=== PATIENT | female | born 1940 | race Caucasian/White ===

== ENCOUNTER 2016-12-24 10:18 | Inpatient (IN) | payer MEDICARE, MEDICAID ==
[~2016-12-24] VITALS: Ht 157.5 cm; Wt 58.6 kg
[2016-12-24] VITALS (8 sets, daily range): BP systolic 108–122; BP diastolic 50–56; PULSE 71–85; RESP 18–20; TEMP 98.2–98.3; O2SAT 92–100
[2016-12-24] MEDS ORDERED: SODIUM CHLOR 0.9% 250 ML INJ 250 ML IV ONE (11:15)
[2016-12-24] MEDS ORDERED: SODIUM CHLORIDE 0.9% FLUSH 10 ML FLUSH IVF PRN (11:15)
[2016-12-24 11:48] LABS: APTT (PATIENT) 23.9 SEC (24.3-30.1); PROTHROMBIN TIME - PATIENT 10.5 SEC (9.8-11.6)
[2016-12-24 12:03] LABS: ALKALINE PHOSPHATASE 68 U/L (45-117); ALT (GPT) 22 U/L (10-53); ANION GAP 10 MEQ/L (5-15); AST (GOT) 18 U/L (15-37); BICARBONATE 21.4 MEQ/L (21.0-32.0); BLOOD UREA NITROGEN 7 MG/DL (7-18); CHLORIDE 91 MEQ/L (98-107); GLOMERULAR FILTRATION RATE 120 ML/MIN (>89); MAGNESIUM 1.5 MG/DL (1.5-2.5); POTASSIUM 4.1 MEQ/L (3.5-5.1); TOTAL BILIRUBIN ADULT 0.5 MG/DL (0.2-1.0)
[2016-12-24 12:04] LABS: CREATINE KINASE 58 U/L (26-192)
[2016-12-24 12:06] LABS: SODIUM (NA) 122 MEQ/L (136-145)
[2016-12-24 12:07] LABS: BACTERIA, URINE OCC /hpf; BLOOD, URINE NEG (NEG); COMMENT (UR) CULT NOT INDICATED; CULTURE IF INDICATED CULT NOT INDICATED; GLUCOSE,URINE NEG (NEG); HYALINE CAST, URINE 1 /lpf (RARE); KETONE, URINE NEG (NEG); MUCUS URINE FEW /lpf (OCC); NITRITE,URINE NEG (NEG); SQUAMOUS EPITHELIAL CELL URINE 3 /hpf (0-5); TRANSITIONAL EPI CELLS, URINE <1 /hpf; URINE COLOR YELLOW (YELLW/STRAW)
--- NOTE | 2016-12-24 12:42 | RADRPT ---
EXAM DATE/TIME: 12/24/2016 12:15 [facility] COMPARISON: No previous studies available for comparison. INDICATIONS : Near syncopal episode to day, fall hit head. RADIATION DOSE: 3489 CTDIvol (mGy) MEDICAL HISTORY : Carcinoma, lung. Thyroid disease SURGICAL HISTORY : None. ENCOUNTER: Initial ACUITY: 1 day PAIN SCALE: 5/10 LOCATION: cranial TECHNIQUE: Multiple contiguous axial images were obtained of the head. Using automated exposure control and adj ustment of the mA and/or kV according to patient size, radiation dose was kept as low as reasonably a chievable to obtain optimal diagnostic quality images. FINDINGS: CEREBRUM: The ventricles are normal for age. No evidence of midline shift, mass lesion, hemorrhage or acute in farction. No extra-axial fluid collections are seen. POSTERIOR FOSSA: The cerebellum and brainstem are intact. The 4th ventricle is midline. The cerebellopontine angle i s unremarkable. EXTRACRANIAL: The visualized portion of the orbits is intact. SKULL: Soft tissue swelling consistent with a small cephalhematoma is identified along the right posterior p arietal region. The calvaria is intact. No evidence of skull fracture. CONCLUSION: Right parietal cephalhematoma. No evidence of acute intracranial trauma. No evidence of acute infarct, hemorrhage, mass or edema. Norberto Harry MD on December 24, 2016 at 12:38 Board Certified Radiologist. This report was verified electronically.
[2016-12-24] MEDS ORDERED: SODIUM CHLOR 0.9% 1000 ML INJ 1,000 ML IV SCH ×2 (12:45→15:00)
--- NOTE | 2016-12-24 13:03 | RADRPT ---
EXAM DATE/TIME: 12/24/2016 11:59 [facility] COMPARISON: CHEST SINGLE AP, December 24, 2016, 11:55. INDICATIONS : Neck pain, fall. MEDICAL HISTORY : Carcinoma, lung. SURGICAL HISTORY : None. ENCOUNTER: Initial ACUITY: 1 day PAIN SCORE: 2/10 LOCATION: Left neck FINDINGS: There are 7 cervical type vertebral bodies. The alignment is adequate. There are advanced degenerativ e changes in the atlantodens joint. There are degenerated disc at C3/4, C4/5 and C5/6. There is bony foraminal narrowing at C4/5 and C5/6 bilaterally. Note is made of a mild compression fracture in the upper/midthoracic spine. This appears sclerotic an d may be old. CONCLUSION: 1. Degenerative arthritic changes. No acute cervical fracture. 2. Incidental note is made of an age indeterminate compression fracture in the upper/mid thoracic spi ne Roldan Goldstein MD on December 24, 2016 at 12:59 Board Certified Radiologist. This report was verified electronically.
--- NOTE | 2016-12-24 13:10 | RADRPT ---
EXAM DATE/TIME: 12/24/2016 11:55 [facility] COMPARISON: No previous studies available for comparison. INDICATIONS : Palpitations. MEDICAL HISTORY : Carcinoma, lung. SURGICAL HISTORY : None. ENCOUNTER: Initial ACUITY: 1 day PAIN SCORE: 0/10 LOCATION: Bilateral chest FINDINGS: Lungs are hyperinflated. There is coarse interstitial prominence throughout both lungs with emphysema tous changes in the upper lobes. There is no evidence of segmental or lobar consolidation. There are no masslike densities. Right subclavian [id number] is in place. Heart is normal in size. 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 No evidence of significant consolidation or suspicious mass densities. Nroberto Harry MD on December 24, 2016 at 13:07 Board Certified Radiologist. This report was verified electronically.
--- NOTE | 2016-12-24 13:13 | PD ---
HPI Chief Complaint: Fall Time Seen by Provider: 10:28 Travel History International Travel<30 days: No Contact w/Intl Traveler<30days: No Traveled to known affect area: No History of Present Illness HPI This is a 76-year-old female patient with depressed medical history of small cell lung cancer with status post recent chemotherapy completed last dose last week who presents with a complaint of feeling in lightheaded and dizzy and passing out and subsequently hitting the back of her head on the floor. Patient uncertain whether she completely blacked out. Patient complains of feeling weak. Patient complains of headache in the back of that he wear she has noted there is a area of swelling. Patient denies chest pain shortness of breath nausea vomiting diarrhea fever chills and also denies urinary symptoms. PFSH Past Medical History Cancer: Yes (Lung currently on Chemo) Medical other: Yes (Vit D defiency) Musculoskeletal: Yes Thyroid Disease: Yes ?: Not Social History Alcohol Use: No Tobacco Use: Yes (0.5ppd) Substance Use: No Allergies-Medications (Allergen,Severity, Reaction): Coded Allergies: Shellfish (Verified Allergy, Unknown, 12/24/16) Reported Meds & Prescriptions Reported Meds & Active Scripts Active Reported [Salt Tablet] 1 Tab PO DAILY Tramadol (Tramadol HCl) 50 Mg Tab 50 Mg PO Q6H PRN [place] (Hydrocodone-Acetaminophen) 7.5-325 mg Tab 1 Tab PO Q8HR PRN Vitamin D3 (Cholecalciferol) 1,000 Unit Tab 1,000 Units PO DAILY Levothyroxine (Levothyroxine Sodium) 50 Mcg Tab 50 Mcg PO DAILY Duoneb (Ipratropium-Albuterol Neb) 0.5-2.5 Mg/3 Ml Neb 3 Ml NEB Q6HR PRN Review of Systems ROS Limitations: Clinical Condition General / Constitutional: No: Fever, Chills, Weight Gain, Weight Loss, Other Eyes: No: Diploplia, Blurred Vision, Photophobia, Drainage, Redness, Foreign Body Sensation, Pain, Tearing, Blind Spots, Visual changes, Blindness, Other HENT: No: Headaches, Vertigo, Lightheadedness, Sore Throat, Rhinitis, Rhinorrhea, Congestion, Nosebleed, Neck Stiffness, Neck Pain, Masses, Gingival Bleeding, Dental Difficulties, Ear Discharge, Earache, Other Cardiovascular: No: Chest Pain or Discomfort, Palpitations, Irregular Rhythm, Tachycardia, Diaphoresis, Syncope, Dyspnea on exertion, Varicosities, Edema, Cyanosis, Varicosities, Phlebitis, Claudication, Other Respiratory: No: Cough, Shortness of Breath, Wheezing, Sneezing, Orthopnea, Hemoptysis, Stridor, Night Sweats, Pleuritic Pain, Other Gastrointestinal: No: Nausea, Vomiting, Diarrhea, Abdominal Pain, Hematemesis, Hematochezia, Constipation, Changes in Bowel Habits, Indigestion, Dysphagia, Loss of Appetite, Other Genitourinary: No: Urgency, Frequency, Dysuria, Nocturia, Hematuria, Decreased Urinary Output, Oliguria, Hesitancy, Dribbling, Incontinence, Pelvic Pain, Flank Pain, Dyspareunia, Discharge, Dysmenorrhea, Menorrhagia, Metorrhagia, Vaginal Bleeding, Other Musculoskeletal: No: Myalgias, Arthralgias, Limited ROM, Weakness, Cramping, Edema, Pain, Atrophy, Other Skin: No Rash, No Itching, No Dryness, No Lumps, No Hives, No Change in Pigmentation, No Change in nails, No Alopecia, No Lesions, No Breast Lumps, No Breast Tenderness, No Breast Swelling, No Other Neurologic: Positive: Weakness, Dizziness, Syncope, Headache, Other (weakness ) , No: Focal Abnormalities, Coordination Problem, Tremor, Ataxia, Change in Mentation, Slurred Speech, Paresthesia, Incontinence, Seizures, Sensory Disturbance Psychiatric: No: Anxiety, Depression, Suicidal Ideations, Disorder of Thought, Mood Disorder, Substance Abuse, Homicidal Ideation, Other Endocrine: No: Heat Intolerance, Cold Intolerance, Polyuria, Polydipsia, Other Hematologic/Lymphatic: No: Easy Bruising, Lymph Node Enlargement, Other Physical Exam Exam Limitations: Clinical Condition Narrative GENERAL: 76-year-old in no acute distress SKIN: Focused skin assessment warm/dry.no lesions no cyanosis no erythema or pallor noted HEAD: Atraumatic. Normocephalic. Hematoma in the area of the parietal occipital scalp EYES: Pupils equal and round and reactive . No scleral icterus. No injection or drainage. ENT: No nasal bleeding or discharge. Mucous membranes pink and moist. NECK: Trachea midline. No JVD. No palpable tenderness to the cervical spine range of motion of cervical spine normal CARDIOVASCULAR: S1-S2 appreciated. PMI displaced laterally Regular rate and rhythm. No murmur appreciated. Pulses normal throughout. RESPIRATORY: No accessory muscle use. Clear to auscultation. Breath sounds equal bilaterally. GASTROINTESTINAL: Abdomen soft, non-tender, nondistended. Hepatic and splenic margins not palpable. Bowel sounds normal. No peritoneal signs. MUSCULOSKELETAL: No obvious deformities. No clubbing. No cyanosis. No edema. NEUROLOGICAL: Awake and alert and oriented 3.. Patient did with position change or neurologic deficits noted No obvious cranial nerve deficits. No sensory deficits . Normal speech. No meningeal signs. PSYCHIATRIC: Appropriate mood and affect; insight and judgment normal. No suicidal or homicidal ideation. Data Data Last Documented VS Vital Signs Date Time Temp Pulse Resp B/P Pulse Ox O2 Delivery O2 Flow Rate FiO2 12/24/16 12:27 71 18 108/56 99 Room Air 12/24/16 10:45 98.3 Orders Electrocardiogram (12/24/16 11:01) Basic Metabolic Panel (Bmp) (12/24/16 11:01) Comprehensive Metabolic Panel (12/24/16 11:01) Magnesium (Mg) (12/24/16 11:01) Ckmb (Isoenzyme) Profile (12/24/16 11:01) Troponin I (12/24/16 11:01) Act Partial Throm Time (Ptt) (12/24/16 11:01) Prothrombin Time / Inr (Pt) (12/24/16 11:01) Urinalysis - C+S If Indicated (12/24/16 11:01) Chest, Single Ap (12/24/16 11:01) Ct Brain W/O Iv Contrast(Rout) (12/24/16 11:01) Ecg Monitoring (12/24/16 11:01) Iv Access Insert/Monitor (12/24/16 11:01) Oximetry (12/24/16 11:01) Sodium Chloride 0.9% Flush (Ns Flush) (12/24/16 11:15) ^ Other Nursing Orders (12/24/16 11:01) Orthostatic Blood Pressure (12/24/16 11:01) Sodium Chlor 0.9% 250 Ml Inj (Ns 250 Ml (12/24/16 11:15) Spine, Cervical Compl([id number]) (12/24/16 ) Complete Blood Count With Diff (12/24/16 11:30) Sodium Chlor 0.9% 1000 Ml Inj (Ns 1000 M (12/24/16 12:45) Urine Culture (12/24/16 13:41) Ceftriaxone Inj (Rocephin Inj) (12/24/16 13:45) Consult Nephrology (12/24/16 ) Blood Culture (12/24/16 14:19) Vancomycin Inj (Vancomycin Inj) (12/24/16 14:30) Admit To Inpatient (12/24/16 ) Vital Signs (Adult) Q4H (12/24/16 14:32) Activity Oob With Assistance (12/24/16 14:32) Appointment Scheduler / Telemetry .CONTINUOUS (12/24/16 14:32) Intake + Output [place].QSHIFT (12/24/16 14:32) Diet Heart Healthy (12/24/16 Dinner) Sodium Chlor 0.9% 1000 Ml Inj (Ns 1000 M (12/24/16 15:00) Sodium Chloride 0.9% Flush (Ns Flush) (12/24/16 14:45) Sodium Chloride 0.9% Flush (Ns Flush) (12/24/16 21:00) Acetaminophen (Tylenol) (12/24/16 14:45) Ondansetron Inj (Zofran Inj) (12/24/16 14:45) Comprehensive Metabolic Panel (12/25/16 06:00) Complete Blood Count With Diff (12/25/16 06:00) Scd Bilateral/Knee High [place].BID (12/24/16 14:32) Naloxone Inj (Narcan Inj) (12/24/16 14:45) Docusate Sodium-Senna (Meryl-Colace) (12/24/16 21:00) Magnesium Hydroxide Liq (Milk Of Magnesi (12/24/16 14:45) Sennosides (Senokot) (12/24/16 14:45) Bisacodyl Supp (Dulcolax Supp) (12/24/16 14:45) Lactulose Liq (Lactulose Liq) (12/24/16 14:45) Inpatient Certification (12/24/16 ) Consult Medical Oncology (12/24/16 ) Cholecalciferol (Vitamin D3) (12/25/16 09:00) Levothyroxine (Synthroid) (12/25/16 06:00) Albuterol-Ipratropium Neb (Duoneb Neb) (12/24/16 14:45) Thyroid Stimulating Hormone (12/25/16 06:00) Free Thyroxine (T4) (12/25/16 06:00) Vitamin D, 25-Hydroxy (12/25/16 06:00) Ceftriaxone Inj (Rocephin Inj) (12/25/16 15:00) Admit Order (Ed Use Only) (12/24/16 15:09) Labs Laboratory Tests Test 12/24/16 12/24/16 12/24/16 11:16 11:19 11:42 White Blood Count 1.1 TH/MM3 Red Blood Count 3.57 MIL/MM3 Hemoglobin 10.2 GM/DL Hematocrit 29.1 % Mean Corpuscular Volume 81.7 FL Mean Corpuscular Hemoglobin 28.5 PG Mean Corpuscular Hemoglobin 34.9 % Concent Red Cell Distribution Width 12.8 % Platelet Count 97 TH/MM3 Mean Platelet Volume 8.1 FL Neutrophils (%) (Auto) % Lymphocytes (%) (Auto) % Monocytes (%) (Auto) % Eosinophils (%) (Auto) % Basophils (%) (Auto) % Neutrophils # (Auto) TH/MM3 Lymphocytes # (Auto) TH/MM3 Monocytes # (Auto) TH/MM3 Eosinophils # (Auto) TH/MM3 Basophils # (Auto) TH/MM3 CBC Comment AUTO DIFF Differential Total Cells 100 Counted Neutrophils % (Manual) 16 % Lymphocytes % 79 % Monocytes % 4 % Eosinophils % 1 % Neutrophils # (Manual) 0.2 TH/MM3 Differential Comment FINAL DIFF MANUAL Platelet Estimate LOW Platelet Morphology Comment NORMAL Prothrombin Time 10.5 SEC Prothromb Time International 1.0 RATIO Ratio Activated Partial 23.9 SEC Thromboplast Time Sodium Level 122 MEQ/L Potassium Level 4.1 MEQ/L Chloride Level 91 MEQ/L Carbon Dioxide Level 21.4 MEQ/L Anion Gap 10 MEQ/L Blood Urea Nitrogen 7 MG/DL Creatinine 0.50 MG/DL Estimat Glomerular Filtration 120 ML/MIN Rate Random Glucose 80 MG/DL Calcium Level 8.6 MG/DL Magnesium Level 1.5 MG/DL Total Bilirubin 0.5 MG/DL Aspartate Amino Transf 18 U/L (AST/SGOT) Alanine Aminotransferase 22 U/L (ALT/SGPT) Alkaline Phosphatase 68 U/L Total Creatine Kinase 58 U/L Troponin I LESS THAN 0.02 NG/ML Total Protein 6.6 GM/DL Albumin 3.1 GM/DL Urine Color YELLOW Urine Turbidity CLEAR Urine pH 7.0 Urine Specific [place] 1.010 Urine Protein TRACE mg/dL Urine Glucose (UA) NEG mg/dL Urine Ketones NEG mg/dL Urine Occult Blood NEG Urine Nitrite NEG Urine Bilirubin NEG Urine Urobilinogen LESS THAN 2.0 MG/DL Urine Leukocyte Esterase MOD Urine RBC 1 /hpf Urine WBC 7 /hpf Urine Squamous Epithelial 3 /hpf Cells Urine Transitional Epithelial <1 /hpf Cells Urine Bacteria OCC /hpf Urine Hyaline Casts 1 /lpf Urine Mucus FEW /lpf Urine Yeast (Budding) RARE Microscopic Urinalysis Comment CULT NOT INDICATED MDM Medical Decision Making Medical Screen Exam Complete: Yes Emergency Medical Condition: Yes Medical Record Reviewed: Yes Interpretation(s) EKG shows normal sinus rhythm LVH and no acute ST-T wave changes CT scan of the brain no mass bleed or infarct noted in the area of the parietal scalp bony fracture noted Cervical spine shows DJD questionable old compression type fracture at C7-T1 Differential Diagnosis Differential diagnosis closed head injury and scalp hematoma syncope hyponatremia urinary tract infection Narrative Course ORTHOSTATICS DONE 250 mL bolus of normal saline given patient still dizzy on position change white cell count normal sodium of 122 normal saline at 250 cc an hour to correct hyponatremia UA shows moderate leukocyte culture done iv rocephin given case discussed with ruthie esparza nurse practitioner affiliated with Dr. Doe patient to be admitted to a monitored bed Physician Communication Physician Communication Nurse practitioner in Dr. Albarran office Ruthie Case discussed with Dr. 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 3% NS run through erik cath. Also spoke to Dr. Sifuentes oncology and discuss presence of neutropenia patient , when antibiotics and will admit to a bit with neutropenic precautions Diagnosis Primary Impression: Syncope Qualified Code: R55 - Syncope, unspecified syncope type Additional Impressions: Hyponatremia Urinary tract infection Closed head injury Qualified Code: S09.90XA - Closed head injury, initial encounter Neutropenia Admitting Information Admitting Physician Requests: Admit Condition: Stable Elizabeth Mane MD Dec 24, 2016 13:13
[2016-12-24] MEDS ORDERED: LEVO50TA4 PO (13:19)
[2016-12-24] MEDS ORDERED: TRAM50TA PO (13:19)
[2016-12-24] MEDS ORDERED: IPRASOL NEB (13:19)
[2016-12-24] MEDS ORDERED: HYDR-3288 PO (13:19)
[2016-12-24] MEDS ORDERED: VITA100018 PO (13:19)
[2016-12-24] MEDS ORDERED: SALT TABLET PO (13:19)
[2016-12-24 13:29] LABS: HEMATOCRIT 29.1 % (35.0-46.0); MEAN CELL VOLUME 81.7 FL (80.0-100.0); MEAN CORPUSCULAR HEMOGLOBIN 28.5 PG (27.0-34.0); MEAN CORPUSCULAR HGB CONC 34.9 % (32.0-36.0); PLATELET COUNT 97 TH/MM3 (150-450); RED BLOOD COUNT 3.57 MIL/MM3 (4.00-5.30); RED CELL DISTRIBUTION WIDTH 12.8 % (11.6-17.2); WHITE BLOOD COUNT 1.1 TH/MM3 (4.0-11.0)
[2016-12-24 13:34] LABS: HEMO FLAGS AUTO DIFF
[2016-12-24] MEDS ORDERED: cefTRIAXone INJ 1,000 MG in SODIUM CHLORIDE 0.9% INJ 100 ML IV ONE (13:45)
[2016-12-24 14:15] LABS: EOSINOPHILS 1 % (0-4); POLYS (SEG NEUTROPHILS) 16 % (16-70); WBC DIFF SAMPLE 100
[2016-12-24 14:18] LABS: NEUTROPHIL # MANUAL DIFF 0.2 TH/MM3 (1.8-7.7); PLATELET ESTIMATE SMEAR LOW (NORMAL); PLATELET MORPHOLOGY NORMAL (NORMAL)
[2016-12-24 14:19] LABS: SCAN/DIFF FINAL DIFF MANUAL
[2016-12-24] MEDS ORDERED: VANCOMYCIN INJ 1,000 MG in SODIUM CHLOR 0.9% 250 ML INJ 250 ML IV ONE (14:30)
[2016-12-24] MEDS ORDERED: NALOXONE HCL 0.4 MG/ML AMP IV PRN (14:45)
[2016-12-24] MEDS ORDERED: RESP: ALBUTEROL 2.5 MG/IPRATROPIUM 0.5 MG NEB (PRN) NEB (14:45)
[2016-12-24] MEDS ORDERED: MAGNESIUM HYDROXIDE SUSP 30 ML CUP PO PRN (14:45)
[2016-12-24] MEDS ORDERED: LACTULOSE SYRUP 20 GM/30 ML CUP PO PRN (14:45)
[2016-12-24] MEDS ORDERED: ACETAMINOPHEN 325 MG TAB PO PRN (14:45)
[2016-12-24] MEDS ORDERED: BISACODYL 10 MG SUPP RECTAL PRN (14:45)
[2016-12-24] MEDS ORDERED: SENNOSIDES 8.6 MG TAB PO PRN (14:45)
[2016-12-24] MEDS ORDERED: 3% SALINE INJ 500 ML IV ONE (15:15)
--- NOTE | 2016-12-24 18:18 | PD.CONS ---
HPI Service Nephrology Consult Requested By Dr. Mane Reason for Consult Hyponatremia Primary Care Physician Kelechi Doe, DO History of Present Illness Patient is 76-year-old white female with history of small cell lung cancer undergoing chemotherapy and she was scheduled to undergo radiation treatment as well, patient said she felt weak and dizzy and lost her consciousness and had a fall hitting her head posteriorly causing a bump, her sodium is 122, she states that it has been a problem and she takes salt tablets. Review of Systems Constitutional: COMPLAINS OF: Fatigue Neurologic: COMPLAINS OF: Abnormal gait Psychiatric: COMPLAINS OF: Anxiety Past Family Social History Allergies: Coded Allergies: Shellfish (Verified Allergy, Unknown, 12/24/16) Past Medical History Small cell lung cancer Cigarette smoker Hypothyroidism Past Surgical History None Reported Medications Reported Meds & Active Scripts Active Reported [Salt Tablet] 1 Tab PO DAILY Tramadol (Tramadol HCl) 50 Mg Tab 50 Mg PO Q6H PRN [place] (Hydrocodone-Acetaminophen) 7.5-325 mg Tab 1 Tab PO Q8HR PRN Vitamin D3 (Cholecalciferol) 1,000 Unit Tab 1,000 Units PO DAILY Levothyroxine (Levothyroxine Sodium) 50 Mcg Tab 50 Mcg PO DAILY Duoneb (Ipratropium-Albuterol Neb) 0.5-2.5 Mg/3 Ml Neb 3 Ml NEB Q6HR PRN Active Ordered Medications Current Medications Medications (Trade) Dose Ordered Sig/[place] Route Start Time Stop Time Status Last Admin (NS 1000 ml Inj) 1,000 ml @ 100 mls/hr Q10H IV 12/24/16 15:00 12/24/16 15:00 (NS Flush) 2 ml UNSCH PRN IV FLUSH 12/24/16 14:45 (NS Flush) 2 ml BID IV FLUSH 12/24/16 21:00 (Tylenol) 650 mg Q4H PRN PO 12/24/16 14:45 (Zofran Inj) 4 mg Q6H PRN IVP 12/24/16 14:45 (Narcan Inj) 0.4 mg UNSCH PRN IV 12/24/16 14:45 (Meryl-Colace) 1 tab BID PO 12/24/16 21:00 (Milk Of Magnesia Liq) 30 ml Q12H PRN PO 12/24/16 14:45 (Senokot) 17.2 mg Q12H PRN PO 12/24/16 14:45 (Dulcolax Supp) 10 mg DAILY PRN [place] 12/24/16 14:45 Lactulose 30 ml 30 ml DAILY PRN PO 12/24/16 14:45 (Rocephin Inj/NS Inj) 100 ml @ 200 mls/hr Q24H IV 12/25/16 15:00 (Vitamin D3) 1,000 units DAILY PO 12/25/16 09:00 Levothyroxine Sodium 50 mcg 50 mcg DAILY@06 PO 12/25/16 06:00 (Sodium Chloride 3% Inj) 500 ml @ 10 mls/hr ONCE ONCE IV 12/24/16 15:15 12/26/16 17:14 12/24/16 15:59 Family History Noncontributory Social History She smokes all her adult life and currently smoking as well cut down to 5-6 cigarettes a day Denies alcohol abuse Physical Exam Vital Signs Vital Signs Date Time Temp Pulse Resp B/P Pulse Ox O2 Delivery O2 Flow Rate FiO2 12/24/16 16:00 72 18 114/55 96 Room Air 12/24/16 12:27 71 18 108/56 99 Room Air 12/24/16 11:08 18 100 Room Air 12/24/16 10:45 75 18 100 Room Air 12/24/16 10:45 98.3 81 18 109/50 100 Room Air Physical Exam GENERAL: Well-nourished, well-developed patient. SKIN: Warm and dry. HEAD: Normocephalic. EYES: No scleral icterus. No injection or drainage. NECK: Supple, trachea midline. No JVD or lymphadenopathy. CARDIOVASCULAR: Regular rate and rhythm without murmurs, gallops, or rubs. RESPIRATORY: Breath sounds equal bilaterally. No accessory muscle use. GASTROINTESTINAL: Abdomen soft, non-tender, nondistended. EXTREMITIES: No cyanosis, or edema. NEUROLOGICAL: Awake, alert, and oriented x 3. Non-focal. Laboratory Laboratory Tests Test 12/24/16 12/24/16 12/24/16 11:16 11:19 11:42 White Blood Count 1.1 Red Blood Count 3.57 Hemoglobin 10.2 Hematocrit 29.1 Mean Corpuscular Volume 81.7 Mean Corpuscular Hemoglobin 28.5 Mean Corpuscular Hemoglobin 34.9 Concent Red Cell Distribution Width 12.8 Platelet Count 97 Mean Platelet Volume 8.1 Neutrophils (%) (Auto) Lymphocytes (%) (Auto) Monocytes (%) (Auto) Eosinophils (%) (Auto) Basophils (%) (Auto) Neutrophils # (Auto) Lymphocytes # (Auto) Monocytes # (Auto) Eosinophils # (Auto) Basophils # (Auto) CBC Comment AUTO DIFF Differential Total Cells 100 Counted Neutrophils % (Manual) 16 Lymphocytes % 79 Monocytes % 4 Eosinophils % 1 Neutrophils # (Manual) 0.2 Differential Comment FINAL DIFF MANUAL Platelet Estimate LOW Platelet Morphology Comment NORMAL Prothrombin Time 10.5 Prothromb Time International 1.0 Ratio Activated Partial 23.9 Thromboplast Time Sodium Level 122 Potassium Level 4.1 Chloride Level 91 Carbon Dioxide Level 21.4 Anion Gap 10 Blood Urea Nitrogen 7 Creatinine 0.50 Estimat Glomerular Filtration 120 Rate Random Glucose 80 Calcium Level 8.6 Magnesium Level 1.5 Total Bilirubin 0.5 Aspartate Amino Transf 18 (AST/SGOT) Alanine Aminotransferase 22 (ALT/SGPT) Alkaline Phosphatase 68 Total Creatine Kinase 58 Troponin I LESS THAN 0.02 Total Protein 6.6 Albumin 3.1 Urine Color YELLOW Urine Turbidity CLEAR Urine pH 7.0 Urine Specific [place] 1.010 Urine Protein TRACE Urine Glucose (UA) NEG Urine Ketones NEG Urine Occult Blood NEG Urine Nitrite NEG Urine Bilirubin NEG Urine Urobilinogen LESS THAN 2.0 Urine Leukocyte Esterase MOD Urine RBC 1 Urine WBC 7 Urine Squamous Epithelial 3 Cells Urine Transitional Epithelial <1 Cells Urine Bacteria OCC Urine Hyaline Casts 1 Urine Mucus FEW Urine Yeast (Budding) RARE Microscopic Urinalysis Comment CULT NOT INDICATED Date/Time Procedure Status Source Growth 12/24/16 11:42 Urine Culture Received Urine Clean Catch Pending Result Diagram: 12/24/16 1116 12/24/16 1119 Imaging Last Impressions Head CT 12/24/16 1101 Signed Impressions: Service Date/Time: December 12:15 - CONCLUSION: Right parietal cephalhematoma. No evidence of acute intracranial trauma. No evidence of acute infarct, hemorrhage, mass or edema. 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 No evidence of significant consolidation or suspicious mass densities. Norberto Harry MD Cervical Spine X-Ray 12/24/16 0000 Signed Impressions: Service Date/Time: December 11:59 - CONCLUSION: 1. Degenerative arthritic changes. No acute cervical fracture. 2. Incidental note is made of an age indeterminate compression fracture in the upper/mid thoracic spine Roldan Goldstein MD Assessment and Plan Problem List: (1) Hyponatremia Plan: This is likely due to SIADH and lung cancer patient, she should benefit from 3% hypertonic saline which was started the At this point that I have ordered urine osmolality and urine sodium as well I will hold off the normal saline for now. Her sodium was 121 on 12/09/16 (2) Closed head injury (3) Neutropenia Plan: She received the carboplatin and Etoposide Continue to monitor (4) Syncope Plan: Likely due to hyponatremia (5) Urinary tract infection Plan: She was placed on ceftriaxone Problem Qualifiers (1) Closed head injury: Qualified Code: S09.90XA - Closed head injury, initial encounter (2) Syncope: Qualified Code: R55 - Syncope, unspecified syncope type (3) Urinary tract infection: Brittany Corrigan MD Dec 24, 2016 18:18 Brittany Corrigan MD Dec 24, 2016 18:18
[2016-12-24] MEDS: SODIUM CHLORIDE 0.9% FLUSH 10 ML FLUSH IV FLUSH SCH (21:00)
[2016-12-24] MEDS: DOCUSATE SODIUM 50 MG/SENNA 8.6 MG TAB PO SCH (21:00)
[2016-12-25 02:25] LABS: HEMATOCRIT 25.4 % (35.0-46.0); MEAN CELL VOLUME 81.2 FL (80.0-100.0); MEAN CORPUSCULAR HEMOGLOBIN 28.5 PG (27.0-34.0); MEAN CORPUSCULAR HGB CONC 35.1 % (32.0-36.0); PLATELET COUNT 62 TH/MM3 (150-450); RED BLOOD COUNT 3.13 MIL/MM3 (4.00-5.30); RED CELL DISTRIBUTION WIDTH 12.7 % (11.6-17.2); WHITE BLOOD COUNT 0.9 TH/MM3 (4.0-11.0)
[2016-12-25 02:29] LABS: HEMO FLAGS AUTO DIFF
[2016-12-25 02:35] LABS: ALT (GPT) 18 U/L (10-53); ANION GAP 7 MEQ/L (5-15); AST (GOT) 11 U/L (15-37); BICARBONATE 24.1 MEQ/L (21.0-32.0); BLOOD UREA NITROGEN 8 MG/DL (7-18); CHLORIDE 98 MEQ/L (98-107); GLOMERULAR FILTRATION RATE 120 ML/MIN (>89); SODIUM (NA) 129 MEQ/L (136-145)
[2016-12-25 02:44] LABS: ALKALINE PHOSPHATASE 60 U/L (45-117); FREE T4 1.33 NG/DL (0.76-1.46); TOTAL BILIRUBIN ADULT 0.4 MG/DL (0.2-1.0)
[2016-12-25 03:22] LABS: EOSINOPHILS 1 % (0-4); PLATELET ESTIMATE SMEAR LOW (NORMAL); PLATELET MORPHOLOGY NORMAL (NORMAL); POLYS (SEG NEUTROPHILS) 19 % (16-70); WBC DIFF SAMPLE 100
[2016-12-25 03:23] LABS: SCAN/DIFF FINAL DIFF MANUAL
[2016-12-25 03:25] LABS: NEUTROPHIL # MANUAL DIFF 0.2 TH/MM3 (1.8-7.7)
[2016-12-25 04:00] VITALS: BP 94/51; PULSE 66; RESP 20; TEMP 97.4; O2SAT 95
[2016-12-25] MEDS: LEVOTHYROXINE SODIUM 50 MCG TAB PO SCH (06:06)
--- NOTE | 2016-12-25 07:59 | HHI.HP ---
History of Present Illness Service Family medicine Primary Care Physician Kelechi Doe, DO Admission Diagnosis HYPONATREMIA NEUTROPNEIA SYNCOPE CLOSED HEAD INJURY Diagnoses: History of Present Illness Patient is a 76 year old female admitted s/p fall with hyponatremia, neutropenia , and syncope. Patient with a history of small cell lung cancer and is undergoing chemotherapy last treatment last week. She is also scheduled for radiation treatment. Yesterday patient felt weak and dizzy and then lost consciousness and fell hitting her head. On admission her sodium was 122. 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 3 % Hypertonic saline given overnight with sodium level at 129 this AM. Patients WBC also low and oncology was consulted for recommendations. Chest Xray with COPD and fibrotic appearing disease. Head CT with no evidence of acute intracranial trauma. Review of Systems Constitutional: COMPLAINS OF: Fatigue, Dizziness, DENIES: Fever, Chills Respiratory: COMPLAINS OF: Cough, DENIES: Wheezing, Shortness of breath Cardiovascular: COMPLAINS OF: Syncope, DENIES: Chest pain, Palpitations, Lower Extremity Edema Gastrointestinal: COMPLAINS OF: Abdominal pain, Bloody stools, Constipation, Diarrhea, DENIES: Black stools Integumentary: DENIES: Pruritus, Rash Neurologic: COMPLAINS OF: Abnormal gait Psychiatric: COMPLAINS OF: Anxiety, Depression Past Family Social History Allergies: Coded Allergies: Shellfish (Verified Allergy, Unknown, 12/24/16) Past Medical History Hypothyroidism Small cell lung cancer cigarette smoker Past Surgical History Port placement for chemo Active Ordered Medications Current Medications Medications (Trade) Dose Ordered Sig/Alma Route Start Time Stop Time Status Last Admin (NS Flush) 2 ml UNSCH PRN IV FLUSH 12/24/16 14:45 (NS Flush) 2 ml BID IV FLUSH 12/24/16 21:00 (Tylenol) 650 mg Q4H PRN PO 12/24/16 14:45 12/24/16 22:58 (Zofran Inj) 4 mg Q6H PRN IVP 12/24/16 14:45 (Narcan Inj) 0.4 mg UNSCH PRN IV 12/24/16 14:45 (Meryl-Colace) 1 tab BID PO 12/24/16 21:00 (Milk Of Magnesia Liq) 30 ml Q12H PRN PO 12/24/16 14:45 (Senokot) 17.2 mg Q12H PRN PO 12/24/16 14:45 (Dulcolax Supp) 10 mg DAILY PRN RECTAL 12/24/16 14:45 Lactulose 30 ml 30 ml DAILY PRN PO 12/24/16 14:45 (Rocephin Inj/NS Inj) 100 ml @ 200 mls/hr Q24H IV 12/25/16 15:00 (Vitamin D3) 1,000 units DAILY PO 12/25/16 09:00 Levothyroxine Sodium 50 mcg 50 mcg DAILY@06 PO 12/25/16 06:00 12/25/16 06:06 (Sodium Chloride 3% Inj) 500 ml @ 10 mls/hr ONCE ONCE IV 12/24/16 15:15 12/26/16 17:14 12/24/16 15:59 Family History Father with colon cancer Mother healthy Social History Smokes 4-5 cigarettes per day no ETOH use lives with family Physical Exam Vital Signs Vital Signs Date Time Temp Pulse Resp B/P Pulse Ox O2 Delivery O2 Flow Rate FiO2 12/25/16 04:00 97.4 66 20 94/51 95 12/24/16 23:02 98.2 85 20 122/56 93 12/24/16 22:44 78 12/24/16 22:40 92 12/24/16 19:21 79 18 112/54 96 Room Air 12/24/16 16:00 72 18 114/55 96 Room Air 12/24/16 12:27 71 18 108/56 99 Room Air 12/24/16 11:08 18 100 Room Air 12/24/16 10:45 75 18 100 Room Air 12/24/16 10:45 98.3 81 18 109/50 100 Room Air Physical Exam GENERAL: Alert and cooperative in no apparent distress. SKIN: No rashes, ecchymoses or lesions. Cool and dry. HEAD: Hematoma present on back of head EYES: Pupils equal round and reactive. CARDIOVASCULAR: Regular rate and rhythm without murmurs, gallops, or rubs. RESPIRATORY: Clear to auscultation. Breath sounds equal bilaterally. No wheezes , rales, or rhonchi. GASTROINTESTINAL: Abdomen soft, non-tender, nondistended. MUSCULOSKELETAL: Extremities without clubbing, cyanosis, or edema. Negative Homans sign bilaterally. NEUROLOGICAL: Awake and alert. Normal speech. Laboratory Laboratory Tests Test 12/24/16 12/24/16 12/24/16 12/25/16 11:16 11:19 11:42 01:50 White Blood Count 1.1 0.9 Red Blood Count 3.57 3.13 Hemoglobin 10.2 8.9 Hematocrit 29.1 25.4 Mean Corpuscular Volume 81.7 81.2 Mean Corpuscular Hemoglobin 28.5 28.5 Mean Corpuscular Hemoglobin 34.9 35.1 Concent Red Cell Distribution Width 12.8 12.7 Platelet Count 97 62 Mean Platelet Volume 8.1 7.8 Neutrophils (%) (Auto) Lymphocytes (%) (Auto) Monocytes (%) (Auto) Eosinophils (%) (Auto) Basophils (%) (Auto) Neutrophils # (Auto) Lymphocytes # (Auto) Monocytes # (Auto) Eosinophils # (Auto) Basophils # (Auto) CBC Comment AUTO DIFF AUTO DIFF Differential Total Cells 100 100 Counted Neutrophils % (Manual) 16 19 Lymphocytes % 79 78 Monocytes % 4 2 Eosinophils % 1 1 Neutrophils # (Manual) 0.2 0.2 Differential Comment FINAL DIFF FINAL DIFF MANUAL MANUAL Platelet Estimate LOW LOW Platelet Morphology Comment NORMAL NORMAL Prothrombin Time 10.5 Prothromb Time International 1.0 Ratio Activated Partial 23.9 Thromboplast Time Sodium Level 122 129 Potassium Level 4.1 4.0 Chloride Level 91 98 Carbon Dioxide Level 21.4 24.1 Anion Gap 10 7 Blood Urea Nitrogen 7 8 Creatinine 0.50 0.50 Estimat Glomerular Filtration 120 120 Rate Random Glucose 80 89 Serum Osmolality 252 Calcium Level 8.6 8.4 Magnesium Level 1.5 Total Bilirubin 0.5 0.4 Aspartate Amino Transf 18 11 (AST/SGOT) Alanine Aminotransferase 22 18 (ALT/SGPT) Alkaline Phosphatase 68 60 Total Creatine Kinase 58 Troponin I LESS THAN 0.02 Total Protein 6.6 5.8 Albumin 3.1 2.6 Urine Color YELLOW Urine Turbidity CLEAR Urine pH 7.0 Urine Specific [place] 1.010 Urine Protein TRACE Urine Glucose (UA) NEG Urine Ketones NEG Urine Occult Blood NEG Urine Nitrite NEG Urine Bilirubin NEG Urine Urobilinogen LESS THAN 2.0 Urine Leukocyte Esterase MOD Urine RBC 1 Urine WBC 7 Urine Squamous Epithelial 3 Cells Urine Transitional Epithelial <1 Cells Urine Bacteria OCC Urine Hyaline Casts 1 Urine Mucus FEW Urine Yeast (Budding) RARE Microscopic Urinalysis Comment CULT NOT INDICATED Urine Osmolality 309 Urine Random Sodium 52 Red Cell Morphology Comment NORMAL 25-Hydroxy Vitamin D Total 29.4 Free Thyroxine 1.33 Thyroid Stimulating Hormone 1.410 3rd Gen Date/Time Procedure Status Source Growth 12/24/16 11:42 Urine Culture Received Urine Clean Catch Pending Result Diagram: 12/25/16 0150 12/25/16 0150 Imaging Last [address] 12/24/16 1101 Signed Impressions: Service Date/Time: December 12:15 - CONCLUSION: Right parietal cephalhematoma. No evidence of acute intracranial trauma. No evidence of acute infarct, hemorrhage, mass or edema. Norberto Harry MD Chest X-Ray 12/24/16 1101 Signed Impressions: Service Date/Time: , December 24, 2016 11:55 - CONCLUSION: COPD with diffuse interstitial fibrotic appearing disease. No evidence of significant consolidation or suspicious mass densities. Norberto Harry MD Cervical Spine X-Ray 12/24/16 0000 Signed Impressions: Service Date/Time: December 11:59 - CONCLUSION: 1. Degenerative arthritic changes. No acute cervical fracture. 2. Incidental note is made of an age indeterminate compression fracture in the upper/mid thoracic spine Roldan Goldstein MD Assessment and Plan Problem List: (1) Hyponatremia Status: Acute Plan: Sodium 129 this AM up from 122. 3 % hypertonic saline running managed per nephrology and oncology. 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 fluid restriction ordered. (2) Neutropenia Status: Acute Plan: WBC 0.[address] Sneed at bedside this AM. Neupogen planned. (3) Syncope Status: Acute Plan: Patient with hematoma on back of head. PT ordered for today. (4) Urinary tract infection Status: Acute Plan: Rocephin discontinue. Patient is asymptomatic and no culture indicated (5) Anemia Status: Acute Plan: Will monitor Assessment and Plan Assessment and plan discussed with Dr. Doe. Discussed Condition With Nursing Discharge Planning Home with [facility] Physician Attestation I and the JOURNEYMAN PAINTER have both examined this patient and reviewed this note and I agree with these findings and plan of care. Kelechi Doe DO Problem Qualifiers (1) Syncope: Qualified Code: R55 - Syncope, unspecified syncope type (2) Urinary tract infection: Cheryl Parra Dec 25, 2016 07:59
[2016-12-25 08:00] VITALS: BP_SYST 103; BP_SYST 84; BP_SYST 91; BP_DIAS 48; BP_DIAS 50; BP_DIAS 56; PULSE 74; RESP 18; TEMP 98.6; O2SAT 96
[2016-12-25 09:00] VITALS: PULSE 77
[2016-12-25] MEDS: DOCUSATE SODIUM 50 MG/SENNA 8.6 MG TAB PO SCH ×2 (09:00→19:57)
[2016-12-25] MEDS: SODIUM CHLORIDE 0.9% FLUSH 10 ML FLUSH IV FLUSH SCH ×2 (09:05→19:57)
[2016-12-25] MEDS: FAMOTIDINE 20 MG TAB PO SCH ×2 (09:06→19:57)
[2016-12-25] MEDS: CHOLECALCIFEROL (VIT D3) 1000 UNIT TAB PO SCH (09:06)
[2016-12-25 11:37] VITALS: BP 101/53; PULSE 72; RESP 16; TEMP 97.9; O2SAT 97
[2016-12-25] MEDS: ACETAMINOPHEN/HYDROcodone 325 MG/5 MG TAB PO PRN ×2 (12:48→19:57)
[2016-12-25] MEDS: DEXT 5%-NACL 0.45% 1000 ML INJ 1,000 ML IV SCH (12:51)
[2016-12-25] MEDS: FILGRASTIM 480 MCG/1.6 ML VIAL SQ SCH (14:50)
[2016-12-25] MEDS ORDERED: cefTRIAXone INJ 1,000 MG in SODIUM CHLORIDE 0.9% INJ 100 ML IV SCH (15:00)
[2016-12-25] MEDS ORDERED: DEMECLOCYCLINE HCL 150 MG TAB PO SCH (15:00)
[2016-12-25 15:59] VITALS: BP 116/56; PULSE 68; RESP 20; TEMP 96.7; O2SAT 93
--- NOTE | 2016-12-25 17:19 | MB ---
cc: SHORTY ROWLEY M.D. DATE OF CONSULTATION: 12/25/2016. REASON FOR CONSULTATION: Consult requested by Dr. Doe for evaluation of a small cell lung cancer. HISTORY OF PRESENT ILLNESS: Nemo is a 76-year-old female. She was recently referred to me for evaluation of small cell lung cancer. She was originally diagnosed with small-cell lung cancer limited stage in September of this year when at [facility]. She was started on radiation therapy by Dr. Mcwilliams on November 09. The plan was to add chemotherapy as well by the oncologist Dr. Garrison at [facility]. The patient was only able to get five radiation treatments but no chemotherapy. She had a transportation problem. She lives by herself. She moved to the [facility] area to stay with her niece. I saw her on December 09 and gave her chemotherapy with carboplatin and etoposide on December 14. She also saw Dr. Bolden, who is planning to start radiation therapy soon. The patient had developed syncopal episodes and she fell. She was brought into the emergency room. She was found to have a scalp hematoma. 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 She is still in the emergency room where I am seeing her. The patient was also found to have neutropenia which is due to the chemotherapy but she does not have any fevers. She is overall feeling better. Nephrology was consulted. They have started her on 3% hypertonic saline. Her sodium has improved today to 129. The patient was unable to take full salt tablets and she has been breaking them in half and was taking it six times a day. The rest of the review of systems is negative. PAST MEDICAL HISTORY: 1. Compression fracture of the thoracic and lumbar spine. 2. COPD. 3. Hypothyroidism. 4. Limited stage small cell lung cancer. PAST SURGICAL HISTORY: 1. Cataract. 2. Infusaport placement. 3. Benign tumor was removed from the clavicle. 4. Right paratracheal mass aspiration. ALLERGIES: SHELLFISH. MEDICATIONS: 1. Lortab. 2. Levothyroxine. 3. Sodium chloride. 4. Vitamin D. FAMILY HISTORY: Mother of old age. Father from colon cancer at the age of 59. The patient does not have any children. SOCIAL HISTORY: She is legally . She used to smoke cigarettes one pack a day for 50 years and recently stopped smoking. The patient drinks alcohol. PHYSICAL EXAMINATION: GENERAL: This is a well-developed, well-nourished white female in no apparent distress. VITAL SIGNS: Temperature 98.6, heart rate is 103/56, oxygen saturation 97% on room air. HEAD, EYES, EARS, NOSE, THROAT: Pupils equal, round and reactive to light and accommodation. Extraocular muscles intact. Anicteric. No oral lesions are noted. NECK: The neck is supple. LYMPHATIC: There is no cervical, supraclavicular, axillary lymphadenopathy noted. LUNGS: Clear. No wheezes, rales or rhonchi. HEART: Regular rate and rhythm. ABDOMEN: Abdomen soft and nontender. No hepatosplenomegaly. EXTREMITIES: No pedal edema. NEUROLOGIC: Awake, alert, oriented x3. SKIN: No significant lesions noted. ASSESSMENT: 1. Small cell lung cancer limited stage status post one cycle of carboplatin and etoposide chemotherapy on December 14. 2. 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 3. Syncopal episode, probably related to severe hyponatremia. PLAN: I have reviewed her available records and I have discussed with the patient regarding further treatment for her lung cancer. She just had received her first cycle of carboplatin and etoposide chemotherapy last week. Her CBC showed that the white count is 0.9, hemoglobin 8.9, hematocrit 25.4, platelet count is 62,000, absolute neutrophil count is only 200. The patient does not have any fever. RECOMMENDATIONS: 1. My recommendation is to start Neupogen 480 micrograms daily. 2. If the patient develops fever, then she needs to be started on antibiotic and consult infectious disease. 3. Her sodium is improving. Nephrology has been consulted. She is on 3% hypertonic saline and her sodium yesterday was 122 and today is 129. Further recommendations based on the hospital stay. I have discussed the case with Dr. Doe's nurse practitioner in the emergency room. I have also discussed the case with the patient's nurse in the emergency room. The patient is waiting for a bed to be opened up for the patient to be transferred there. Thank you for asking my opinion. Dariusz Rowley MD /KIERAN /2:02 PM /5:10 PM JENNIFER
[2016-12-25 20:00] VITALS: BP_SYST 128; BP_SYST 129; BP_SYST 61; BP_SYST 97; BP_DIAS 53; BP_DIAS 61; PULSE 70; PULSE 78; RESP 16; TEMP 97.3; O2SAT 95; O2SAT 98; O2SAT 99
--- NOTE | 2016-12-25 22:57 | EKG ---
Date Performed: 12/24/2016 Time Performed: 11:16:52 PTAGE: 76 years EKG: Sinus rhythm NORMAL ECG NO PREVIOUS TRACING DOCTOR: Leann Roland Interpretating Date/Time 12/25/2016 22:56:16
[2016-12-26] VITALS (7 sets, daily range): BP systolic 101–138; BP diastolic 52–65; PULSE 68–90; RESP 16–18; TEMP 96.8–98.7; O2SAT 95–98
[2016-12-26] MEDS: DEMECLOCYCLINE HCL 150 MG TAB PO SCH ×3 (00:24→21:16)
[2016-12-26] MEDS: DEXT 5%-NACL 0.45% 1000 ML INJ 1,000 ML IV SCH (00:26)
[2016-12-26 04:39] LABS: BASOPHIL % 0.3 % (0.0-2.0); EOSINOPHIL % 1.2 % (0.0-4.0); HEMATOCRIT 24.9 % (35.0-46.0); LYMPH % 77.7 % (9.0-44.0); LYMPHOCYTE # 0.9 TH/MM3 (1.0-4.8); MEAN CELL VOLUME 81.1 FL (80.0-100.0); MEAN CORPUSCULAR HEMOGLOBIN 28.5 PG (27.0-34.0); MEAN CORPUSCULAR HGB CONC 35.2 % (32.0-36.0); MONO % 5.8 % (0.0-8.0); PLATELET COUNT 44 TH/MM3 (150-450); RED BLOOD COUNT 3.08 MIL/MM3 (4.00-5.30); RED CELL DISTRIBUTION WIDTH 12.7 % (11.6-17.2); WHITE BLOOD COUNT 1.2 TH/MM3 (4.0-11.0)
[2016-12-26 04:52] LABS: HEMO FLAGS AUTO DIFF
[2016-12-26 04:54] LABS: AUTOMATED NEUTROPHIL # 0.2 TH/MM3 (1.8-7.7)
[2016-12-26 04:56] LABS: BICARBONATE 25.4 MEQ/L (21.0-32.0); POTASSIUM 3.8 MEQ/L (3.5-5.1)
[2016-12-26] MEDS: LEVOTHYROXINE SODIUM 50 MCG TAB PO SCH (06:24)
[2016-12-26 08:20] LABS: NEUTROPHIL # MANUAL DIFF 0.2 TH/MM3 (1.8-7.7)
[2016-12-26 08:21] LABS: PLATELET ESTIMATE SMEAR LOW (NORMAL); POLYS (SEG NEUTROPHILS) 14 % (16-70); WBC DIFF SAMPLE 50
[2016-12-26 08:22] LABS: PLATELET MORPHOLOGY NORMAL (NORMAL); SCAN/DIFF FINAL DIFF MANUAL
[2016-12-26] MEDS: CHOLECALCIFEROL (VIT D3) 1000 UNIT TAB PO SCH (08:38)
[2016-12-26] MEDS: SODIUM CHLORIDE 0.9% FLUSH 10 ML FLUSH IV FLUSH SCH ×2 (08:38→21:19)
[2016-12-26] MEDS: FAMOTIDINE 20 MG TAB PO SCH ×2 (08:38→21:16)
[2016-12-26] MEDS: DOCUSATE SODIUM 50 MG/SENNA 8.6 MG TAB PO SCH ×2 (08:38→21:00)
--- NOTE | 2016-12-26 09:18 | HHI.NPPN ---
Subjective Interval History Hyponatremia due to SIADH. Serum Na is 128. Review of Systems General Constitutional: Fatigue Objective Data Data 12/25/16 12/26/16 19:00 07:00 Intake Total 560 ml 240 ml Balance 560 ml 240 ml Intake Oral 560 ml 240 ml # Voids 6 Vital Signs Date Time Temp Pulse Resp B/P Pulse Ox O2 Delivery O2 Flow Rate FiO2 12/26/16 08:00 97.5 72 18 102/54 95 12/26/16 04:00 90 18 111/59 98 12/26/16 04:00 83 18 117/65 95 12/26/16 04:00 97.2 74 16 124/63 95 12/26/16 00:09 68 12/26/16 00:00 78 18 138/60 97 12/26/16 00:00 85 18 106/58 97 12/26/16 00:00 96.8 77 18 138/61 96 12/25/16 21:25 16 12/25/16 20:00 97.3 70 16 128/61 99 12/25/16 20:00 78 16 97/53 95 12/25/16 20:00 78 16 129/61 98 12/25/16 15:59 96.7 68 20 116/56 93 12/25/16 11:37 97.9 72 16 101/53 97 -: 12/26/16 0230 12/26/16 0230 Microbiology 12/25/16 Aerobic Blood Culture, Received Pending 12/25/16 Anaerobic Blood Culture, Received Pending 12/25/16 Aerobic Blood Culture, Received Pending 12/25/16 Anaerobic Blood Culture, Received Pending Assessment/Plan Problem List: (1) Hyponatremia Plan: Likely due to SIADH. I noticed that she is on Demeclocycline. Oral fluid restriction. Treat underlying cancer. (2) Closed head injury (3) Neutropenia Plan: She received the carboplatin and Etoposide Continue to monitor (4) Syncope Plan: Likely due to hyponatremia (5) Urinary tract infection Plan: She was placed on ceftriaxone Problem Qualifiers (1) Closed head injury: Qualified Code: S09.90XA - Closed head injury, initial encounter (2) Syncope: Qualified Code: R55 - Syncope, unspecified syncope type (3) Urinary tract infection: Michael Jacinto MD Dec 26, 2016 09:18
--- NOTE | 2016-12-26 11:16 | HHI.PR ---
Subjective Remarks pt remains weak didhave BM yesterday Objective Vital Signs Date Time Temp Pulse Resp B/P Pulse Ox O2 Delivery O2 Flow Rate FiO2 12/26/16 08:00 97.5 72 18 102/54 95 12/26/16 04:00 90 18 111/59 98 12/26/16 04:00 83 18 117/65 95 12/26/16 04:00 97.2 74 16 124/63 95 12/26/16 00:09 68 12/26/16 00:00 78 18 138/60 97 12/26/16 00:00 85 18 106/58 97 12/26/16 00:00 96.8 77 18 138/61 96 12/25/16 21:25 16 12/25/16 20:00 97.3 70 16 128/61 99 12/25/16 20:00 78 16 97/53 95 12/25/16 20:00 78 16 129/61 98 12/25/16 15:59 96.7 68 20 116/56 93 12/25/16 11:37 97.9 72 16 101/53 97 I/O 12/25/16 12/25/16 12/25/16 12/26/16 12/26/16 12/26/16 07:00 15:00 23:00 07:00 15:00 23:00 Intake Total 560 ml 240 ml Balance 560 ml 240 ml Intake Oral 560 ml 240 ml # Voids 3 3 Result Diagram: 12/26/16 0230 12/26/16 0230 Imaging Last [address] 12/24/16 1101 Signed Impressions: Service Date/Time: December 12:15 - CONCLUSION: Right parietal cephalhematoma. No evidence of acute intracranial trauma. No evidence of acute infarct, hemorrhage, mass or edema. 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 No evidence of significant consolidation or suspicious mass densities. Norberto Harry MD Cervical Spine X-Ray 12/24/16 0000 Signed Impressions: Service Date/Time: December 11:59 - CONCLUSION: 1. Degenerative arthritic changes. No acute cervical fracture. 2. Incidental note is made of an age indeterminate compression fracture in the upper/mid thoracic spine Roldan Goldstein MD Objective Remarks GENERAL: SKIN: Warm and dry. HEAD: Atraumatic. Normocephalic. EYES: Pupils equal and round. No scleral icterus. No injection or drainage. ENT: No nasal bleeding or discharge. Mucous membranes pink and moist. NECK: Trachea midline. No JVD. CARDIOVASCULAR: Regular rate and rhythm. RESPIRATORY: No accessory muscle use. Clear to auscultation. Breath sounds equal bilaterally. GASTROINTESTINAL: Abdomen soft, non-tender, nondistended. Hepatic and splenic margins not palpable. MUSCULOSKELETAL: Extremities without clubbing, cyanosis, or edema. No obvious deformities. NEUROLOGICAL: Awake and alert. No obvious cranial nerve deficits. generalized weakness present Normal speech. PSYCHIATRIC: Appropriate mood and affect; insight and judgment normal. Medications and IVs Inpatient Medications Acetaminophen (Tylenol) 650 mg Q4H PRN PO TEMP > 100.4 Last administered on 22:58; Start 12/24/16 at 14:45 Acetaminophen/ Hydrocodone Bitart 1 tab 1 tab Q4H PRN PO PAIN SCALE 5 TO 10 Last administered on 12/25/16 19:57; Start 12/25/16 at 12:00 Albuterol/ Ipratropium 1 ampule 1 ampule Q6HR NEB PRN NEB SHORTNESS OF BREATH; Start 12/24/16 at 14:45 Bisacodyl (Dulcolax Supp) 10 mg DAILY PRN RECTAL SEVERE CONSITIPATION; Start at 14:45 Ceftriaxone Sodium 1000 mg/ Sodium Chloride 100 ml @ 200 mls/hr ONCE ONCE IV Last administered on 12/24/16 14:06; Start 12/24/16 at 13:45; Stop 12/24/16 at 14:14; Status DC Ceftriaxone Sodium/Sodium Chloride (Rocephin Inj/NS Inj) 100 ml @ 200 mls/hr Q24H IV ; Start 12/25/16 at 15:00; Stop 12/25/16 at 15:00; Status DC Cholecalciferol (Vitamin D3) 1,000 units DAILY PO Last administered on 08:38; Start 12/25/16 at 09:00 Demeclocycline HCl (Declomycin) 300 mg Q12HR PO Last administered on 12/26/16 08:38; Start 12/26/16 at 00:25 Dextrose/Sodium Chloride (D5W-1/2 NS 1000 ml Inj) 1,000 ml @ 75 mls/hr [id number] IV Last administered on 12/25/16 12:51; Start 12/25/16 at 12:45 Famotidine (Pepcid) 20 mg BID PO Last administered on 12/26/16 08:38; Start at 09:00 Filgrastim (Neupogen Inj) 480 mcg DAILY@14 SQ Last administered on 12/25/16 14 :50; Start 12/25/16 at 14:00 Lactulose 30 ml 30 ml DAILY PRN PO SEVERE CONSITIPATION; Start 12/24/16 at 14: 45 Levothyroxine Sodium (Synthroid) 50 mcg DAILY@06 PO Last administered on 06:24; Start 12/25/16 at 06:00 Magnesium Hydroxide (Milk Of Magnpeter Liq) 30 ml Q12H PRN PO MILD - MODERATE CONSTIPATION; Start 12/24/16 at 14:45 Naloxone HCl (Narcan Inj) 0.4 mg UNSCH PRN IV SEE LABEL COMMENTS; Start at 14:45 Ondansetron HCl (Zofran Inj) 4 mg Q6H PRN IVP NAUSEA OR VOMITING; Start at 14:45 Senna/Docusate Sodium (Meryl-Colace) 1 tab BID PO Last administered on 08:38; Start 12/24/16 at 21:00 Sennosides (Senokot) 17.2 mg Q12H PRN PO MODERATE - SEVERE CONSTIPATION; Start 12/24/16 at 14:45 Sodium Chloride (NS 1000 ml Inj) 1,000 ml @ 100 mls/hr Q10H IV Last administered on 12/24/16 15:00; Start 12/24/16 at 15:00; Stop 12/24/16 at 18:20 ; Status DC Sodium Chloride (NS Flush) 2 ml BID IV FLUSH Last administered on 12/25/16 09: 05; Start 12/24/16 at 21:00 Sodium Chloride (Sodium Chloride 3% Inj) 500 ml @ 10 mls/hr ONCE ONCE IV Last administered on 12/24/16 15:59; Start 12/24/16 at 15:15; Stop 12/26/16 at 17:14 Sodium Chloride 2 ml 2 ml UNSCH PRN IVF FLUSH AFTER USING IV ACCESS; Start at 11:15; Stop 12/24/16 at 14:55; Status DC Vancomycin HCl 1000 mg/Sodium Chloride 250 ml @ 250 mls/hr ONCE ONCE IV Last administered on 12/24/16 14:50; Start 12/24/16 at 14:30; Stop 12/24/16 at 15:29 ; Status DC Assessment and Plan Problem List: (1) Anemia Status: Acute Plan: heme onc following will probably start procrit (2) Hyponatremia Status: Acute Plan: dc iv fluids follow lytes Discussed Condition With patient rehab post hospital recomended pt consulted Kelechi Doe DO Dec 26, 2016 11:16
--- NOTE | 2016-12-26 15:11 | PD.ONC.PN ---
Subjective Subjective Remarks Afebrile overnight Upset that people keep coming in her room. "How am I supposed to get any rest?" Denies SOB or chest pain. C/o occasional back pain which is chronic. Objective Data Date Time Temp Pulse Resp B/P Pulse Ox O2 Delivery O2 Flow Rate FiO2 12/26/16 12:00 98.7 77 18 104/52 97 12/26/16 08:00 97.5 72 18 102/54 95 12/26/16 04:00 90 18 111/59 98 12/26/16 04:00 83 18 117/65 95 12/26/16 04:00 97.2 74 16 124/63 95 12/26/16 00:09 68 12/26/16 00:00 78 18 138/60 97 12/26/16 00:00 85 18 106/58 97 12/26/16 00:00 96.8 77 18 138/61 96 12/25/16 21:25 16 12/25/16 20:00 97.3 70 16 128/61 99 12/25/16 20:00 78 16 97/53 95 12/25/16 20:00 78 16 129/61 98 12/25/16 15:59 96.7 68 20 116/56 93 Result Diagram: 12/26/16 0230 12/26/16 0230 Laboratory Results Laboratory Tests Test 12/26/16 02:30 White Blood Count 1.2 TH/MM3 Red Blood Count 3.08 MIL/MM3 Hemoglobin 8.8 GM/DL Hematocrit 24.9 % Mean Corpuscular Volume 81.1 FL Mean Corpuscular Hemoglobin 28.5 PG Mean Corpuscular Hemoglobin 35.2 % Concent Red Cell Distribution Width 12.7 % Platelet Count 44 TH/MM3 Mean Platelet Volume 8.1 FL Neutrophils (%) (Auto) 15.0 % Lymphocytes (%) (Auto) 77.7 % Monocytes (%) (Auto) 5.8 % Eosinophils (%) (Auto) 1.2 % Basophils (%) (Auto) 0.3 % Neutrophils # (Auto) 0.2 TH/MM3 Lymphocytes # (Auto) 0.9 TH/MM3 Monocytes # (Auto) 0.1 TH/MM3 Eosinophils # (Auto) 0.0 TH/MM3 Basophils # (Auto) 0.0 TH/MM3 CBC Comment AUTO DIFF Differential Total Cells 50 Counted Neutrophils % (Manual) 14 % Lymphocytes % 80 % Monocytes % 6 % Neutrophils # (Manual) 0.2 TH/MM3 Differential Comment FINAL DIFF MANUAL Platelet Estimate LOW Platelet Morphology Comment NORMAL Sodium Level 128 MEQ/L Potassium Level 3.8 MEQ/L Chloride Level 94 MEQ/L Carbon Dioxide Level 25.4 MEQ/L Anion Gap 9 MEQ/L Blood Urea Nitrogen 9 MG/DL Creatinine 0.44 MG/DL Estimat Glomerular Filtration 139 ML/MIN Rate Random Glucose 84 MG/DL Calcium Level 8.3 MG/DL Culture Results Microbiology Date/Time Procedure Status Source Growth 12/24/16 11:42 Urine Culture - Final Complete Urine Clean Catch 50-100,000 CFU/ML MIXED GRAM POSITIVE... 12/25/16 13:20 Aerobic Blood Culture - Preliminary Resulted Blood Other NO GROWTH IN 1 DAY 12/25/16 13:20 Anaerobic Blood Culture - Preliminary Resulted Blood Other NO GROWTH IN 1 DAY 12/25/16 13:25 Aerobic Blood Culture - Preliminary Resulted Blood Other NO GROWTH IN 1 DAY 12/25/16 13:25 Anaerobic Blood Culture - Preliminary Resulted Blood Other NO GROWTH IN 1 DAY Administered Medications Medications (Trade) Dose Ordered Sig/[place] Route PRN Reason Start Time Stop Time Status Last Admin Dose Admin Sodium Chloride (NS Flush) 2 ml BID IV FLUSH 12/24/16 21:00 12/25/16 09:05 Acetaminophen (Tylenol) 650 mg Q4H PRN PO TEMP > 100.4 12/24/16 14:45 12/24/16 22:58 Senna/Docusate Sodium (Meryl-Colace) 1 tab BID PO 12/24/16 21:00 12/26/16 08:38 Cholecalciferol (Vitamin D3) 1,000 units DAILY PO 12/25/16 09:00 12/26/16 08:38 Levothyroxine Sodium 50 mcg 50 mcg DAILY@06 PO 12/25/16 06:00 12/26/16 06:24 Sodium Chloride (Sodium Chloride 3% Inj) 500 ml @ 10 mls/hr ONCE ONCE IV 12/24/16 15:15 12/26/16 17:14 12/24/16 15:59 Famotidine (Pepcid) 20 mg BID PO 12/25/16 09:00 12/26/16 08:38 Acetaminophen/ Hydrocodone Bitart ([place] 5-325 Mg) 1 tab Q4H PRN PO PAIN SCALE 5 TO 10 12/25/16 12:00 12/25/16 19:57 Filgrastim (Neupogen Inj) 480 mcg DAILY@14 SQ 12/25/16 14:00 12/25/16 14:50 Demeclocycline HCl (Declomycin) 300 mg Q12HR PO 12/26/16 00:25 12/26/16 08:38 Objective Remarks GENERAL: Disheveled appearing older female, lying in bed in no distress. SKIN: Warm and dry. HEAD: Normocephalic. EYES: No injection or drainage. NECK: Supple, trachea midline. CARDIOVASCULAR: +S1/S2. RESPIRATORY: Diminished anteriorly. Breathing unlabored. GASTROINTESTINAL: Abdomen soft, non-tender, nondistended. EXTREMITIES: No cyanosis, or edema. NEUROLOGICAL: No obvious focal deficit. Awake, alert, and oriented x3. Assessment/Plan Assessment 76 y/o female with SCLC admitted with hyponatremia and neutropenia. Plan 1. Continue Neupogen until ANC greater than 2500. 2. Sodium overall improving. 3. Received demeclocycline. 4.Cytopenias d/t recent chemotherapy. Attending Statement The exam, history, and the medical decision-making described in the above note were completed with the assistance of the mid-level provider. I reviewed and agree with the findings presented. I attest that I had a [id number] encounter with the patient on the same day, and personally performed and documented my assessment and findings in the medical record. patient doing well and would like to go home. She drank large quantities of free water before hospitalization which may account for low Na as if small cell caner controlled she should not have this paraneoplastic syndrome. continue fluid restriction and Neupogen,. Latanya Amos Dec 26, 2016 15:11 Cortez Lima MD Dec 26, 2016 17:31
[2016-12-26] MEDS: FILGRASTIM 480 MCG/1.6 ML VIAL SQ SCH (16:00)
[2016-12-26 16:44] LABS: BICARBONATE 26.1 MEQ/L (21.0-32.0); POTASSIUM 3.9 MEQ/L (3.5-5.1)
[2016-12-26] MEDS: ACETAMINOPHEN/HYDROcodone 325 MG/5 MG TAB PO PRN (21:18)
[2016-12-27] VITALS (7 sets, daily range): BP systolic 81–113; BP diastolic 51–57; PULSE 67–73; RESP 16–20; TEMP 97.1–98.1; O2SAT 96–98
[2016-12-27] MEDS: LEVOTHYROXINE SODIUM 50 MCG TAB PO SCH (05:35)
[2016-12-27 06:10] LABS: AUTOMATED NEUTROPHIL # 0.1 TH/MM3 (1.8-7.7); BASOPHIL % 0.2 % (0.0-2.0); EOSINOPHIL % 1.2 % (0.0-4.0); HEMATOCRIT 24.2 % (35.0-46.0); LYMPH % 74.8 % (9.0-44.0); LYMPHOCYTE # 0.9 TH/MM3 (1.0-4.8); MEAN CELL VOLUME 80.6 FL (80.0-100.0); MEAN CORPUSCULAR HEMOGLOBIN 28.6 PG (27.0-34.0); MEAN CORPUSCULAR HGB CONC 35.5 % (32.0-36.0); MONO % 16.1 % (0.0-8.0); NEUT % 7.7 % (16.0-70.0); PLATELET COUNT 26 TH/MM3 (150-450); RED BLOOD COUNT 3.01 MIL/MM3 (4.00-5.30); RED CELL DISTRIBUTION WIDTH 12.7 % (11.6-17.2); WHITE BLOOD COUNT 1.2 TH/MM3 (4.0-11.0)
[2016-12-27 06:25] LABS: HEMO FLAGS AUTO DIFF
[2016-12-27 07:22] LABS: BANDS 1 % (0-6); EOSINOPHILS 2 % (0-4); NEUTROPHIL # MANUAL DIFF 0.1 TH/MM3 (1.8-7.7); POLYS (SEG NEUTROPHILS) 8 % (16-70); WBC DIFF SAMPLE 100
[2016-12-27 07:23] LABS: PLATELET ESTIMATE SMEAR LOW (NORMAL); PLATELET MORPHOLOGY NORMAL (NORMAL); SCAN/DIFF FINAL DIFF MANUAL
[2016-12-27] MEDS: DEMECLOCYCLINE HCL 150 MG TAB PO SCH ×2 (09:00→21:59)
[2016-12-27] MEDS: CHOLECALCIFEROL (VIT D3) 1000 UNIT TAB PO SCH (09:00)
[2016-12-27] MEDS: FAMOTIDINE 20 MG TAB PO SCH ×2 (09:00→21:59)
[2016-12-27] MEDS: DOCUSATE SODIUM 50 MG/SENNA 8.6 MG TAB PO SCH ×2 (09:00→21:00)
[2016-12-27] MEDS: SODIUM CHLORIDE 0.9% FLUSH 10 ML FLUSH IV FLUSH SCH ×2 (09:00→21:00)
--- NOTE | 2016-12-27 09:07 | HHI.PR ---
Subjective Remarks pt remains weak states shes not up to discharge today wbc 1.2 na 129 Objective Vital Signs Date Time Temp Pulse Resp B/P Pulse Ox O2 Delivery O2 Flow Rate FiO2 12/27/16 07:50 97.1 71 20 113/57 96 12/27/16 05:00 97.3 67 17 91/52 96 12/27/16 00:00 97.4 70 17 110/51 96 12/26/16 22:15 18 12/26/16 20:00 97.5 82 18 101/52 97 12/26/16 16:00 96.8 77 18 107/54 95 12/26/16 12:00 98.7 77 18 104/52 97 I/O 12/26/16 12/26/16 12/26/16 12/27/16 12/27/16 12/27/16 07:00 15:00 23:00 07:00 15:00 23:00 Intake Total 1200 ml 240 ml Balance 1200 ml 240 ml Intake Oral 1200 ml 240 ml # Voids 3 6 3 2 # Bowel Movements 1 Result Diagram: 12/27/16 0532 12/26/16 1601 Objective Remarks GENERAL: SKIN: Warm and dry. HEAD: Atraumatic. Normocephalic. EYES: Pupils equal and round. No scleral icterus. No injection or drainage. ENT: No nasal bleeding or discharge. Mucous membranes pink and moist. NECK: Trachea midline. No JVD. CARDIOVASCULAR: Regular rate and rhythm. RESPIRATORY: No accessory muscle use. Clear to auscultation. Breath sounds equal bilaterally. GASTROINTESTINAL: Abdomen soft, non-tender, nondistended. Hepatic and splenic margins not palpable. MUSCULOSKELETAL: Extremities without clubbing, cyanosis, or edema. No obvious deformities. NEUROLOGICAL: Awake and alert. No obvious cranial nerve deficits. generalized weakness present Normal speech. PSYCHIATRIC: Appropriate mood and affect; insight and judgment normal. Medications and IVs Inpatient Medications Acetaminophen (Tylenol) 650 mg Q4H PRN PO TEMP > 100.4 Last administered on 22:58; Start 12/24/16 at 14:45 Acetaminophen/ Hydrocodone Bitart 1 tab 1 tab Q4H PRN PO PAIN SCALE 5 TO 10 Last administered on 12/26/16 21:18; Start 12/25/16 at 12:00 Albuterol/ Ipratropium 1 ampule 1 ampule Q6HR NEB PRN NEB SHORTNESS OF BREATH; Start 12/24/16 at 14:45 Bisacodyl (Dulcolax Supp) 10 mg DAILY PRN RECTAL SEVERE CONSITIPATION; Start at 14:45 Ceftriaxone Sodium 1000 mg/ Sodium Chloride 100 ml @ 200 mls/hr ONCE ONCE IV Last administered on 12/24/16 14:06; Start 12/24/16 at 13:45; Stop 12/24/16 at 14:14; Status DC Ceftriaxone Sodium/Sodium Chloride (Rocephin Inj/NS Inj) 100 ml @ 200 mls/hr Q24H IV ; Start 12/25/16 at 15:00; Stop 12/25/16 at 15:00; Status DC Cholecalciferol (Vitamin D3) 1,000 units DAILY PO Last administered on 08:38; Start 12/25/16 at 09:00 Demeclocycline HCl (Declomycin) 300 mg Q12HR PO Last administered on 12/26/16 21:16; Start 12/26/16 at 00:25 Dextrose/Sodium Chloride (D5W-1/2 NS 1000 ml Inj) 1,000 ml @ 75 mls/hr [id number] IV Last administered on 12/25/16 12:51; Start 12/25/16 at 12:45; Stop at 11:19; Status DC Famotidine (Pepcid) 20 mg BID PO Last administered on 12/26/16 21:16; Start at 09:00 Filgrastim (Neupogen Inj) 480 mcg DAILY@14 SQ Last administered on 12/26/16 16 :00; Start 12/25/16 at 14:00 Lactulose 30 ml 30 ml DAILY PRN PO SEVERE CONSITIPATION; Start 12/24/16 at 14: 45 Levothyroxine Sodium (Synthroid) 50 mcg DAILY@06 PO Last administered on 05:35; Start 12/25/16 at 06:00 Magnesium Hydroxide (Milk Of Magnesia Liq) 30 ml Q12H PRN PO MILD - MODERATE CONSTIPATION; Start 12/24/16 at 14:45 Naloxone HCl (Narcan Inj) 0.4 mg UNSCH PRN IV SEE LABEL COMMENTS; Start at 14:45 Ondansetron HCl (Zofran Inj) 4 mg Q6H PRN IVP NAUSEA OR VOMITING; Start at 14:45 Senna/Docusate Sodium (Meryl-Colace) 1 tab BID PO Last administered on 08:38; Start 12/24/16 at 21:00 Sennosides (Senokot) 17.2 mg Q12H PRN PO MODERATE - SEVERE CONSTIPATION; Start 12/24/16 at 14:45 Sodium Chloride (NS 1000 ml Inj) 1,000 ml @ 100 mls/hr Q10H IV Last administered on 12/24/16 15:00; Start 12/24/16 at 15:00; Stop 12/24/16 at 18:20 ; Status DC Sodium Chloride (NS Flush) 2 ml BID IV FLUSH Last administered on 12/26/16 21: 19; Start 12/24/16 at 21:00 Sodium Chloride (Sodium Chloride 3% Inj) 500 ml @ 10 mls/hr ONCE ONCE IV Last administered on 12/24/16 15:59; Start 12/24/16 at 15:15; Stop 12/26/16 at 17:14; Status DC Sodium Chloride 2 ml 2 ml UNSCH PRN IVF FLUSH AFTER USING IV ACCESS; Start at 11:15; Stop 12/24/16 at 14:55; Status DC Vancomycin HCl 1000 mg/Sodium Chloride 250 ml @ 250 mls/hr ONCE ONCE IV Last administered on 12/24/16 14:50; Start 12/24/16 at 14:30; Stop 12/24/16 at 15:29 ; Status DC Assessment and Plan Problem List: (1) Anemia Status: Acute Plan: heme onc following will probably start procrit (2) Hyponatremia Status: Acute Plan: dc iv fluids follow lytes will have pt ambulate today dc home in am if lab stable Kelechi Doe DO Dec 27, 2016 09:07
--- NOTE | 2016-12-27 09:09 | HHI.NPPN ---
Subjective Interval History Serum Na is stable. Off IVF. Review of Systems General Constitutional: Fatigue Objective Data Data 12/26/16 12/27/16 19:00 07:00 Intake Total 1200 ml 240 ml Balance 1200 ml 240 ml Intake Oral 1200 ml 240 ml # Voids 6 5 # Bowel Movements 1 Vital Signs Date Time Temp Pulse Resp B/P Pulse Ox O2 Delivery O2 Flow Rate FiO2 12/27/16 07:50 97.1 71 20 113/57 96 12/27/16 05:00 97.3 67 17 91/52 96 12/27/16 00:00 97.4 70 17 110/51 96 12/26/16 22:15 18 12/26/16 20:00 97.5 82 18 101/52 97 12/26/16 16:00 96.8 77 18 107/54 95 12/26/16 12:00 98.7 77 18 104/52 97 -: 12/27/16 0532 12/26/16 1601 Physical Exam General Appearance: No Acute Distress Throat Throat Exam: Oral Mucosa [place] & Moist Pulmonary Resp Exam: Clear Bilaterally Cardiology CV Exam: Regular, Normal Sinus Rhythm Gastrointestinal/Abdomen GI Exam: Soft, Non-Tender Musculoskeletal MS Exam: Joints Intact Extremeties Extremities Exam: No Edema Assessment/Plan Problem List: (1) Hyponatremia Plan: Likely due to SIADH. She is on Demeclocycline. [place] oral fluid restriction. Treat underlying cancer. (2) Closed head injury (3) Neutropenia Plan: She received the carboplatin and Etoposide Continue to monitor (4) Syncope Plan: Likely due to hyponatremia (5) Urinary tract infection Plan: She was placed on ceftriaxone Problem Qualifiers (1) Closed head injury: Qualified Code: S09.90XA - Closed head injury, initial encounter (2) Syncope: Qualified Code: R55 - Syncope, unspecified syncope type (3) Urinary tract infection: Michael Jacinto MD Dec 27, 2016 09:08
[2016-12-27] MEDS: FILGRASTIM 480 MCG/1.6 ML VIAL SQ SCH (13:10)
[2016-12-27 21:56] LABS: BLOOD, URINE MOD (NEG); GLUCOSE,URINE NEG (NEG); KETONE, URINE NEG (NEG); PH, URINE 8.5 (5.0-8.5); URINE COLOR YELLOW (YELLW/STRAW)
[2016-12-27 21:57] LABS: BACTERIA, URINE OCC /hpf; NITRITE,URINE NEG (NEG); RBC, URINE 0-3 /hpf (0-3); WBC, URINE 0-2 /hpf (0-5)
[2016-12-28] VITALS: BP_SYST 122; BP_SYST 126; BP_DIAS 68; BP_DIAS 76; PULSE 83; RESP 18; RESP 19; TEMP 97; O2SAT 97
[2016-12-28] MEDS: ACETAMINOPHEN/HYDROcodone 325 MG/5 MG TAB PO PRN ×3 (00:20→20:09)
[2016-12-28] MEDS: SODIUM CHLORIDE 0.9% FLUSH 10 ML FLUSH IV FLUSH PRN ×2 (04:46)
[2016-12-28 04:50] VITALS: BP 96/54; PULSE 72; RESP 17; TEMP 97.7; O2SAT 97
[2016-12-28] MEDS: LEVOTHYROXINE SODIUM 50 MCG TAB PO SCH (05:02)
[2016-12-28 05:39] LABS: BASOPHIL % 0.2 % (0.0-2.0); EOSINOPHIL % 1.4 % (0.0-4.0); HEMATOCRIT 24.7 % (35.0-46.0); LYMPH % 63.5 % (9.0-44.0); MEAN CELL VOLUME 79.8 FL (80.0-100.0); MEAN CORPUSCULAR HEMOGLOBIN 27.9 PG (27.0-34.0); MONO % 29.8 % (0.0-8.0); NEUT % 5.1 % (16.0-70.0); RED BLOOD COUNT 3.09 MIL/MM3 (4.00-5.30); RED CELL DISTRIBUTION WIDTH 12.5 % (11.6-17.2); WHITE BLOOD COUNT 1.6 TH/MM3 (4.0-11.0)
[2016-12-28 05:46] LABS: ALT (GPT) 18 U/L (10-53); ANION GAP 7 MEQ/L (5-15); AST (GOT) 10 U/L (15-37); BICARBONATE 27.1 MEQ/L (21.0-32.0); BLOOD UREA NITROGEN 8 MG/DL (7-18); CHLORIDE 93 MEQ/L (98-107); GLOMERULAR FILTRATION RATE 139 ML/MIN (>89); POTASSIUM 4.1 MEQ/L (3.5-5.1); SODIUM (NA) 127 MEQ/L (136-145)
[2016-12-28 05:48] LABS: ALKALINE PHOSPHATASE 65 U/L (45-117); TOTAL BILIRUBIN ADULT 0.4 MG/DL (0.2-1.0)
[2016-12-28 06:06] LABS: HEMO FLAGS AUTO DIFF
[2016-12-28 06:08] LABS: AUTOMATED NEUTROPHIL # 0.1 TH/MM3 (1.8-7.7); PLATELET COUNT 18 TH/MM3 (150-450)
[2016-12-28 07:08] LABS: BANDS 2 % (0-6); WBC DIFF SAMPLE 100
[2016-12-28 07:09] LABS: PLATELET ESTIMATE SMEAR RARE (NORMAL); PLATELET MORPHOLOGY NORMAL (NORMAL); SCAN/DIFF FINAL DIFF MANUAL
--- NOTE | 2016-12-28 07:35 | HHI.PR ---
Subjective Remarks Patient is wanting to go home. Denies any CP or SOB. Objective Vital Signs Date Time Temp Pulse Resp B/P Pulse Ox O2 Delivery O2 Flow Rate FiO2 12/28/16 04:50 97.7 72 17 96/54 97 12/28/16 00:00 97.0 83 19 126/76 97 Automatic Cuff 12/27/16 20:13 73 12/27/16 20:00 98.0 72 16 109/51 97 115/54 81/56 12/27/16 15:50 98.1 71 20 98/51 96 12/27/16 11:50 98.0 71 20 100/54 98 12/27/16 07:50 97.1 71 20 113/57 96 I/O 12/27/16 12/27/16 12/27/16 12/28/16 12/28/16 12/28/16 07:00 15:00 23:00 07:00 15:00 23:00 Intake Total 500 ml 120 ml 60 ml Balance 500 ml 120 ml 60 ml Intake Oral 500 ml 120 ml 60 ml # Voids 2 5 3 3 # Bowel Movements 0 0 0 Result Diagram: 12/28/16 0445 12/28/16 0445 Other Results GENERAL:Alert and cooperative SKIN: Warm and dry. HEAD: Normocephalic. EYES: No scleral icterus. No injection or drainage. NECK: Supple, trachea midline. No JVD or lymphadenopathy. CARDIOVASCULAR: Regular rate and rhythm without murmurs, gallops, or rubs. RESPIRATORY: Breath sounds equal bilaterally. No accessory muscle use. GASTROINTESTINAL: Abdomen soft, non-tender, nondistended. MUSCULOSKELETAL: No cyanosis, or edema. BACK: Nontender without obvious deformity. No CVA tenderness. Medications and IVs Current Medications Medications (Trade) Dose Ordered Sig/[place] Route Start Time Stop Time Status Last Admin (NS Flush) 2 ml UNSCH PRN IV FLUSH 12/24/16 14:45 12/28/16 04:46 (NS Flush) 2 ml BID IV FLUSH 12/24/16 21:00 12/27/16 09:00 (Tylenol) 650 mg Q4H PRN PO 12/24/16 14:45 12/24/16 22:58 (Zofran Inj) 4 mg Q6H PRN IVP 12/24/16 14:45 (Narcan Inj) 0.4 mg UNSCH PRN IV 12/24/16 14:45 (Meryl-Colace) 1 tab BID PO 12/24/16 21:00 12/26/16 08:38 (Milk Of Magnesia Liq) 30 ml Q12H PRN PO 12/24/16 14:45 (Senokot) 17.2 mg Q12H PRN PO 12/24/16 14:45 (Dulcolax Supp) 10 mg DAILY PRN RECTAL 12/24/16 14:45 (Lactulose Liq) 30 ml DAILY PRN PO 12/24/16 14:45 (Vitamin D3) 1,000 units DAILY PO 12/25/16 09:00 12/27/16 09:00 (Synthroid) 50 mcg DAILY@06 PO 12/25/16 06:00 12/28/16 05:02 (Pepcid) 20 mg BID PO 12/25/16 09:00 12/27/16 21:59 ([place] 5-325 Mg) 1 tab Q4H PRN PO 12/25/16 12:00 12/28/16 00:20 (Neupogen Inj) 480 mcg DAILY@14 SQ 12/25/16 14:00 12/27/16 13:10 (Declomycin) 300 mg Q12HR PO 12/26/16 00:25 12/27/16 21:59 (Heparin Central Flush) 250 units UNSCH PRN IV FLUSH 12/28/16 04:15 12/28/16 04:51 (Heparin Central Flush) 500 units UNSCH IV FLUSH 12/28/16 04:15 (NS Flush) 5 ml UNSCH PRN IV FLUSH 12/28/16 04:15 12/28/16 04:46 Assessment and Plan Problem List: (1) Hyponatremia Status: Acute Plan: Sodium 127 down from 129. On demeclocycline and sodium tablets added today. 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 fluid restriction ordered. (2) Neutropenia Status: Acute Plan: WBC 1.6 this AM. Neupogen ordered per oncology. (3) Syncope Status: Acute Plan: Patient with hematoma on back of head. PT ordered for today. (4) Urinary tract infection Status: Acute Plan: Rocephin discontinue. Patient is asymptomatic and no culture indicated (5) Anemia Status: Acute Plan: Will monitor. HGB 8.6 (6) Thrombocytopenia Status: Acute Plan: Plts 18 this am down from 26 yesterday. No active signs of bleeding. Assessment and Plan Assessment and plan discussed with Dr. Doe. Discussed Condition With Nursing Discharge Planning to be determined Physician Attestation I and the CORPORATE BANKING OFFICER have both examined the patient and reviewed this note and I agree with these findings and plan of care. Kelechi Doe DO Problem Qualifiers (1) Syncope: Qualified Code: R55 - Syncope, unspecified syncope type (2) Urinary tract infection: Cheryl Parra [facility] Dec 28, 2016 07:35
[2016-12-28 07:50] VITALS: BP 93/56; PULSE 84; RESP 20; TEMP 97.6; O2SAT 96
[2016-12-28] MEDS: DOCUSATE SODIUM 50 MG/SENNA 8.6 MG TAB PO SCH ×2 (09:00→20:09)
[2016-12-28] MEDS: SODIUM CHLORIDE 1 GRAM TAB PO SCH ×3 (09:17→17:08)
[2016-12-28] MEDS: CHOLECALCIFEROL (VIT D3) 1000 UNIT TAB PO SCH (09:17)
[2016-12-28] MEDS: FAMOTIDINE 20 MG TAB PO SCH ×2 (09:17→20:09)
[2016-12-28] MEDS: DEMECLOCYCLINE HCL 150 MG TAB PO SCH ×2 (09:18→20:09)
[2016-12-28] MEDS: SODIUM CHLORIDE 0.9% FLUSH 10 ML FLUSH IV FLUSH SCH ×2 (09:26→20:40)
[2016-12-28 11:50] VITALS: BP 111/55; PULSE 80; RESP 20; TEMP 97.8; O2SAT 94
--- NOTE | 2016-12-28 12:08 | PD.ONC.PN ---
Subjective Subjective Remarks Afebrile overnight. Wants to go home. Doesn't like the telemetry. No bleeding. Denies feeling lightheaded. Objective Data Date Time Temp Pulse Resp B/P Pulse Ox O2 Delivery O2 Flow Rate FiO2 12/28/16 07:50 97.6 84 20 93/56 96 12/28/16 04:50 97.7 72 17 96/54 97 12/28/16 00:00 97.0 83 19 126/76 97 Automatic Cuff 12/27/16 20:13 73 12/27/16 20:00 98.0 72 16 109/51 97 115/54 81/56 12/27/16 15:50 98.1 71 20 98/51 96 12/28/16 12/28/16 12/28/16 07:00 15:00 23:00 Intake Total 60 ml Balance 60 ml Result Diagram: 12/28/16 0445 12/28/16 0445 Culture Results Microbiology Date/Time Procedure Status Source Growth 12/25/16 13:20 Aerobic Blood Culture - Preliminary Resulted Blood Other NO GROWTH IN 3 DAYS 12/25/16 13:20 Anaerobic Blood Culture - Preliminary Resulted Blood Other NO GROWTH IN 3 DAYS 12/25/16 13:25 Aerobic Blood Culture - Preliminary Resulted Blood Other NO GROWTH IN 3 DAYS 12/25/16 13:25 Anaerobic Blood Culture - Preliminary Resulted Blood Other NO GROWTH IN 3 DAYS Administered Medications Medications (Trade) Dose Ordered Sig/[place] Route PRN Reason Start Time Stop Time Status Last Admin Dose Admin Sodium Chloride (NS Flush) 2 ml UNSCH PRN IV FLUSH FLUSH AFTER USING IV ACCESS 12/24/16 14:45 12/28/16 04:46 Sodium Chloride (NS Flush) 2 ml BID IV FLUSH 12/24/16 21:00 12/28/16 09:26 Acetaminophen (Tylenol) 650 mg Q4H PRN PO TEMP > 100.4 12/24/16 14:45 12/24/16 22:58 Senna/Docusate Sodium (Meryl-Colace) 1 tab BID PO 12/24/16 21:00 12/26/16 08:38 Cholecalciferol (Vitamin D3) 1,000 units DAILY PO 12/25/16 09:00 12/28/16 09:17 Levothyroxine Sodium (Synthroid) 50 mcg DAILY@06 PO 12/25/16 06:00 6/19/17 05:02 Famotidine (Pepcid) 20 mg BID PO 12/25/16 09:00 12/28/16 09:17 Acetaminophen/ Hydrocodone Bitart ([place] 5-325 Mg) 1 tab Q4H PRN PO PAIN SCALE 5 TO 10 12/25/16 12:00 12/28/16 00:20 Filgrastim (Neupogen Inj) 480 mcg DAILY@14 SQ 12/25/16 14:00 12/27/16 13:10 Demeclocycline HCl (Declomycin) 300 mg Q12HR PO 12/26/16 00:25 12/28/16 09:18 Heparin Sodium (Porcine) (Heparin Central Flush) 250 units UNSCH PRN IV FLUSH SEE PROTOCOL TABLE 12/28/16 04:15 12/28/16 04:51 Sodium Chloride (NS Flush) 5 ml UNSCH PRN IV FLUSH FLUSH INFUSAPORT PER PROTOCOL 12/28/16 04:15 12/28/16 04:46 Sodium Chloride (Sodium Chloride) 1 gm TIDPC PO 12/28/16 09:30 12/28/16 09:17 Objective Remarks GENERAL: Elderly female, upright in bed in [employer]. SKIN: Warm and dry. HEAD: Normocephalic. EYES: No scleral icterus. No injection or drainage. NECK: Supple, trachea midline. CARDIOVASCULAR: Regular rate and rhythm RESPIRATORY: diminished at bases. scattered rhonchi. GASTROINTESTINAL: Abdomen soft, non-tender, nondistended. EXTREMITIES: No cyanosis, or edema. MUSCULOSKELETAL: Adequate muscle tone. NEUROLOGICAL: No obvious focal deficit. Awake, alert, and oriented x3. Assessment/Plan Problem List: (1) SIADH (syndrome of inappropriate ADH production) Status: Acute Plan: 12/28: continue salt replacement tabs, monitor sodium --nephrology following --on salt replacement tablets. (2) Small cell lung cancer Status: Acute Plan: 12/28: plan to start XRT soon. next cycle chemotherapy in 21 days from first cycle September 2016: diagnosis of SCLC made at [facility]. November 2016: started on XRT, received 5 treatments then moved to [facility] December 2016: 12/14: [id number] C1; jefferson Bolden who is planning to start XRT soon. (3) Thrombocytopenia Status: Acute Plan: --monitor and transfuse for platelet count less than 15K or bleeding (4) Anemia due to antineoplastic chemotherapy Status: Acute Plan: --monitor and transfuse for hgb<8mg/dL or bleeding (5) Neutropenia Status: Acute Plan: --on Neupogen --due to chemotherapy Assessment 76 y/o female with SCLC admitted with hyponatremia and neutropenia. Admitted after syncopal episode. found to have SIADH h/o Compression fracture of the thoracic and lumbar spine. COPD. Hypothyroidism. Limited stage small cell lung cancer. Attending Statement wants to go home. Concern about LOW BP. Defer to Dr Doe pancytopenia due to chemo. Na is low but stable Ok to d/c from my standpoint The exam, history, and the medical decision-making described in the above note were completed with the assistance of the mid-level provider. I reviewed and agree with the findings presented. I attest that I had a [id number] encounter with the patient on the same day, and personally performed and documented my assessment and findings in the medical record. Dolores Guzman Dec 28, 2016 12:08 Domenic Rowley MD Dec 28, 2016 16:15
--- NOTE | 2016-12-28 12:56 | HHI.NPPN ---
Subjective History of Present Illness 76 year old with Hyponatremia syncope, small cell ca lung Review of Systems General Constitutional: Fatigue Objective Data Data 12/27/16 12/28/16 19:00 07:00 Intake Total 500 ml 180 ml Balance 500 ml 180 ml Intake Oral 500 ml 180 ml # Voids 5 6 # Bowel Movements 0 0 Vital Signs Date Time Temp Pulse Resp B/P Pulse Ox O2 Delivery O2 Flow Rate FiO2 12/28/16 07:50 97.6 84 20 93/56 96 12/28/16 04:50 97.7 72 17 96/54 97 12/28/16 00:00 97.0 83 19 126/76 97 Automatic Cuff 12/27/16 20:13 73 12/27/16 20:00 98.0 72 16 109/51 97 115/54 81/56 12/27/16 15:50 98.1 71 20 98/51 96 -: 12/28/16 0445 12/28/16 0445 Physical Exam General Appearance: No Acute Distress Throat Throat Exam: Oral Mucosa [place] & Moist Pulmonary Resp Exam: Clear Bilaterally Cardiology CV Exam: Regular, Normal Sinus Rhythm Gastrointestinal/Abdomen GI Exam: Soft, Non-Tender Musculoskeletal MS Exam: Joints Intact Extremeties Extremities Exam: No Edema Assessment/Plan Problem List: (1) Hyponatremia Plan: Likely due to SIADH. She is on Demeclocycline. [place] oral fluid restriction. Treat underlying cancer. Na 127 give albumin as orthostatic standing BP 77/48 AM cortisol level agree with Midodrine (2) Closed head injury (3) Neutropenia Plan: She received the carboplatin and Etoposide Continue to monitor on Neupogen (4) Syncope Plan: Likely due to hyponatremia Problem Qualifiers (1) Closed head injury: Qualified Code: S09.90XA - Closed head injury, initial encounter (2) Syncope: Qualified Code: R55 - Syncope, unspecified syncope type Brittany Corrigan MD Dec 28, 2016 12:56 Qualified Code: R55 - Syncope, unspecified syncope type (3) Urinary tract infection: Brittany Corrigan MD Dec 28, 2016 12:56
[2016-12-28] MEDS: FILGRASTIM 480 MCG/1.6 ML VIAL SQ SCH (13:13)
[2016-12-28] MEDS: ALBUMIN HUMAN 25% 25 GM/100 ML BAGP IV SCH (13:14)
[2016-12-28 15:50] VITALS: BP 124/58; PULSE 74; RESP 20; TEMP 97.5; O2SAT 96
[2016-12-28] MEDS: MIDODRINE 5 MG TAB PO SCH (17:07)
[2016-12-28 20:00] VITALS: BP 108/55; PULSE 70; PULSE 71; RESP 16; TEMP 97.9; O2SAT 96
[2016-12-29] VITALS (9 sets, daily range): BP systolic 75–153; BP diastolic 42–68; PULSE 70–80; RESP 16–20; TEMP 97.2–99.1; O2SAT 91–98
[2016-12-29] MEDS: ALBUMIN HUMAN 25% 25 GM/100 ML BAGP IV SCH ×2 (00:23→13:56)
[2016-12-29] MEDS: SODIUM CHLORIDE 0.9% FLUSH 10 ML FLUSH IV FLUSH PRN ×6 (00:26→20:47)
[2016-12-29] MEDS: ACETAMINOPHEN/HYDROcodone 325 MG/5 MG TAB PO PRN ×4 (01:10→18:08)
[2016-12-29 04:34] LABS: HEMATOCRIT 22.7 % (35.0-46.0); RED BLOOD COUNT 2.84 MIL/MM3 (4.00-5.30); RED CELL DISTRIBUTION WIDTH 12.8 % (11.6-17.2); WHITE BLOOD COUNT 3.6 TH/MM3 (4.0-11.0)
[2016-12-29 04:40] LABS: HEMO FLAGS AUTO DIFF
[2016-12-29 04:41] LABS: PLATELET COUNT 18 TH/MM3 (150-450)
[2016-12-29 05:09] LABS: BICARBONATE 25.7 MEQ/L (21.0-32.0); POTASSIUM 3.8 MEQ/L (3.5-5.1)
[2016-12-29 05:31] LABS: BANDS 11 % (0-6); EOSINOPHILS 1 % (0-4); METAMYELOCYTES 7 % (0-1); NEUTROPHIL # MANUAL DIFF 1.3 TH/MM3 (1.8-7.7); POLYS (SEG NEUTROPHILS) 18 % (16-70); WBC DIFF SAMPLE 100
[2016-12-29 05:33] LABS: OVALOCYTES 1+ (NORMAL); PLATELET ESTIMATE SMEAR LOW (NORMAL); PLATELET MORPHOLOGY NORMAL (NORMAL); SCAN/DIFF FINAL DIFF MANUAL
[2016-12-29] MEDS ORDERED: SODIUM CHLOR 0.9% 250 ML INJ 250 ML IV ONE (06:00)
[2016-12-29] MEDS ORDERED: ACETAMINOPHEN 325 MG TAB PO PRN (06:00)
[2016-12-29] MEDS ORDERED: diphenhydrAMINE HCL 25 MG CAP PO PRN (06:00)
[2016-12-29] MEDS: MIDODRINE 5 MG TAB PO SCH ×3 (06:30→18:07)
[2016-12-29] MEDS: LEVOTHYROXINE SODIUM 50 MCG TAB PO SCH (06:30)
--- NOTE | 2016-12-29 07:51 | HHI.PR ---
Subjective Remarks Patient is wanting to go home. Denies any CP or SOB. Patient was orthostatic yesterday. Albumin and midodrine was ordered. Objective Vital Signs Date Time Temp Pulse Resp B/P Pulse Ox O2 Delivery O2 Flow Rate FiO2 12/29/16 04:15 97.8 80 18 100/57 94 12/29/16 00:22 97.2 74 18 131/58 95 12/28/16 20:00 70 12/28/16 20:00 97.9 71 16 108/55 96 12/28/16 15:50 97.5 74 20 124/58 96 12/28/16 11:50 97.8 80 20 111/55 94 12/28/16 07:50 97.6 84 20 93/56 96 I/O 12/28/16 12/28/16 12/28/16 12/29/16 12/29/16 12/29/16 07:00 15:00 23:00 07:00 15:00 23:00 Intake Total 60 ml 540 ml 100 ml Balance 60 ml 540 ml 100 ml Intake Oral 60 ml 540 ml Albumin 100 ml # Voids 3 6 # Bowel Movements 0 0 Result Diagram: 12/29/1640612/29/16406 Other Results GENERAL: alert SKIN: Warm and dry. HEAD: Normocephalic. EYES: No scleral icterus. No injection or drainage. NECK: Supple, trachea midline. No JVD or lymphadenopathy. CARDIOVASCULAR: Regular rate and rhythm without murmurs, gallops, or rubs. RESPIRATORY: Breath sounds equal bilaterally. No accessory muscle use. GASTROINTESTINAL: Abdomen soft, non-tender, nondistended. MUSCULOSKELETAL: No cyanosis, or edema. BACK: Nontender without obvious deformity. No CVA tenderness. Medications and IVs Current Medications Medications (Trade) Dose Ordered Sig/Alma Route Start Time Stop Time Status Last Admin (NS Flush) 2 ml UNSCH PRN IV FLUSH 12/24/16 14:45 12/29/16 04:08 (NS Flush) 2 ml BID IV FLUSH 12/24/16 21:00 12/28/16 09:26 (Tylenol) 650 mg Q4H PRN PO 12/24/16 14:45 12/24/16 22:58 (Zofran Inj) 4 mg Q6H PRN IVP 12/24/16 14:45 (Narcan Inj) 0.4 mg UNSCH PRN IV 12/24/16 14:45 (Meryl-Colace) 1 tab BID PO 12/24/16 21:00 12/26/16 08:38 (Milk Of Magnesia Liq) 30 ml Q12H PRN PO 12/24/16 14:45 (Senokot) 17.2 mg Q12H PRN PO 12/24/16 14:45 (Dulcolax Supp) 10 mg DAILY PRN RECTAL 12/24/16 14:45 (Lactulose Liq) 30 ml DAILY PRN PO 12/24/16 14:45 (Vitamin D3) 1,000 units DAILY PO 12/25/16 09:00 12/28/16 09:17 (Synthroid) 50 mcg DAILY@06 PO 12/25/16 06:00 12/29/16 06:30 (Pepcid) 20 mg BID PO 12/25/16 09:00 12/28/16 20:09 ([place] 5-325 Mg) 1 tab Q4H PRN PO 12/25/16 12:00 12/29/16 01:10 (Neupogen Inj) 480 mcg DAILY@14 SQ 12/25/16 14:00 12/28/16 13:13 (Declomycin) 300 mg Q12HR PO 12/26/16 00:25 12/28/16 20:09 (Heparin Central Flush) 250 units UNSCH PRN IV FLUSH 12/28/16 04:15 12/29/16 04:08 (Heparin Central Flush) 500 units UNSCH IV FLUSH 12/28/16 04:15 (NS Flush) 5 ml UNSCH PRN IV FLUSH 12/28/16 04:15 12/29/16 04:08 (Sodium Chloride) 1 gm TIDPC PO 12/28/16 09:30 12/28/16 17:08 (Proamatine) 5 mg TID@,12,17 PO 12/28/16 17:00 12/29/16 06:30 Albumin Human 25 gm 25 gm Q12H IV 12/28/16 13:00 12/30/16 12:59 12/29/16 00:23 (NS 250 ml Inj) 250 ml @ 15 mls/hr ONCE ONCE IV 12/29/16 06:00 12/29/16 22:39 (Tylenol) 650 mg Q4H PRN PO 12/29/16 06:00 12/29/16 10:01 (Benadryl) 25 mg Q4H PRN PO 12/29/16 06:00 12/29/16 10:01 Assessment and Plan Problem List: (1) Hyponatremia Status: Acute Plan: Sodium 129 down from 127. On demeclocycline and sodium tablets Per note most likely due to SIADH and lung cancer patient Patient reports that she has been drinking excessive amount of water. fluid restriction ordered. (2) Neutropenia Status: Acute Plan: WBC 3.6 this AM. Neupogen ordered per oncology. (3) Syncope Status: Acute Plan: Patient with hematoma on back of head. PT ordered (4) Urinary tract infection Status: Acute Plan: Rocephin discontinue. Patient is asymptomatic and no culture indicated (5) Anemia Status: Acute Plan: Will monitor. HGB 8.0 (6) Thrombocytopenia Status: Acute Plan: Plts remain at 18 this am. No active signs of bleeding. Assessment and Plan Assessment and plan discussed with Dr. Doe. Discussed Condition With Nursing Danyell [employer] for oncology Discharge Planning Plan for discharge home with [facility] Patient is cleared for discharge per oncology. If tolerates activity well today and blood pressure stable will discharge tomorrow home. Physician Attestation I and the TURBINE ATTENDANT have both examined this note and I agree with these findings and plan of care. Kelechi Doe DO Problem Qualifiers (1) Syncope: Qualified Code: R55 - Syncope, unspecified syncope type (2) Urinary tract infection: Cheryl Parra Dec 29, 2016 07:51
--- NOTE | 2016-12-29 07:52 | HHI.FF ---
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 My clinical findings support the need for the requested home health care services because: Ltd mobility - disease progression Deconditioned w/ increased weakness High risk of falls I certify that my clinical findings support that this patient is homebound because: Unsteady gait/balance Cheryl Parra [facility] Dec 29, 2016 07:52
[2016-12-29] MEDS: SODIUM CHLORIDE 0.9% FLUSH 10 ML FLUSH IV FLUSH SCH ×2 (09:00→20:01)
[2016-12-29] MEDS: SODIUM CHLORIDE 1 GRAM TAB PO SCH ×3 (09:12→18:07)
[2016-12-29] MEDS: FAMOTIDINE 20 MG TAB PO SCH ×2 (09:13→20:01)
[2016-12-29] MEDS: DOCUSATE SODIUM 50 MG/SENNA 8.6 MG TAB PO SCH ×2 (09:13→20:01)
[2016-12-29] MEDS: CHOLECALCIFEROL (VIT D3) 1000 UNIT TAB PO SCH (09:13)
[2016-12-29] MEDS: DEMECLOCYCLINE HCL 150 MG TAB PO SCH ×2 (09:13→20:01)
--- NOTE | 2016-12-29 11:15 | PD.ONC.PN ---
Subjective Subjective Remarks Afebrile overnight. Patient resting in bed in nad. Didn't sleep well last night. Still gets lightheaded with walking No bleeding. Objective Data Date Time Temp Pulse Resp B/P Pulse Ox O2 Delivery O2 Flow Rate FiO2 12/29/16 08:00 97.8 80 18 99/53 95 87/58 78/42 12/29/16 04:15 97.8 80 18 100/57 94 12/29/16 00:22 97.2 74 18 131/58 95 12/28/16 20:00 70 12/28/16 20:00 97.9 71 16 108/55 96 12/28/16 15:50 97.5 74 20 124/58 96 12/28/16 11:50 97.8 80 20 111/55 94 12/29/16 12/29/16 12/29/16 07:00 15:00 23:00 Intake Total 100 ml Balance 100 ml Result Diagram: 12/29/16 0407 12/29/16 040 Laboratory Results Laboratory Tests Test 12/29/16 04:07 White Blood Count 3.6 TH/MM3 Red Blood Count 2.84 MIL/MM3 Hemoglobin 8.0 GM/DL Hematocrit 22.7 % Mean Corpuscular Volume 80.0 FL Mean Corpuscular Hemoglobin 28.0 PG Mean Corpuscular Hemoglobin 35.0 % Concent Red Cell Distribution Width 12.8 % Platelet Count 18 TH/MM3 Mean Platelet Volume 8.2 FL Neutrophils (%) (Auto) % Lymphocytes (%) (Auto) % Monocytes (%) (Auto) % Eosinophils (%) (Auto) % Basophils (%) (Auto) % Neutrophils # (Auto) TH/MM3 Lymphocytes # (Auto) TH/MM3 Monocytes # (Auto) TH/MM3 Eosinophils # (Auto) TH/MM3 Basophils # (Auto) TH/MM3 CBC Comment AUTO DIFF Differential Total Cells 100 Counted Neutrophils % (Manual) 18 % Band Neutrophils % 11 % Lymphocytes % 50 % Monocytes % 13 % Eosinophils % 1 % Neutrophils # (Manual) 1.3 TH/MM3 Metamyelocytes 7 % Differential Comment FINAL DIFF MANUAL Platelet Estimate LOW Platelet Morphology Comment NORMAL Ovalocytes 1+ Sodium Level 128 MEQ/L Potassium Level 3.8 MEQ/L Chloride Level 96 MEQ/L Carbon Dioxide Level 25.7 MEQ/L Anion Gap 6 MEQ/L Blood Urea Nitrogen 8 MG/DL Creatinine 0.60 MG/DL Estimat Glomerular Filtration 97 ML/MIN Rate Random Glucose 87 MG/DL Calcium Level 9.0 MG/DL Random Cortisol 2.9 MCG/DL Blood Type A POSITIVE Blood Bank Comment Administered Medications Medications (Trade) Dose Ordered Sig/Alma Route PRN Reason Start Time Stop Time Status Last Admin Dose Admin Sodium Chloride (NS Flush) 2 ml UNSCH PRN IV FLUSH FLUSH AFTER USING IV ACCESS 12/24/16 14:45 12/29/16 04:08 Sodium Chloride (NS Flush) 2 ml BID IV FLUSH 12/24/16 21:00 12/29/16 09:00 Acetaminophen (Tylenol) 650 mg Q4H PRN PO TEMP > 100.4 12/24/16 14:45 12/24/16 22:58 Senna/Docusate Sodium (Meryl-Colace) 1 tab BID PO 12/24/16 21:00 12/29/16 09:13 Cholecalciferol (Vitamin D3) 1,000 units DAILY PO 12/25/16 09:00 12/29/16 09:13 Levothyroxine Sodium (Synthroid) 50 mcg DAILY@06 PO 12/25/16 06:00 12/29/16 06:30 Famotidine (Pepcid) 20 mg BID PO 12/25/16 09:00 12/29/16 09:13 Acetaminophen/ Hydrocodone Bitart ([place] 5-325 Mg) 1 tab Q4H PRN PO PAIN SCALE 5 TO 10 12/25/16 12:00 12/29/16 09:22 Filgrastim (Neupogen Inj) 480 mcg DAILY@14 SQ 12/25/16 14:00 12/28/16 13:13 Demeclocycline HCl (Declomycin) 300 mg Q12HR PO 12/26/16 00:25 12/29/16 09:13 Heparin Sodium (Porcine) (Heparin Central Flush) 250 units UNSCH PRN IV FLUSH SEE PROTOCOL TABLE 12/28/16 04:15 12/29/16 04:08 Sodium Chloride (NS Flush) 5 ml UNSCH PRN IV FLUSH FLUSH INFUSAPORT PER PROTOCOL 12/28/16 04:15 12/29/16 04:08 Sodium Chloride (Sodium Chloride) 1 gm TIDPC PO 12/28/16 09:30 12/29/16 09:12 Midodrine (Proamatine) 5 mg TID@07,12,17 PO 12/28/16 17:00 12/29/16 06:30 Albumin Human (Albumin 25% Inj) 25 gm Q12H IV 12/28/16 13:00 12/30/16 12:59 12/29/16 00:23 Objective Remarks GENERAL: Elderly female, sitting upright in bed SKIN: Warm and dry. HEAD: Normocephalic. EYES: No injection or drainage. NECK: Supple, trachea midline. CARDIOVASCULAR: Regular rate and rhythm RESPIRATORY: diminished at bases. scattered rhonchi. GASTROINTESTINAL: Abdomen soft, non-tender, nondistended. EXTREMITIES: No cyanosis, or edema. MUSCULOSKELETAL: Adequate muscle tone. NEUROLOGICAL: awake and alert, normal speech. moving all extremities. Assessment/Plan Problem List: (1) Small cell lung cancer Status: Acute Plan: 12/29: resume chemotherapy outpatient. XRT to start tomorrow. clear for discharge. September 2016: diagnosis of SCLC made at [facility]. November 2016: started on XRT, received 5 treatments then moved to [facility] December 2016: 12/14: carbo/VP16 C1; jefferson Bolden who is planning to start XRT soon. (2) SIADH (syndrome of inappropriate ADH production) Status: Acute Plan: 12/29: Ni=489 today. continue salt replacement tabs, monitor sodium --nephrology following --on salt replacement tablets. (3) Thrombocytopenia Status: Acute Plan: --monitor and transfuse for platelet count less than 15K or bleeding (4) Anemia due to antineoplastic chemotherapy Status: Acute Plan: --monitor and transfuse for hgb<8mg/dL or bleeding (5) Neutropenia Status: Acute Plan: --on Neupogen --due to chemotherapy Assessment 76 y/o female with SCLC admitted with hyponatremia and neutropenia. Admitted after syncopal episode. found to have SIADH h/o Compression fracture of the thoracic and lumbar spine. COPD. Hypothyroidism. Limited stage small cell lung cancer. Attending Statement c/o dizziness. Anxious to go home Denies any Bleeding Neutropenia has resolved, Stop Nuepogen Tomorrow Platelets Remains Low. No Transfusion Okay to discharge home The exam, history, and the medical decision-making described in the above note were completed with the assistance of the mid-level provider. I reviewed and agree with the findings presented. I attest that I had a [id number] encounter with the patient on the same day, and personally performed and documented my assessment and findings in the medical record. Dolores Guzman Dec 29, 2016 11:14 Domenic Rowley MD Dec 30, 2016 00:00
[2016-12-29] MEDS: FILGRASTIM 480 MCG/1.6 ML VIAL SQ SCH ×2 (14:02→14:37)
--- NOTE | 2016-12-29 18:56 | HHI.NPPN ---
Subjective History of Present Illness 76 year old with Hyponatremia syncope, small cell ca lung Review of Systems General Constitutional: Fatigue Objective Data Data 12/28/16 12/29/16 19:00 07:00 Intake Total 540 ml 100 ml Balance 540 ml 100 ml Intake Oral 540 ml Albumin 100 ml # Voids 6 # Bowel Movements 0 Vital Signs Date Time Temp Pulse Resp B/P Pulse Ox O2 Delivery O2 Flow Rate FiO2 12/29/16 16:00 97.8 72 20 92/51 95 101/56 89/48 12/29/16 12:00 97.8 70 18 105/50 95 85/50 75/54 12/29/16 08:00 97.8 80 18 99/53 95 87/58 78/42 12/29/16 04:15 97.8 80 18 100/57 94 12/29/16 00:22 97.2 74 18 131/58 95 12/28/16 20:00 70 12/28/16 20:00 97.9 71 16 108/55 96 -: 12/29/16 0407 12/29/16 0407 Physical Exam General Appearance: No Acute Distress Throat Throat Exam: Oral Mucosa [place] & Moist Pulmonary Resp Exam: Clear Bilaterally Cardiology CV Exam: Regular, Normal Sinus Rhythm Gastrointestinal/Abdomen GI Exam: Soft, Non-Tender Musculoskeletal MS Exam: Joints Intact Extremeties Extremities Exam: No Edema Assessment/Plan Problem List: (1) Hyponatremia Plan: Likely due to SIADH. She is on Demeclocycline. Treat underlying cancer. Na 128 give albumin as orthostatic standing BP 77/48 AM cortisol level 2.9 low give cosyntropin and recheck agree with Midodrine (2) Closed head injury (3) Neutropenia Plan: She received the carboplatin and Etoposide Continue to monitor on Neupogen (4) Syncope Plan: Likely due to hyponatremia Problem Qualifiers (1) Closed head injury: Qualified Code: S09.90XA - Closed head injury, initial encounter (2) Syncope: Qualified Code: R55 - Syncope, unspecified syncope type Brittany Corrigan MD Dec 29, 2016 18:56
[2016-12-29] MEDS ORDERED: COSYNTROPIN 0.25 MG VIAL IV PUSH ONE (19:00)
[2016-12-30] VITALS (12 sets, daily range): BP systolic 82–151; BP diastolic 45–71; PULSE 75–105; RESP 16–20; TEMP 97.6–99.1; O2SAT 90–94
[2016-12-30] MEDS: SODIUM CHLORIDE 0.9% FLUSH 10 ML FLUSH IV FLUSH PRN ×2 (00:22→01:03)
[2016-12-30] MEDS: ALBUMIN HUMAN 25% 25 GM/100 ML BAGP IV SCH (00:22)
[2016-12-30] MEDS: ACETAMINOPHEN/HYDROcodone 325 MG/5 MG TAB PO PRN ×3 (00:26→19:30)
[2016-12-30 04:52] LABS: HEMATOCRIT 22.4 % (35.0-46.0); MEAN CELL VOLUME 79.7 FL (80.0-100.0); MEAN CORPUSCULAR HEMOGLOBIN 28.5 PG (27.0-34.0); MEAN CORPUSCULAR HGB CONC 35.7 % (32.0-36.0); PLATELET COUNT 33 TH/MM3 (150-450); RED BLOOD COUNT 2.81 MIL/MM3 (4.00-5.30); RED CELL DISTRIBUTION WIDTH 12.8 % (11.6-17.2); WHITE BLOOD COUNT 16.4 TH/MM3 (4.0-11.0)
[2016-12-30 05:05] LABS: HEMO FLAGS AUTO DIFF
[2016-12-30 05:29] LABS: BICARBONATE 24.1 MEQ/L (21.0-32.0); POTASSIUM 4.2 MEQ/L (3.5-5.1)
[2016-12-30] MEDS: MIDODRINE 5 MG TAB PO SCH ×3 (06:37→19:32)
[2016-12-30] MEDS: LEVOTHYROXINE SODIUM 50 MCG TAB PO SCH (06:37)
--- NOTE | 2016-12-30 07:57 | PD.ONC.PN ---
Subjective Subjective Remarks Afebrile overnight "I feel great and I want to go home" States she has breathing treatments at home Denies SOB or dizziness Objective Data Date Time Temp Pulse Resp B/P Pulse Ox O2 Delivery O2 Flow Rate FiO2 12/30/16 05:07 16 92 12/30/16 05:00 92 21 12/30/16 04:26 98.1 86 16 116/55 90 12/30/16 00:32 105 99/56 12/30/16 00:31 100 129/71 12/30/16 00:30 97.9 89 18 151/69 92 12/29/16 20:00 97.6 72 18 153/68 91 12/29/16 19:14 89/50 12/29/16 18:30 99.1 72 16 118/59 98 12/29/16 18:00 99/58 12/29/16 16:00 97.8 72 20 92/51 95 101/56 89/48 12/29/16 12:00 97.8 70 18 105/50 95 85/50 75/54 12/29/16 08:00 97.8 80 18 99/53 95 87/58 78/42 12/30/16 12/30/16 12/30/16 07:00 15:00 23:00 Intake Total 100 ml Balance 100 ml Result Diagram: 12/30/16 0420 12/30/16 042 Laboratory Results Laboratory Tests Test 12/29/16 12/30/16 20:45 04:20 Random Cortisol 36.6 MCG/DL White Blood Count 16.4 TH/MM3 Red Blood Count 2.81 MIL/MM3 Hemoglobin 8.0 GM/DL Hematocrit 22.4 % Mean Corpuscular Volume 79.7 FL Mean Corpuscular Hemoglobin 28.5 PG Mean Corpuscular Hemoglobin 35.7 % Concent Red Cell Distribution Width 12.8 % Platelet Count 33 TH/MM3 Mean Platelet Volume 8.9 FL Neutrophils (%) (Auto) % Lymphocytes (%) (Auto) % Monocytes (%) (Auto) % Eosinophils (%) (Auto) % Basophils (%) (Auto) % Neutrophils # (Auto) TH/MM3 Lymphocytes # (Auto) TH/MM3 Monocytes # (Auto) TH/MM3 Eosinophils # (Auto) TH/MM3 Basophils # (Auto) TH/MM3 CBC Comment AUTO DIFF Sodium Level 127 MEQ/L Potassium Level 4.2 MEQ/L Chloride Level 93 MEQ/L Carbon Dioxide Level 24.1 MEQ/L Anion Gap 10 MEQ/L Blood Urea Nitrogen 8 MG/DL Creatinine 0.53 MG/DL Estimat Glomerular Filtration 112 ML/MIN Rate Random Glucose 94 MG/DL Calcium Level 8.9 MG/DL Administered Medications Medications (Trade) Dose Ordered Sig/Alma Route PRN Reason Start Time Stop Time Status Last Admin Dose Admin Sodium Chloride (NS Flush) 2 ml UNSCH PRN IV FLUSH FLUSH AFTER USING IV ACCESS 12/24/16 14:45 12/29/16 20:47 Sodium Chloride (NS Flush) 2 ml BID IV FLUSH 12/24/16 21:00 12/29/16 20:01 Acetaminophen (Tylenol) 650 mg Q4H PRN PO TEMP > 100.4 12/24/16 14:45 12/24/16 22:58 Senna/Docusate Sodium (Meryl-Colace) 1 tab BID PO 12/24/16 21:00 12/29/16 09:13 Cholecalciferol (Vitamin D3) 1,000 units DAILY PO 12/25/16 09:00 12/29/16 09:13 Levothyroxine Sodium (Synthroid) 50 mcg DAILY@06 PO 12/25/16 06:00 12/30/16 06:37 Famotidine (Pepcid) 20 mg BID PO 12/25/16 09:00 12/29/16 20:01 Acetaminophen/ Hydrocodone Bitart ([place] 5-325 Mg) 1 tab Q4H PRN PO PAIN SCALE 5 TO 10 12/25/16 12:00 12/30/16 00:26 Demeclocycline HCl (Declomycin) 300 mg Q12HR PO 12/26/16 00:25 12/29/16 20:01 Heparin Sodium (Porcine) (Heparin Central Flush) 250 units UNSCH PRN IV FLUSH SEE PROTOCOL TABLE 12/28/16 04:15 12/29/16 20:47 Heparin Sodium (Porcine) (Heparin Central Flush) 500 units UNSCH IV FLUSH 12/28/16 04:15 12/29/16 14:36 Sodium Chloride (NS Flush) 5 ml UNSCH PRN IV FLUSH FLUSH INFUSAPORT PER PROTOCOL 12/28/16 04:15 12/30/16 01:03 Sodium Chloride (Sodium Chloride) 1 gm TIDPC PO 12/28/16 09:30 12/29/16 18:07 Midodrine (Proamatine) 5 mg TID@07,12,17 PO 12/28/16 17:00 12/30/16 06:37 Albumin Human (Albumin 25% Inj) 25 gm Q12H IV 12/28/16 13:00 12/30/16 12:59 12/30/16 00:22 Objective Remarks GENERAL: Chronically ill appearing older female, asleep in bed. She awakens easily to verbal stimuli. SKIN: Warm and dry. HEAD: Normocephalic. EYES: No injection or drainage. NECK: No JVD or lymphadenopathy. CARDIOVASCULAR: Regular rate and rhythm without murmurs. RESPIRATORY: Breathing unlabored. Lungs clear posteriorly. GASTROINTESTINAL: Abdomen soft, non-tender, nondistended. EXTREMITIES: No cyanosis, or edema. MUSCULOSKELETAL: Generalized weakness. NEUROLOGICAL: No obvious focal deficit. Awake, alert, and oriented x3. Assessment/Plan Problem List: (1) Small cell lung cancer Status: Acute Plan: 12/30: Stop Neupogen. Will get O2 walk test, as RN states O2 sats have been in 85-88 range at times. Otherwise she remains clear for discharge from an oncology standpoint. 12/29: resume chemotherapy outpatient. XRT to start tomorrow. clear for discharge. September 2016: diagnosis of SCLC made at [facility]. November 2016: started on XRT, received 5 treatments then moved to [facility] December 2016: 12/14: carbo/VP16 C1; jefferson Bolden who is planning to start XRT soon. (2) SIADH (syndrome of inappropriate ADH production) Status: Acute Plan: 12/29: At=080 today. continue salt replacement tabs, monitor sodium --nephrology following --on salt replacement tablets. (3) Thrombocytopenia Status: Acute Plan: --monitor and transfuse for platelet count less than 15K or bleeding (4) Anemia due to antineoplastic chemotherapy Status: Acute Plan: --monitor and transfuse for hgb<8mg/dL or bleeding (5) Neutropenia Status: Acute Plan: --on Neupogen --due to chemotherapy Assessment 76 y/o female with SCLC admitted with hyponatremia and neutropenia. Admitted after syncopal episode. found to have SIADH h/o Compression fracture of the thoracic and lumbar spine. COPD. Hypothyroidism. Limited stage small cell lung cancer. Attending Statement c/o dizziness when gets up Has orthostatic hypotension. Resume XRT today, The exam, history, and the medical decision-making described in the above note were completed with the assistance of the mid-level provider. I reviewed and agree with the findings presented. I attest that I had a [id number] encounter with the patient on the same day, and personally performed and documented my assessment and findings in the medical record. Latanya Amos Dec 30, 2016 07:56 Domenic Rowley MD Dec 31, 2016 00:58
[2016-12-30] MEDS: CHOLECALCIFEROL (VIT D3) 1000 UNIT TAB PO SCH (09:30)
[2016-12-30] MEDS: FAMOTIDINE 20 MG TAB PO SCH ×2 (09:30→20:33)
[2016-12-30] MEDS: SODIUM CHLORIDE 1 GRAM TAB PO SCH ×3 (09:31→19:31)
[2016-12-30] MEDS: DEMECLOCYCLINE HCL 150 MG TAB PO SCH ×2 (09:31→20:33)
[2016-12-30] MEDS: SODIUM CHLORIDE 0.9% FLUSH 10 ML FLUSH IV FLUSH SCH ×2 (09:36→20:34)
[2016-12-30] MEDS: DOCUSATE SODIUM 50 MG/SENNA 8.6 MG TAB PO SCH ×2 (09:37→20:34)
[2016-12-30 09:47] LABS: BANDS 22 % (0-6); BLASTS 1 % (0-0); METAMYELOCYTES 4 % (0-1); MYELOCYTES 4 % (0-0); NEUTROPHIL # MANUAL DIFF 10.8 TH/MM3 (1.8-7.7); POLYS (SEG NEUTROPHILS) 35 % (16-70); PROMYELOCYTES 1 % (0-0); WBC DIFF SAMPLE 100
--- NOTE | 2016-12-30 09:47 | HHI.PR ---
Subjective Remarks Patient is wanting to go home. Denies any CP or SOB. Patient with orthostatic hypotension. Patient was stood at bedside and feels dizzy. Objective Vital Signs Date Time Temp Pulse Resp B/P Pulse Ox O2 Delivery O2 Flow Rate FiO2 12/30/16 07:30 98.7 85 20 119/67 92 112/61 82/47 12/30/16 05:07 16 92 12/30/16 05:00 92 21 12/30/16 04:26 98.1 86 16 116/55 90 12/30/16 00:32 105 99/56 12/30/16 00:31 100 129/71 12/30/16 00:30 97.9 89 18 151/69 92 12/29/16 20:00 97.6 72 18 153/68 91 12/29/16 19:14 89/50 12/29/16 18:30 99.1 72 16 118/59 98 12/29/16 18:00 99/58 12/29/16 16:00 97.8 72 20 92/51 95 101/56 89/48 12/29/16 12:00 97.8 70 18 105/50 95 85/50 75/54 I/O 12/29/16 12/29/16 12/29/16 12/30/16 12/30/16 12/30/16 07:00 15:00 23:00 07:00 15:00 23:00 Intake Total 100 ml 960 ml 100 ml Balance 100 ml 960 ml 100 ml Intake Oral 960 ml Albumin 100 ml 100 ml # Voids 4 # Bowel Movements 1 Result Diagram: 12/30/1641912/30/16419 Objective Remarks GENERAL: Alert and cooperative SKIN: Warm and dry. HEAD: Normocephalic. EYES: No scleral icterus. No injection or drainage. NECK: Supple, trachea midline. No JVD or lymphadenopathy. CARDIOVASCULAR: Regular rate and rhythm without murmurs, gallops, or rubs. RESPIRATORY: Breath sounds equal bilaterally. No accessory muscle use. GASTROINTESTINAL: Abdomen soft, non-tender, nondistended. MUSCULOSKELETAL: No cyanosis, or edema. BACK: Nontender without obvious deformity. No CVA tenderness. Medications and IVs Current Medications Medications (Trade) Dose Ordered Sig/Alma Route Start Time Stop Time Status Last Admin (NS Flush) 2 ml UNSCH PRN IV FLUSH 12/24/16 14:45 12/29/16 20:47 (NS Flush) 2 ml BID IV FLUSH 12/24/16 21:00 12/30/16 09:36 (Tylenol) 650 mg Q4H PRN PO 12/24/16 14:45 12/24/16 22:58 (Zofran Inj) 4 mg Q6H PRN IVP 12/24/16 14:45 (Narcan Inj) 0.4 mg UNSCH PRN IV 12/24/16 14:45 (Meryl-Colace) 1 tab BID PO 12/24/16 21:00 12/29/16 09:13 (Milk Of Magnesia Liq) 30 ml Q12H PRN PO 12/24/16 14:45 (Senokot) 17.2 mg Q12H PRN PO 12/24/16 14:45 (Dulcolax Supp) 10 mg DAILY PRN RECTAL 12/24/16 14:45 (Lactulose Liq) 30 ml DAILY PRN PO 12/24/16 14:45 (Vitamin D3) 1,000 units DAILY PO 12/25/16 09:00 12/30/16 09:30 (Synthroid) 50 mcg DAILY@06 PO 12/25/16 06:00 12/30/16 06:37 (Pepcid) 20 mg BID PO 12/25/16 09:00 12/30/16 09:30 ([place] 5-325 Mg) 1 tab Q4H PRN PO 12/25/16 12:00 12/30/16 00:26 (Declomycin) 300 mg Q12HR PO 12/26/16 00:25 12/30/16 09:31 (Heparin Central Flush) 250 units UNSCH PRN IV FLUSH 12/28/16 04:15 12/29/16 20:47 (Heparin Central Flush) 500 units UNSCH IV FLUSH 12/28/16 04:15 12/29/16 14:36 (NS Flush) 5 ml UNSCH PRN IV FLUSH 12/28/16 04:15 12/30/16 01:03 (Sodium Chloride) 1 gm TIDPC PO 12/28/16 09:30 12/30/16 09:31 (Proamatine) 5 mg TID@07,12,17 PO 12/28/16 17:00 12/30/16 06:37 (Albumin 25% Inj) 25 gm Q12H IV 12/28/16 13:00 12/30/16 12:59 12/30/16 00:22 Assessment and Plan Problem List: (1) Orthostatic hypertension Status: Acute Plan: Patient with significant orthostatic hypotension. Lying down with B/P 119/67, Sitting 112/61 HR 90, and standing with B/P 82/47 HR 91 Reports that she feels dizzy when standing Midodrine increased today Cortrosyn given yesterday with Cortisol level of 38.6 today Discussed with Nephrology (2) Hyponatremia Status: Acute Plan: Sodium 127. On demeclocycline and sodium tablets Per note most likely due to SIADH and lung cancer patient Patient reports that she has been drinking excessive amount of water. fluid restriction ordered. (3) Neutropenia Status: Acute Plan: WBC 16.4 Neupogen discontinued. (4) Syncope Status: Acute Plan: Patient with hematoma on back of head. PT ordered recommending Rehab (5) Urinary tract infection Status: Acute Plan: Rocephin discontinue. Patient is asymptomatic and no culture indicated (6) Anemia Status: Acute Plan: Will monitor. HGB 8.0 (7) Thrombocytopenia Status: Acute Plan: Plts remain at 33 this am. No active signs of bleeding. (8) Small cell lung cancer Status: Acute Plan: Patient scheduled for radiation today. Assessment and Plan Assessment and plan discussed with Dr. Doe. Discussed Condition With Nursing and Nephrology Discharge Planning Recommend REHAB Physician Attestation I and the PAD MACHINE OFFBEARER have both examined this aptient and reviewed this note and I agree with these findings and plan of care. Kelechi Doe DO Problem Qualifiers (1) Syncope: Qualified Code: R55 - Syncope, unspecified syncope type (2) Urinary tract infection: Cheryl Parra Dec 30, 2016 09:47
[2016-12-30 09:48] LABS: DOHLE BODIES PRESENT (NONE SEEN); OVALOCYTES 1+ (NORMAL); PLATELET ESTIMATE SMEAR LOW (NORMAL); PLATELET MORPHOLOGY NORMAL (NORMAL); SCAN/DIFF FINAL DIFF MANUAL; TOXIC GRANULATION 1+ (NORMAL)
[2016-12-30] MEDS: ONDANSETRON HCL 4 MG/2 ML VIAL IVP PRN (11:07)
--- NOTE | 2016-12-30 13:55 | HHI.NPPN ---
Subjective History of Present Illness 76 year old with Hyponatremia syncope, small cell ca lung Review of Systems General Constitutional: Fatigue Objective Data Data 12/29/16 12/30/16 19:00 07:00 Intake Total 960 ml 100 ml Balance 960 ml 100 ml Intake Oral 960 ml Albumin 100 ml # Voids 4 # Bowel Movements 1 Vital Signs Date Time Temp Pulse Resp B/P Pulse Ox O2 Delivery O2 Flow Rate FiO2 12/30/16 11:30 97.6 93 20 110/52 92 12/30/16 07:30 98.7 85 20 119/67 92 112/61 82/47 12/30/16 05:07 16 92 12/30/16 05:00 92 21 12/30/16 04:26 98.1 86 16 116/55 90 12/30/16 00:32 105 99/56 12/30/16 00:31 100 129/71 12/30/16 00:30 97.9 89 18 151/69 92 12/29/16 20:00 97.6 72 18 153/68 91 12/29/16 19:14 89/50 12/29/16 18:30 99.1 72 16 118/59 98 12/29/16 18:00 99/58 12/29/16 16:00 97.8 72 20 92/51 95 101/56 89/48 -: 12/30/16 0420 12/30/16 0420 Physical Exam General Appearance: No Acute Distress Throat Throat Exam: Oral Mucosa [place] & Moist Pulmonary Resp Exam: Clear Bilaterally Cardiology CV Exam: Regular, Normal Sinus Rhythm Gastrointestinal/Abdomen GI Exam: Soft, Non-Tender Musculoskeletal MS Exam: Joints Intact Extremeties Extremities Exam: No Edema Assessment/Plan Problem List: (1) Hyponatremia Plan: Likely due to SIADH. She is on Demeclocycline. Treat underlying cancer. Na 127 BP still orthostatic Midodrine 10 mg tid Cortisol level showed normal response to Cosyntropin on salt tablets if still orthostatic then she will need Nilson Hose stalking (2) Closed head injury (3) Neutropenia Plan: She received the carboplatin and Etoposide Continue to monitor on Neupogen (4) Syncope Plan: Likely due to hyponatremia Problem Qualifiers (1) Closed head injury: Qualified Code: S09.90XA - Closed head injury, initial encounter (2) Syncope: Qualified Code: R55 - Syncope, unspecified syncope type Brittany Corrigan MD Dec 30, 2016 13:55
[2016-12-31] VITALS (12 sets, daily range): BP systolic 70–146; BP diastolic 41–96; PULSE 66–97; RESP 16–21; TEMP 96.2–98.7; O2SAT 84–99
[2016-12-31 05:40] LABS: HEMATOCRIT 22.8 % (35.0-46.0); MEAN CELL VOLUME 81.4 FL (80.0-100.0); MEAN CORPUSCULAR HGB CONC 34.4 % (32.0-36.0); PLATELET COUNT 64 TH/MM3 (150-450); WHITE BLOOD COUNT 27.1 TH/MM3 (4.0-11.0)
[2016-12-31 05:42] LABS: HEMO FLAGS AUTO DIFF
[2016-12-31 06:06] LABS: POTASSIUM 3.7 MEQ/L (3.5-5.1)
[2016-12-31] MEDS: LEVOTHYROXINE SODIUM 50 MCG TAB PO SCH (06:14)
[2016-12-31] MEDS: MIDODRINE 5 MG TAB PO SCH ×3 (06:14→17:55)
[2016-12-31 07:45] LABS: BANDS 34 % (0-6); METAMYELOCYTES 1 % (0-1); MYELOCYTES 3 % (0-0); NEUTROPHIL # MANUAL DIFF 19.8 TH/MM3 (1.8-7.7); POLYS (SEG NEUTROPHILS) 34 % (16-70); PROMYELOCYTES 1 % (0-0); WBC DIFF SAMPLE 100
[2016-12-31 07:48] LABS: PLATELET ESTIMATE SMEAR LOW (NORMAL); PLATELET MORPHOLOGY NORMAL (NORMAL)
[2016-12-31 07:53] LABS: DOHLE BODIES PRESENT (NONE SEEN)
[2016-12-31 07:54] LABS: SCAN/DIFF FINAL DIFF MANUAL; TOXIC GRANULATION 1+ (NORMAL)
--- NOTE | 2016-12-31 08:50 | PD.ONC.PN ---
Subjective Subjective Remarks Afebrile overnight. Refusing O2 walk test Refusing O2 NC Still with dizziness on standing Objective Data Date Time Temp Pulse Resp B/P Pulse Ox O2 Delivery O2 Flow Rate FiO2 12/31/16 08:13 92 21 12/31/16 04:00 97.2 75 16 96/55 92 12/31/16 00:00 98.0 77 16 106/48 92 12/30/16 20:00 98.0 75 16 107/53 94 98/46 96/49 12/30/16 19:29 101/45 12/30/16 18:36 92 21 12/30/16 15:50 99.1 75 20 97/54 92 12/30/16 14:51 16 12/30/16 11:30 97.6 93 20 110/52 92 Result Diagram: 12/31/165 12/31/165 Laboratory Results Laboratory Tests Test 12/31/16 04:05 White Blood Count 27.1 TH/MM3 Red Blood Count 2.80 MIL/MM3 Hemoglobin 7.8 GM/DL Hematocrit 22.8 % Mean Corpuscular Volume 81.4 FL Mean Corpuscular Hemoglobin 28.0 PG Mean Corpuscular Hemoglobin 34.4 % Concent Red Cell Distribution Width 13.0 % Platelet Count 64 TH/MM3 Mean Platelet Volume 8.6 FL Neutrophils (%) (Auto) % Lymphocytes (%) (Auto) % Monocytes (%) (Auto) % Eosinophils (%) (Auto) % Basophils (%) (Auto) % Neutrophils # (Auto) TH/MM3 Lymphocytes # (Auto) TH/MM3 Monocytes # (Auto) TH/MM3 Eosinophils # (Auto) TH/MM3 Basophils # (Auto) TH/MM3 CBC Comment AUTO DIFF Differential Total Cells 100 Counted Neutrophils % (Manual) 34 % Band Neutrophils % 34 % Lymphocytes % 19 % Monocytes % 8 % Neutrophils # (Manual) 19.8 TH/MM3 Metamyelocytes 1 % Myelocytes 3 % Promyelocytes 1 % Differential Comment FINAL DIFF MANUAL Toxic Granulation 1+ Dohle Bodies PRESENT Platelet Estimate LOW Platelet Morphology Comment NORMAL Sodium Level 132 MEQ/L Potassium Level 3.7 MEQ/L Chloride Level 98 MEQ/L Carbon Dioxide Level 26.0 MEQ/L Anion Gap 8 MEQ/L Blood Urea Nitrogen 11 MG/DL Creatinine 0.63 MG/DL Estimat Glomerular Filtration 92 ML/MIN Rate Random Glucose 82 MG/DL Calcium Level 8.9 MG/DL Administered Medications Medications (Trade) Dose Ordered Sig/[place]ma Route PRN Reason Start Time Stop Time Status Last Admin Dose Admin Sodium Chloride (NS Flush) 2 ml UNSCH PRN IV FLUSH FLUSH AFTER USING IV ACCESS 12/24/16 14:45 12/29/16 20:47 Sodium Chloride (NS Flush) 2 ml BID IV FLUSH 12/24/16 21:00 12/30/16 20:34 Acetaminophen (Tylenol) 650 mg Q4H PRN PO TEMP > 100.4 12/24/16 14:45 12/24/16 22:58 Ondansetron HCl (Zofran Inj) 4 mg Q6H PRN IVP NAUSEA OR VOMITING 12/24/16 14:45 12/30/16 11:07 Senna/Docusate Sodium (Meryl-Colace) 1 tab BID PO 12/24/16 21:00 12/29/16 09:13 Cholecalciferol (Vitamin D3) 1,000 units DAILY PO 12/25/16 09:00 12/30/16 09:30 Levothyroxine Sodium (Synthroid) 50 mcg DAILY@06 PO 12/25/16 06:00 12/31/16 06:14 Famotidine (Pepcid) 20 mg BID PO 12/25/16 09:00 12/30/16 20:33 Acetaminophen/ Hydrocodone Bitart ([place] 5-325 Mg) 1 tab Q4H PRN PO PAIN SCALE 5 TO 10 12/25/16 12:00 12/30/16 19:30 Demeclocycline HCl (Declomycin) 300 mg Q12HR PO 12/26/16 00:25 12/30/16 20:33 Heparin Sodium (Porcine) (Heparin Central Flush) 250 units UNSCH PRN IV FLUSH SEE PROTOCOL TABLE 12/28/16 04:15 12/29/16 20:47 Heparin Sodium (Porcine) (Heparin Central Flush) 500 units UNSCH IV FLUSH 12/28/16 04:15 12/29/16 14:36 Sodium Chloride (NS Flush) 5 ml UNSCH PRN IV FLUSH FLUSH INFUSAPORT PER PROTOCOL 12/28/16 04:15 12/30/16 01:03 Sodium Chloride (Sodium Chloride) 1 gm TIDPC PO 12/28/16 09:30 12/30/16 19:31 Midodrine (Proamatine) 10 mg TID@07,12,17 PO 12/30/16 12:00 12/31/16 06:14 Objective Remarks GENERAL: Chronically ill appearing older female, sitting up in bed in no distress. SKIN: Warm and dry. HEAD: Normocephalic. EYES: No injection or drainage. NECK: No JVD or lymphadenopathy. CARDIOVASCULAR: Regular rate and rhythm without murmurs. RESPIRATORY: Breathing unlabored. Lungs clear posteriorly. GASTROINTESTINAL: Abdomen soft, non-tender, nondistended. EXTREMITIES: No cyanosis, or edema. MUSCULOSKELETAL: Generalized weakness. NEUROLOGICAL: No obvious focal deficit. Awake, alert, and oriented x3. Assessment/Plan Problem List: (1) Small cell lung cancer Status: Acute Plan: 12/31: Still with significant orthostatic hypotension. Will transfuse 1 unit PRBC's today. She will likely go to rehab upstairs today. Continue XRT M-. September 2016: diagnosis of SCLC made at [facility]. November 2016: started on XRT, received 5 treatments then moved to [facility] December 2016: 12/14: carbo/VP16 C1; jefferson Bolden who is planning to start XRT soon. (2) SIADH (syndrome of inappropriate ADH production) Status: Acute Plan: --nephrology following --on salt replacement tablets. (3) Thrombocytopenia Status: Acute Plan: --monitor and transfuse for platelet count less than 15K or bleeding (4) Anemia due to antineoplastic chemotherapy Status: Acute Plan: --monitor and transfuse for hgb<8mg/dL or bleeding (5) Neutropenia Status: Acute Plan: --on Neupogen --due to chemotherapy Assessment 76 y/o female with SCLC admitted with hyponatremia and neutropenia. Admitted after syncopal episode. found to have SIADH h/o Compression fracture of the thoracic and lumbar spine. COPD. Hypothyroidism. Limited stage small cell lung cancer. Attending Statement Complaining of Dizziness when she gets up Orthostatic hypotension blood tx today The exam, history, and the medical decision-making described in the above note were completed with the assistance of the mid-level provider. I reviewed and agree with the findings presented. I attest that I had a [id number] encounter with the patient on the same day, and personally performed and documented my assessment and findings in the medical record. Latanya Amos Dec 31, 2016 08:50 Domenic Rowley MD Jan 01, 2017 00:25
[2016-12-31] MEDS: DEMECLOCYCLINE HCL 150 MG TAB PO SCH ×2 (09:00→20:33)
[2016-12-31] MEDS ORDERED: diphenhydrAMINE HCL 25 MG CAP PO ONE (09:00)
[2016-12-31] MEDS: FAMOTIDINE 20 MG TAB PO SCH ×2 (09:00→20:33)
[2016-12-31] MEDS: CHOLECALCIFEROL (VIT D3) 1000 UNIT TAB PO SCH (09:00)
[2016-12-31] MEDS: SODIUM CHLORIDE 1 GRAM TAB PO SCH ×3 (09:00→17:57)
[2016-12-31] MEDS ORDERED: SODIUM CHLOR 0.9% 250 ML INJ 250 ML IV ONE (09:00)
[2016-12-31] MEDS: DOCUSATE SODIUM 50 MG/SENNA 8.6 MG TAB PO SCH ×2 (09:00→20:33)
[2016-12-31] MEDS: SODIUM CHLORIDE 0.9% FLUSH 10 ML FLUSH IV FLUSH SCH ×2 (09:05→20:36)
[2016-12-31] MEDS: ACETAMINOPHEN/HYDROcodone 325 MG/5 MG TAB PO PRN (12:09)
--- NOTE | 2016-12-31 12:26 | HHI.PR ---
Subjective Remarks Denies any CP or SOB. Patient continues with significant orthostatic hypotension. Patient stood at bedside and feels dizzy. Discussed with patient that she will be transfused blood. Objective Vital Signs Date Time Temp Pulse Resp B/P Pulse Ox O2 Delivery O2 Flow Rate FiO2 12/31/16 08:56 77 70/41 84 12/31/16 08:55 74 96/57 91 12/31/16 08:53 96.2 66 21 102/57 92 12/31/16 08:13 92 21 12/31/16 04:00 97.2 75 16 96/55 92 12/31/16 00:00 98.0 77 16 106/48 92 12/30/16 20:00 98.0 75 16 107/53 94 98/46 96/49 12/30/16 19:29 101/45 12/30/16 18:36 92 21 12/30/16 15:50 99.1 75 20 97/54 92 12/30/16 14:51 16 I/O 12/30/16 12/30/16 12/30/16 12/31/16 12/31/16 12/31/16 07:00 15:00 23:00 07:00 15:00 23:00 Intake Total 100 ml 420 ml Balance 100 ml 420 ml Intake Oral 420 ml Albumin 100 ml # Voids 4 2 # Bowel Movements 1 Result Diagram: 12/31/1640412/31/16404 Objective Remarks GENERAL: Alert and cooperative SKIN: Warm and dry. HEAD: Normocephalic. EYES: No scleral icterus. No injection or drainage. NECK: Supple, trachea midline. No JVD or lymphadenopathy. CARDIOVASCULAR: Regular rate and rhythm without murmurs, gallops, or rubs. RESPIRATORY: Breath sounds equal bilaterally. No accessory muscle use. GASTROINTESTINAL: Abdomen soft, non-tender, nondistended. MUSCULOSKELETAL: No cyanosis, or edema. BACK: Nontender without obvious deformity. No CVA tenderness. Medications and IVs Current Medications Medications (Trade) Dose Ordered Sig/Alma Route Start Time Stop Time Status Last Admin (NS Flush) 2 ml UNSCH PRN IV FLUSH 12/24/16 14:45 12/29/16 20:47 (NS Flush) 2 ml BID IV FLUSH 12/24/16 21:00 12/31/16 09:05 (Tylenol) 650 mg Q4H PRN PO 12/24/16 14:45 12/24/16 22:58 (Zofran Inj) 4 mg Q6H PRN IVP 12/24/16 14:45 12/30/16 11:07 (Narcan Inj) 0.4 mg UNSCH PRN IV 12/24/16 14:45 (Meryl-Colace) 1 tab BID PO 12/24/16 21:00 12/31/16 09:00 (Milk Of Magnesia Liq) 30 ml Q12H PRN PO 12/24/16 14:45 (Senokot) 17.2 mg Q12H PRN PO 12/24/16 14:45 (Dulcolax Supp) 10 mg DAILY PRN RECTAL 12/24/16 14:45 (Lactulose Liq) 30 ml DAILY PRN PO 12/24/16 14:45 (Vitamin D3) 1,000 units DAILY PO 12/25/16 09:00 12/31/16 09:00 (Synthroid) 50 mcg DAILY@06 PO 12/25/16 06:00 12/31/16 06:14 (Pepcid) 20 mg BID PO 12/25/16 09:00 12/31/16 09:00 ([place] 5-325 Mg) 1 tab Q4H PRN PO 12/25/16 12:00 12/31/16 12:09 (Declomycin) 300 mg Q12HR PO 12/26/16 00:25 12/31/16 09:00 (Heparin Central Flush) 250 units UNSCH PRN IV FLUSH 12/28/16 04:15 12/29/16 20:47 (Heparin Central Flush) 500 units UNSCH IV FLUSH 12/28/16 04:15 12/29/16 14:36 (NS Flush) 5 ml UNSCH PRN IV FLUSH 12/28/16 04:15 12/30/16 01:03 (Sodium Chloride) 1 gm TIDPC PO 12/28/16 09:30 12/31/16 09:00 Midodrine 10 mg 10 mg TID@07,12,17 PO 12/30/16 12:00 12/31/16 12:09 (NS 250 ml Inj) 250 ml @ 15 mls/hr ONCE ONCE IV 12/31/16 09:00 01/01/17 01:39 Assessment and Plan Problem List: (1) Orthostatic hypertension Status: Acute Plan: Patient with significant orthostatic hypotension. Lying down with B/P 119/67, Sitting 112/61 HR 90, and standing with B/P 82/47 HR 91 Reports that she feels dizzy when standing Midodrine increased today Cortrosyn given yesterday with Cortisol level of 38.6 today Discussed with Nephrology (2) Hyponatremia Status: Acute Plan: Sodium 132 On demeclocycline and sodium tablets Per note most likely due to SIADH and lung cancer patient Patient reports that she has been drinking excessive amount of water. fluid restriction ordered. (3) Neutropenia Status: Acute Plan: Resolved (4) Syncope Status: Acute Plan: Patient with hematoma on back of head. PT ordered recommending Rehab (5) Urinary tract infection Status: Acute Plan: Rocephin discontinue. Patient is asymptomatic and no culture indicated (6) Anemia Status: Acute Plan: Will monitor. HGB down to 7.8. Will transfuse total of 2 units of PRBC with dizziness and significant orthostatic hypotension. (7) Thrombocytopenia Status: Acute Plan: Plts improved at 67 this am. No active signs of bleeding. (8) Small cell lung cancer Status: Acute Plan: Patient scheduled for radiation today. Assessment and Plan Assessment and plan discussed with Dr. Doe. Discussed Condition With Nursing Discharge Planning Please have patient evaluated for [facility] and SNF discussed with manager dental Physician Attestation I and the VENDOR MANAGER have both examined this patient and reviewed this note and I agree with these findings and plan of care. Kelechi Doe DO Problem Qualifiers (1) Syncope: Qualified Code: R55 - Syncope, unspecified syncope type (2) Urinary tract infection: Cheryl Parra VENDOR MANAGER Dec 31, 2016 12:26
[2016-12-31] MEDS: ONDANSETRON HCL 4 MG/2 ML VIAL IVP PRN (18:19)
[2017-01-01 00:06] VITALS: BP 125/61; PULSE 74; RESP 16; TEMP 97.8; O2SAT 74
[2017-01-01 04:05] VITALS: BP 106/53; PULSE 70; RESP 20; TEMP 97.8; O2SAT 92
[2017-01-01 06:08] LABS: MEAN CELL VOLUME 80.3 FL (80.0-100.0); MEAN CORPUSCULAR HEMOGLOBIN 28.3 PG (27.0-34.0); MEAN CORPUSCULAR HGB CONC 35.2 % (32.0-36.0); PLATELET COUNT 93 TH/MM3 (150-450); RED BLOOD COUNT 3.36 MIL/MM3 (4.00-5.30); RED CELL DISTRIBUTION WIDTH 13.3 % (11.6-17.2); WHITE BLOOD COUNT 23.2 TH/MM3 (4.0-11.0)
[2017-01-01 06:18] LABS: REVIEW FLAG FINAL
[2017-01-01] MEDS: LEVOTHYROXINE SODIUM 50 MCG TAB PO SCH (06:24)
[2017-01-01] MEDS: MIDODRINE 5 MG TAB PO SCH ×3 (06:25→16:57)
[2017-01-01 06:31] LABS: BICARBONATE 25.7 MEQ/L (21.0-32.0); POTASSIUM 4.1 MEQ/L (3.5-5.1)
[2017-01-01 08:00] VITALS: BP_SYST 122; BP_SYST 78; BP_SYST 84; BP_DIAS 41; BP_DIAS 49; BP_DIAS 62; PULSE 65; RESP 18; TEMP 97.7; O2SAT 94
[2017-01-01] MEDS: DOCUSATE SODIUM 50 MG/SENNA 8.6 MG TAB PO SCH (08:37)
[2017-01-01] MEDS: CHOLECALCIFEROL (VIT D3) 1000 UNIT TAB PO SCH (08:38)
[2017-01-01] MEDS: SODIUM CHLORIDE 1 GRAM TAB PO SCH ×3 (08:38→16:56)
[2017-01-01] MEDS: DEMECLOCYCLINE HCL 150 MG TAB PO SCH (08:38)
[2017-01-01] MEDS: FAMOTIDINE 20 MG TAB PO SCH (08:38)
[2017-01-01] MEDS: SODIUM CHLORIDE 0.9% FLUSH 10 ML FLUSH IV FLUSH SCH (08:39)
--- NOTE | 2017-01-01 11:08 | PD.ONC.PN ---
Subjective Subjective Remarks Afebrile overnight. Patient resting in bed in nad. [place] better after blood transfusion yesterday. No dizziness today. Objective Data Date Time Temp Pulse Resp B/P Pulse Ox O2 Delivery O2 Flow Rate FiO2 01/01/17 08:00 97.7 65 18 122/62 94 84/49 78/41 01/01/17 04:05 97.8 70 20 106/53 92 01/01/17 00:06 97.8 74 16 125/61 74 12/31/16 22:31 21 12/31/16 20:35 Room Air 12/31/16 20:05 98.7 70 20 127/62 96 12/31/16 16:36 97.8 68 20 130/66 98 12/31/16 16:00 97.8 68 20 130/66 98 12/31/16 15:00 98 Nasal Cannula 2.00 12/31/16 14:05 97.2 97 20 109/60 98 12/31/16 13:43 98.0 67 20 127/60 90 12/31/16 12:20 96.9 74 20 100/50 92 Result Diagram: 01/01/17 0445 01/01/17 0445 Laboratory Results Laboratory Tests Test 12/31/16 12/31/16 01/01/17 12:06 12:26 04:45 Blood Type A POSITIVE Antibody Screen NEGATIVE Crossmatch Leukocyte-Reduced Leukocyte-Reduced Red Blood Red Blood Cells Cells Blood Bank Comment White Blood Count 23.2 TH/MM3 Red Blood Count 3.36 MIL/MM3 Hemoglobin 9.5 GM/DL Hematocrit 27.0 % Mean Corpuscular Volume 80.3 FL Mean Corpuscular Hemoglobin 28.3 PG Mean Corpuscular Hemoglobin 35.2 % Concent Red Cell Distribution Width 13.3 % Platelet Count 93 TH/MM3 Mean Platelet Volume 8.5 FL Sodium Level 136 MEQ/L Potassium Level 4.1 MEQ/L Chloride Level 101 MEQ/L Carbon Dioxide Level 25.7 MEQ/L Anion Gap 9 MEQ/L Blood Urea Nitrogen 11 MG/DL Creatinine 0.71 MG/DL Estimat Glomerular Filtration 80 ML/MIN Rate Random Glucose 87 MG/DL Calcium Level 9.2 MG/DL Administered Medications Medications (Trade) Dose Ordered Sig/[place]ma Route PRN Reason Start Time Stop Time Status Last Admin Dose Admin Sodium Chloride (NS Flush) 2 ml UNSCH PRN IV FLUSH FLUSH AFTER USING IV ACCESS 12/24/16 14:45 12/29/16 20:47 Sodium Chloride (NS Flush) 2 ml BID IV FLUSH 12/24/16 21:00 01/01/17 08:39 Acetaminophen (Tylenol) 650 mg Q4H PRN PO TEMP > 100.4 12/24/16 14:45 12/24/16 22:58 Ondansetron HCl (Zofran Inj) 4 mg Q6H PRN IVP NAUSEA OR VOMITING 12/24/16 14:45 12/31/16 18:19 Senna/Docusate Sodium (Meryl-Colace) 1 tab BID PO 12/24/16 21:00 01/01/17 08:37 Cholecalciferol (Vitamin D3) 1,000 units DAILY PO 12/25/16 09:00 01/01/17 08:38 Levothyroxine Sodium (Synthroid) 50 mcg DAILY@06 PO 12/25/16 06:00 01/01/17 06:24 Famotidine (Pepcid) 20 mg BID PO 12/25/16 09:00 01/01/17 08:38 Acetaminophen/ Hydrocodone Bitart ([place] 5-325 Mg) 1 tab Q4H PRN PO PAIN SCALE 5 TO 10 12/25/16 12:00 12/31/16 12:09 Demeclocycline HCl (Declomycin) 300 mg Q12HR PO 12/26/16 00:25 01/01/17 08:38 Heparin Sodium (Porcine) (Heparin Central Flush) 250 units UNSCH PRN IV FLUSH SEE PROTOCOL TABLE 12/28/16 04:15 12/29/16 20:47 Heparin Sodium (Porcine) (Heparin Central Flush) 500 units UNSCH IV FLUSH 12/28/16 04:15 12/29/16 14:36 Sodium Chloride (NS Flush) 5 ml UNSCH PRN IV FLUSH FLUSH INFUSAPORT PER PROTOCOL 12/28/16 04:15 12/30/16 01:03 Sodium Chloride (Sodium Chloride) 1 gm TIDPC PO 12/28/16 09:30 01/01/17 08:38 Midodrine (Proamatine) 10 mg TID@07,12,17 PO 12/30/16 12:00 6/23/17 06:25 Objective Remarks GENERAL: Elderly female, upright in bed. SKIN: Warm and dry. HEAD: Normocephalic. EYES: No injection or drainage. NECK: Supple, trachea midline. CARDIOVASCULAR: Regular rate and rhythm RESPIRATORY: Breath sounds equal bilaterally. No accessory muscle use. GASTROINTESTINAL: Abdomen soft, non-tender, nondistended. EXTREMITIES: No cyanosis NEUROLOGICAL: awake and alert, normal speech. moving all extremities. Assessment/Plan Problem List: (1) Small cell lung cancer Status: Acute Plan: 01/01: to [facility] rehab today. continue XRT. follow up in clinic upon dc. September 2016: diagnosis of SCLC made at [facility]. November 2016: started on XRT, received 5 treatments then moved to [facility] December 2016: 12/14: carbo/VP16 C1; saw Yuan who is planning to start XRT soon. (2) SIADH (syndrome of inappropriate ADH production) Status: Acute Plan: --nephrology following --on salt replacement tablets. (3) Thrombocytopenia Status: Acute Plan: --monitor and transfuse for platelet count less than 15K or bleeding (4) Anemia due to antineoplastic chemotherapy Status: Acute Plan: --monitor and transfuse for hgb<8mg/dL or bleeding Assessment 76 y/o female with SCLC admitted with hyponatremia and neutropenia. Admitted after syncopal episode. found to have SIADH h/o Compression fracture of the thoracic and lumbar spine. COPD. Hypothyroidism. Limited stage small cell lung cancer. Attending Statement feels better after PRBC denies dizziness sodium is normal. continue XRT OK to d/c to rehab The exam, history, and the medical decision-making described in the above note were completed with the assistance of the mid-level provider. I reviewed and agree with the findings presented. I attest that I had a [id number] encounter with the patient on the same day, and personally performed and documented my assessment and findings in the medical record. Dolores Guzman Jan 01, 2017 11:08 Domenic Rowley MD Jan 01, 2017 13:17
[2017-01-01] MEDS ORDERED: FAMO20TA2 PO (11:15)
[2017-01-01] MEDS ORDERED: DEME150T2 PO (11:15)
[2017-01-01] MEDS ORDERED: SODI1TAB PO (11:15)
[2017-01-01] MEDS ORDERED: MIDO5TAB PO (11:15)
[2017-01-01] MEDS ORDERED: SENN1TAB PO (11:15)
[2017-01-01] MEDS: ACETAMINOPHEN/HYDROcodone 325 MG/5 MG TAB PO PRN ×2 (11:19→16:56)
--- NOTE | 2017-01-01 11:20 | HHI.DS ---
Discharge Summary Admission Date Dec 24, 2016 at 15:11 Discharge Date: Jan 01, 2017 Admitting Diagnosis hYPONATREMIA NEUTROPNEIA SYNCOPE CLOSED HEAD INJURY (1) Orthostatic hypertension (2) Small cell lung cancer (3) SIADH (syndrome of inappropriate ADH production) (4) Thrombocytopenia (5) Anemia (6) Hyponatremia (7) Neutropenia (8) Closed head injury (9) Syncope Brief History Patient is a 76 year old female admitted s/p fall with hyponatremia, neutropenia , and syncope. Patient with a history of small cell lung cancer and is undergoing chemotherapy last treatment last week. She is also scheduled for radiation treatment. Yesterday patient felt weak and dizzy and then lost consciousness and fell hitting her head. On admission her sodium was 122. 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 3 % Hypertonic saline given overnight with sodium level at 129 this AM. Patients WBC also low and oncology was consulted for recommendations. Chest Xray with COPD and fibrotic appearing disease. Head CT with no evidence of acute intracranial trauma. CBC/BMP: 01/01/17 0445 01/01/17 0445 Significant Findings Laboratory Tests Test 12/30/16 12/31/16 01/01/17 04:20 04:05 04:45 White Blood Count 16.4 TH/MM3 27.1 TH/MM3 23.2 TH/MM3 (4.0-11.0) (4.0-11.0) (4.0-11.0) Red Blood Count 2.81 MIL/MM3 2.80 MIL/MM3 3.36 MIL/MM3 (4.00-5.30) (4.00-5.30) (4.00-5.30) Hemoglobin 8.0 GM/DL 7.8 GM/DL 9.5 GM/DL (11.6-15.3) (11.6-15.3) (11.6-15.3) Hematocrit 22.4 % 22.8 % 27.0 % (35.0-46.0) (35.0-46.0) (35.0-46.0) Mean Corpuscular Volume 79.7 FL (80.0-100.0) Platelet Count 33 TH/MM3 64 TH/MM3 93 TH/MM3 (150-450) (150-450) (150-450) Band Neutrophils % 22 % (0-6) 34 % (0-6) Monocytes % 12 % (0-8) Neutrophils # (Manual) 10.8 TH/MM3 19.8 TH/MM3 (1.8-7.7) (1.8-7.7) Metamyelocytes 4 % (0-1) Myelocytes 4 % (0-0) 3 % (0-0) Promyelocytes 1 % (0-0) 1 % (0-0) Blastocytes 1 % (0-0) Toxic Granulation 1+ (NORMAL) 1+ (NORMAL) Dohle Bodies PRESENT (NONE PRESENT (NONE SEEN) SEEN) Platelet Estimate LOW (NORMAL) LOW (NORMAL) Ovalocytes 1+ (NORMAL) Sodium Level 127 MEQ/L 132 MEQ/L (136-145) (136-145) Chloride Level 93 MEQ/L (98-107) Estimat Glomerular Filtration 80 ML/MIN (>89) Rate PE at Discharge GENERAL: Alert and cooperative SKIN: Warm and dry. HEAD: Normocephalic. EYES: No scleral icterus. No injection or drainage. NECK: Supple, trachea midline. No JVD or lymphadenopathy. CARDIOVASCULAR: Regular rate and rhythm without murmurs, gallops, or rubs. RESPIRATORY: Breath sounds equal bilaterally. No accessory muscle use. GASTROINTESTINAL: Abdomen soft, non-tender, nondistended. MUSCULOSKELETAL: No cyanosis, or edema. BACK: Nontender without obvious deformity. No CVA tenderness. Hospital Course Patient is a 76 year old female admitted s/p fall with hyponatremia, neutropenia , and syncope. Patient with a history of small cell lung cancer and is undergoing chemotherapy last treatment last week. She is also scheduled for radiation treatment. Yesterday patient felt weak and dizzy and then lost consciousness and fell hitting her head. On admission her sodium was 122. 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 3 % Hypertonic saline given overnight with sodium level at 129 this AM. Patients WBC also low and oncology was consulted for recommendations. Chest Xray with COPD and fibrotic appearing disease. Head CT with no evidence of acute intracranial trauma. Patient will be discharged to SNF. During her hospital stay she was followed by nephrology and oncology. Her hypernatremia has improved during her stay she is being discharged on democlozine and salt tablets. She has also had significant orthostatic hypotension and will need to be monitored cautiously. She is dishcharged on midodrine and jael stockings. She will need to continue her radiation treatment and follow up with oncology. The discharge has been reviewed with Dr. Doe. She will continue to be followed by Dr. Doe at the [facility]. Pt Condition on Discharge: Good Discharge Disposition: Discharge to SNF Discharge Instructions DIET: Follow Instructions for: As Tolerated, No Restrictions Activities you can perform: Regular-No Restrictions, See Additionl Instruction Additional Activity Instructio: Patient with orthostatic hypotension will need assistance with activity New Medications: Demeclocycline (Demeclocycline) 150 Mg Tab 300 MG PO Q12HR Electrolyte Replacement #60 TAB Famotidine (Famotidine) 20 Mg Tab 20 MG PO BID Indigestion #60 TAB Midodrine (Midodrine) 5 Mg Tab 10 MG PO TID@07,12,17 Blood Pressure Management #90 TAB Sennosides-Docusate Sodium (Senna Plus 8.6-50 mg) 1 Tab Tab 1 TAB PO BID Constipation #60 TAB Sodium Chloride (Sodium Chloride) 1 Gm Tab 1 GM PO TIDPC Electrolyte Replacement #90 TAB Continued Medications: Cholecalciferol (Vitamin D3) 1,000 Unit Tab 1000 UNITS PO DAILY Nutritional Supplement #1 Ref 0 BOTTLE Hydrocodone-Acetaminophen ([place]) 7.5-325 mg Tab 1 TAB PO Q8HR PRN PAIN Ref 0 TAB Ipratropium-Albuterol Neb (Duoneb) 0.5-2.5 Mg/3 Ml Neb 3 ML NEB Q6HR PRN SHORTNESS OF BREATH #30 Ref 0 NEBULE Levothyroxine (Levothyroxine) 50 Mcg Tab 50 MCG PO DAILY Thyroid #30 Ref 0 TAB Tramadol (Tramadol) 50 Mg Tab 50 MG PO Q6H PRN PAIN Ref 0 TAB Discontinued Medications: ([Salt Tablet]) 1 TAB PO DAILY Cheryl Parra Jan 01, 2017 11:20
[2017-01-01] MEDS ORDERED: OXYGENDME NAS.CANULA (11:22)
[2017-01-01 12:00] VITALS: BP_SYST 106; BP_SYST 107; BP_SYST 115; BP_DIAS 53; BP_DIAS 59; BP_DIAS 60; PULSE 71; RESP 18; TEMP 97.3; O2SAT 95
[2017-01-01 16:00] VITALS: BP 110/57; PULSE 66; RESP 18; TEMP 96.9; O2SAT 94
== END 2017-01-01 17:03 | DRG 312 ==
LOC: NEPE 10:18 → NEDA 15:11 → NEDH 19:24 → NEPHCDU 22:11 → HOCB 12-25 15:22
PROVIDERS: ADMIT Family Medicine; ATTEND Family Medicine
PROC: 30253N1 (ICD-10-PCS; principal; 2016-12-24)
DX: I95.1 Orthostatic hypotension (principal); E87.0 Hyperosmolality and hypernatremia; E22.2 Syndrome of inappropriate secretion of antidiuretic hormone; D69.6 Thrombocytopenia, unspecified; C34.90 Malignant neoplasm of unspecified part of unspecified bronchus or lung; J44.9 Chronic obstructive pulmonary disease, unspecified; N39.0 Urinary tract infection, site not specified; M48.54XA Collapsed vertebra, not elsewhere classified, thoracic region, initial encounter for fracture; D64.81 Anemia due to antineoplastic chemotherapy; D70.9 Neutropenia, unspecified; I10 Essential (primary) hypertension; R55 Syncope and collapse; E03.9 Hypothyroidism, unspecified; F17.200 Nicotine dependence, unspecified, uncomplicated; W19.XXXA Unspecified fall, initial encounter; G89.29 Other chronic pain; Y92.9 Unspecified place or not applicable; S00.03XA Contusion of scalp, initial encounter; T45.1X5A Adverse effect of antineoplastic and immunosuppressive drugs, initial encounter
CPT/HCPCS: 36430; 70450; 71010; 72050; 77386; 77387; 80048; 80053; 81001; 82306; 82533; 82550; 83735; 83930; 83935; 84134; 84300; 84439; 84443; 84484; 85007; 85027; 85610; 85730; 86850; 86900; 86901; 86920; 87040; 87086; 93005; 94620; 94664; 96361; 96374; 96375; J0696; J0834; J1442; J1642; J2405; J3370; J7030; J7050; P9016; P9047

== ENCOUNTER 2017-03-02 09:50 | Inpatient (IN) | payer MEDICARE, MEDICAID ==
[~2017-03-02] VITALS: Ht 154.9 cm; Wt 57.8 kg
[~2017-03-02 09:50] MED LIST: DEME150T2 PO; FAMO20TA2 PO; HYDR-3288 PO; IPRASOL NEB; LEVO50TA4 PO; MIDO5TAB PO; OXYGENDME NAS.CANULA; SENN1TAB PO; SODI1TAB PO; TRAM50TA PO; VITA100018 PO
[2017-03-02 09:51] VITALS: BP 119/68; PULSE 107; RESP 20; TEMP 97.7; O2SAT 94
[2017-03-02] MEDS ORDERED: HYDR-3366 PO (10:12)
--- NOTE | 2017-03-02 10:40 | PD ---
HPI Chief Complaint: Back/ Neck Pain or Injury Time Seen by Provider: 10:14 Travel History International Travel<30 days: No Contact w/Intl Traveler<30days: No Traveled to known affect area: No History of Present Illness HPI 76yo F with PMH of lung CA s/p radiation therapy and now on chemotherapy presents to the ED with c/o back pain since last week. Pt states she rolled off the bed last week and has been that is midline and worst with movement in mid thoracic and upper lumbar spine region. Denies any head trauma, fever, chest pain, sob, n/v, abdominal pain, focal weakness or numbness. Pt follows with Dr. Carrero and last chemo was 02/17/17. PFSH Past Medical History Arthritis: Yes Asthma: No Autoimmune Disease: No Anxiety: Yes Depression: Yes Cancer: Yes (Lung currently on Chemo) Cardiovascular Problems: No Chemotherapy: Yes COPD: Yes Diabetes: No Endocrine: Yes Genitourinary: No Immune Disorder: No Implanted Vascular Access Dvce: Yes (port) Musculoskeletal: Yes Neurologic: No Psychiatric: Yes Reproductive: No Respiratory: Yes Radiation Therapy: Yes (complete) Sleep Apnea: No Thyroid Disease: Yes (Carlso's) Influenza Vaccination: Yes Past Surgical History Abdominal Surgery: No AICD: No Arteriovenous Shunt: No Cardiac Surgery: No Ear Surgery: No Endocrine Surgery: No Eye Surgery: No Genitourinary Surgery: No Gynecologic Surgery: No Insulin Pump: No Joint Replacement: No Oral Surgery: No Pacemaker: No Thoracic Surgery: No Other Surgery: Yes (Insertion of port, otherwise no other surgeries.) Social History Alcohol Use: No Tobacco Use: Yes (0.5ppd) Substance Use: No Allergies-Medications (Allergen,Severity, Reaction): Coded Allergies: shellfish derived (Unverified Allergy, Unknown, 02/23/17) Reported Meds & Prescriptions Reported Meds & Active Scripts Active Sodium Chloride 1 Gm Tab 1 Gm PO TIDPC Demeclocycline (Demeclocycline HCl) 150 Mg Tab 300 Mg PO Q12HR Reported [place] (Hydrocodone-Acetaminophen) 10-325 Mg Tab 1 Tab PO Q4H PRN Vitamin D3 (Cholecalciferol) 1,000 Unit Tab 1,000 Units PO DAILY Levothyroxine (Levothyroxine Sodium) 50 Mcg Tab 50 Mcg PO DAILY Duoneb (Ipratropium-Albuterol Neb) 0.5-2.5 Mg/3 Ml Neb 3 Ml NEB Q6HR PRN Review of Systems Except as stated in HPI: all other systems reviewed are Neg Physical Exam Narrative GENERAL: 76yo F in mild distress. SKIN: Focused skin assessment warm/dry. HEAD: Atraumatic. Normocephalic. EYES: Pupils equal and round. No scleral icterus. No injection or drainage. ENT: No nasal bleeding or discharge. Mucous membranes pink and moist. NECK: No midline ttp. CARDIOVASCULAR: Regular rate and rhythm. No murmur appreciated. RESPIRATORY: No accessory muscle use. Clear to auscultation. Breath sounds equal bilaterally. GASTROINTESTINAL: Abdomen soft, non-tender, nondistended. No rebound tenderness or guarding. BACK: +TTP T9-12, L1-L2. Old ecchymoses in right scapula. MUSCULOSKELETAL: No obvious deformities. No clubbing. No cyanosis. No edema. NEUROLOGICAL: Awake and alert. No obvious cranial nerve deficits. Motor grossly within normal limits. Normal speech. PSYCHIATRIC: Appropriate mood and affect; insight and judgment normal. Data Data Last Documented VS Vital Signs Date Time Temp Pulse Resp B/P (MAP) Pulse Ox O2 Delivery O2 Flow Rate FiO2 03/02/17 11:00 16 03/02/17 09:51 97.7 107 119/68 (85) 94 Room Air Orders Orders Ct Thor Spine W/O Contrast (03/02/17 ) Ct Lumb Spine W/O Contrast (03/02/17 ) Morphine Inj (Morphine Inj) (03/02/17 10:45) Morphine Inj (Morphine Inj) (03/02/17 12:15) Morphine Inj (Morphine Inj) (03/02/17 13:00) Admit Order (Ed Use Only) (03/02/17 13:24) MDM Medical Decision Making Medical Screen Exam Complete: Yes Emergency Medical Condition: Yes Differential Diagnosis Pathologic fractures vs. metastasis Narrative Course 76yo F with PMH of old fractures here with back pain. No neurologic deficits. No fever. She did roll over from her bed a week ago. CT LS showed chronic compression fractures to the superior and plate of T12 with some loss of height in inferior endplate of L2. No acute injury. CT LS showed multiple chronic compression fractures. Pt has been given multiple doses of IV morphine with only mild improvement of pain. States she is unable to walk. Discussed with Dr. Doe's PA and accepted to his service for intractable pain and likely physical therapy. Diagnosis Primary Impression: Intractable back pain Admitting Information Admitting Physician Requests: Lubna Tello DO Mar 02, 2017 10:40
[2017-03-02] MEDS ORDERED: MORPHINE SULFATE 4 MG/ML INJ IV PUSH ONE ×3 (10:45→13:00)
--- NOTE | 2017-03-02 11:32 | RADRPT ---
EXAM DATE/TIME: 03/02/2017 10:53 [facility] COMPARISON: No previous studies available for comparison. INDICATIONS : Rolled off bed 12 days ago, still complains of back pain RADIATION DOSE: 35.86 CTDIvol (mGy) ; Combined studies - Thoracic Spine/Lumbar Spine MEDICAL HISTORY : Chronic obstructive pulmonary disease. Carcinoma, lung. SURGICAL HISTORY : None. ENCOUNTER: Initial ACUITY: 2 weeks PAIN SCALE: 8/10 LOCATION: Bilateral Thoracic spine TECHNIQUE: Volumetric scanning of the thoracic spine was performed. Multiplanar reconstructions in the sagittal , coronal and oblique axial planes were performed. Using automated exposure control and adjustment o f the mA and/or kV according to patient size, radiation dose was kept as low as reasonably achievable to obtain optimal diagnostic quality images. DICOM format image data is available electronically f or review and comparison. FINDINGS: Multiple compression deformities are observed. No cortical or trabecular irregularity is appreciated. No linear lucencies observed. Compression fractures are seen involving T1, T5, T6, T8, and T12. Mild retropulsion of the posterior cortical margin of T12. No central canal stenosis noted. Diffuse osteo penia observed. Exaggeration of the kyphosis centered at T6. T1-T2: Normal. T2-T3: The thecal sac has a normal diameter. No evidence of disc bulge or protrusion. T3-T4: The thecal sac has a normal diameter. No evidence of disc bulge or protrusion. T4-T5: The thecal sac has a normal diameter. No evidence of disc bulge or protrusion. T5-T6: The thecal sac has a normal diameter. No evidence of disc bulge or protrusion. T6-T7: The thecal sac has a normal diameter. No evidence of disc bulge or protrusion. T7-T8: The thecal sac has a normal diameter. No evidence of disc bulge or protrusion. T8-T9: The thecal sac has a normal diameter. No evidence of disc bulge or protrusion. T9-T10: The thecal sac has a normal diameter. No evidence of disc bulge or protrusion. T10-T11: The thecal sac has a normal diameter. No evidence of disc bulge or protrusion. T11-T12: The thecal sac has a normal diameter. No evidence of disc bulge or protrusion. T12-L1: The thecal sac has a normal diameter. No evidence of disc bulge or protrusion. CONCLUSION: Multiple chronic compression deformities. No acute compression deformity seen. Mendez Stephen Jr., MD on March 02, 2017 at 11:23 Board Certified Radiologist. This report was verified electronically.
--- NOTE | 2017-03-02 12:03 | RADRPT ---
EXAM DATE/TIME: 03/02/2017 10:53 [facility] COMPARISON: No previous studies available for comparison. INDICATIONS : Rolled off bed 12 days ago, still complains of back pain RADIATION DOSE: 35.86 CTDIvol (mGy) ; Combined studies - Thoracic Spine/Lumbar Spine MEDICAL HISTORY : Chronic obstructive pulmonary disease. Carcinoma, lung. SURGICAL HISTORY : None. ENCOUNTER: Initial ACUITY: 2 weeks PAIN SCALE: 8/10 LOCATION: Bilateral [place] TECHNIQUE: Volumetric scanning of the lumbar spine was performed. Multiplanar reconstructions in the sagittal, coronal and oblique axial planes were performed. Using automated exposure control and adjustment of the mA and/or kV according to patient size, radiation dose was kept as low as reasonably achievable t o obtain optimal diagnostic quality images. DICOM format image data is available electronically for review and comparison. FINDINGS: Sagittal and coronal reconstructions show chronic compression fracture superior endplate T12. There i s overall loss of height of the inferior plate of L2 with central loss of height inferiorly at L2 sup eriorly at L3 and inferiorly at L4 characteristic of central herniations or Schmorl's nodes. I do not see an acute fracture or listhesis. Spinal canal appears to be adequate throughout. Also noted are s ubcentimeter nodules in both adrenal glands characteristic of small adenomas. Detailed axial images a s follows: T12-L1: Mild, diffuse disc bulge. Spinal canal and neural foramina are adequate L1-L2: Diffuse disc bulge. Spinal canal and neural from adequate L2-L3: Mild, diffuse disc bulge. Spinal canal and neural foramina are adequate L3-L4: The thecal sac has a normal diameter. No evidence of disc bulge or protrusion. The neural foramina are patent bilaterally. L4-L5: Facet hypertrophy with mild, diffuse disc bulge. Spinal canal and neural foramina are adequate L5-S1: Facet hypertrophy. Spinal canal and neural foramina are patent CONCLUSION: 1. Chronic compression fractures to the superior and plate of T12 with some loss of height of the inf erior endplate of L2 also with a chronic appearance. No acute injury. 2. Central disc herniation into the endplates inferiorly at L2 and L4 and superiorly at L3 characteri stic of prominent Schmorl's nodes. 3. Despite degenerative disc disease and some facet hypertrophy, probably the spinal canal and neural foramina are adequate throughout without nerve root compromise. 4. Probable subcentimeter bilateral adrenal adenomas. Sanford Llanes MD on March 02, 2017 at 11:53 Board Certified Radiologist. This report was verified electronically.
[2017-03-02] MEDS ORDERED: ONDANSETRON HCL 4 MG/2 ML VIAL IVP PRN (14:00)
[2017-03-02] MEDS ORDERED: RESP: ALBUTEROL 2.5 MG/IPRATROPIUM 0.5 MG NEB (PRN) NEB (14:00)
[2017-03-02] MEDS ORDERED: SENNOSIDES 8.6 MG TAB PO PRN (14:00)
[2017-03-02] MEDS ORDERED: NALOXONE HCL 0.4 MG/ML AMP IV PRN (14:00)
[2017-03-02] MEDS ORDERED: LACTULOSE SYRUP 20 GM/30 ML CUP PO PRN (14:00)
[2017-03-02] MEDS ORDERED: SODIUM CHLORIDE 0.9% FLUSH 10 ML FLUSH IV FLUSH PRN (14:00)
[2017-03-02] MEDS ORDERED: MAGNESIUM HYDROXIDE SUSP 30 ML CUP PO PRN (14:00)
[2017-03-02] MEDS ORDERED: BISACODYL 10 MG SUPP RECTAL PRN (14:00)
[2017-03-02 14:50] VITALS: BP 123/63; PULSE 85; RESP 20; O2SAT 96
[2017-03-02] MEDS: ACETAMINOPHEN/HYDROcodone 325 MG/10 MG TAB PO PRN ×2 (15:18→20:48)
[2017-03-02 15:28] VITALS: PULSE 100; RESP 18; O2SAT 95
[2017-03-02] MEDS: SODIUM CHLORIDE 1 GRAM TAB PO SCH (18:30)
[2017-03-02 18:34] VITALS: BP 118/84; PULSE 83; RESP 18; TEMP 96.5; O2SAT 92
[2017-03-02 20:00] VITALS: BP 135/71; PULSE 86; RESP 16; TEMP 97.1; O2SAT 92
[2017-03-02] MEDS: DOCUSATE SODIUM 50 MG/SENNA 8.6 MG TAB PO SCH (20:09)
[2017-03-02] MEDS: DEMECLOCYCLINE HCL 150 MG TAB PO SCH (20:48)
[2017-03-02] MEDS: SODIUM CHLORIDE 0.9% FLUSH 10 ML FLUSH IV FLUSH SCH (20:49)
--- NOTE | 2017-03-02 23:03 | HHI.HP ---
History of Present Illness Primary Care Physician Kelechi Doe, DO Admission Diagnosis Intractable pain Diagnoses: (1) Small cell lung cancer Review of Systems Musculoskeletal: COMPLAINS OF: Back pain Past Family Social History Allergies: Coded Allergies: shellfish derived (Unverified Allergy, Unknown, 02/23/17) Past Medical History lung cancer hypertension Past Surgical History left shoulder surgery Reported Medications Reported Meds & Active Scripts Active Sodium Chloride 1 Gm Tab 1 Gm PO TIDPC Demeclocycline (Demeclocycline HCl) 150 Mg Tab 300 Mg PO Q12HR Reported [place] (Hydrocodone-Acetaminophen) 10-325 Mg Tab 1 Tab PO Q4H PRN Vitamin D3 (Cholecalciferol) 1,000 Unit Tab 1,000 Units PO DAILY Levothyroxine (Levothyroxine Sodium) 50 Mcg Tab 50 Mcg PO DAILY Duoneb (Ipratropium-Albuterol Neb) 0.5-2.5 Mg/3 Ml Neb 3 Ml NEB Q6HR PRN Active Ordered Medications Inpatient Medications Acetaminophen/ Hydrocodone Bitart ([place] 10-325 Mg) 1 tab Q4H PRN PO PAIN 1-10 Last administered on 03/02/17 20:48; Start 03/02/17 at 14:00 Albuterol/ Ipratropium (Duoneb Neb) 1 ampule Q6HR NEB PRN NEB SHORTNESS OF BREATH; Start 03/02/17 at 14:00 Bisacodyl (Dulcolax Supp) 10 mg DAILY PRN RECTAL SEVERE CONSITIPATION; Start at 14:00 Cholecalciferol (Vitamin D3) 1,000 units DAILY PO ; Start 03/03/17 at 09:00 Demeclocycline HCl (Declomycin) 300 mg Q12HR PO Last administered on 03/02/17 20:48; Start 03/02/17 at 21:00 Lactulose (Lactulose Liq) 30 ml DAILY PRN PO SEVERE CONSITIPATION; Start at 14:00 Levothyroxine Sodium (Synthroid) 50 mcg DAILY@0600 PO ; Start 03/03/17 at 06:00 Magnesium Hydroxide (Milk Of Magnesia Liq) 30 ml Q12H PRN PO MILD - MODERATE CONSTIPATION; Start 03/02/17 at 14:00 Morphine Sulfate (Morphine Inj) 4 mg ONCE ONCE IV PUSH Last administered on 13:17; Start 03/02/17 at 13:00; Stop 03/02/17 at 13:01; Status DC Naloxone HCl (Narcan Inj) 0.4 mg UNSCH PRN IV SEE LABEL COMMENTS; Start at 14:00 Ondansetron HCl (Zofran Inj) 4 mg Q6H PRN IVP NAUSEA OR VOMITING; Start at 14:00 Senna/Docusate Sodium (Meryl-Colace) 1 tab BID PO ; Start 03/02/17 at 21:00 Sennosides (Senokot) 17.2 mg Q12H PRN PO MODERATE - SEVERE CONSTIPATION; Start 03/02/17 at 14:00 Sodium Chloride (NS Flush) 2 ml BID IV FLUSH Last administered on 03/02/17 20: 49; Start 03/02/17 at 21:00 Sodium Chloride (Sodium Chloride) 1 gm TIDPC PO Last administered on 03/02/17 18:30; Start 03/02/17 at 18:30 Family History father of alzheimers disease mother with diabetes and cva Social History non smoker non drinker Physical Exam Vital Signs Vital Signs Date Time Temp Pulse Resp B/P (MAP) Pulse Ox O2 Delivery O2 Flow Rate FiO2 03/02/17 20:00 97.1 86 16 135/71 (92) 92 03/02/17 18:52 03/02/17 18:34 96.5 83 18 118/84 (95) 92 03/02/17 17:19 16 03/02/17 15:28 100 18 95 03/02/17 14:50 85 20 123/63 (83) 96 Room Air 03/02/17 14:18 16 03/02/17 13:51 17 03/02/17 11:00 16 03/02/17 09:51 97.7 107 20 119/68 (85) 94 Room Air Physical Exam GENERAL: This is a frail white female SKIN: No rashes, ecchymoses or lesions. Cool and dry. HEAD: Atraumatic. Normocephalic. No temporal or scalp tenderness. EYES: Pupils equal round and reactive. Extraocular motions intact. No scleral icterus. No injection or drainage. ENT: Nose without bleeding, purulent drainage or septal hematoma. Throat without erythema, tonsillar hypertrophy or exudate. Uvula midline. Airway patent. NECK: Trachea midline. No JVD or lymphadenopathy. Supple, nontender, no meningeal signs. CARDIOVASCULAR: Regular rate and rhythm without murmurs, gallops, or rubs. RESPIRATORY: diminished with a few rhonchi GASTROINTESTINAL: Abdomen soft, non-tender, nondistended. No hepato-splenomegaly , or palpable masses. No guarding. MUSCULOSKELETAL: Extremities without clubbing, cyanosis, or edema. No joint tenderness, effusion, or edema noted.lumbar tenderness noted NEUROLOGICAL: Awake and alert. Cranial nerves II through XII intact. Motor and sensory grossly within normal limits. Five out of 5 muscle strength in all muscle groups. Normal speech. Imaging Last 72 hours Impressions Thoracic Spine CT 03/02/17 0000 Signed Impressions: Service Date/Time: Thursday, March 02, 2017 10:53 - CONCLUSION: Multiple chronic compression deformities. No acute compression deformity seen. MD Yanely Lara Jr. VTE Risk Assessment Caprini VTE Risk Assessment: No/Low Risk (score <= 1) Caprini Risk Assessment Model Point Value = 1 Point Value = 2 Point Value = 3 Point Value = 5 Age 41-60 Minor surgery BMI > 25 kg/m2 Swollen legs Varicose veins or History of unexplained or recurrent spontaneous Oral contraceptives or hormone replacement Sepsis (< 1 month) Serious lung disease, including pneumonia (< 1 month) Abnormal pulmonary function Acute myocardial infarction Congestive heart failure (< 1 month) History of inflammatory bowel disease Medical patient at bed rest Age 61-74 Arthroscopic surgery Major open surgery (> 45 min) Laparoscopic surgery (> 45 min) Malignancy Confined to bed (> 72 hours) Immobilizing plaster cast Central venous access Age >= 75 History of VTE Family history of VTE Factor V Leiden Prothrombin [id number] Lupus anticoagulant Anticardiolipin antibodies Elevated serum homocysteine Heparin-induced thrombocytopenia Other congenital or acquired thrombophilia Stroke (< 1 month) Elective arthroplasty Hip, pelvis, or leg fracture Acute spinal cord injury (< 1 month) Prophylaxis Regimen Total Risk Factor Score Risk Level Prophylaxis Regimen 0-1 Low Early ambulation 2 Moderate Order ONE of the following: *Sequential Compression Device (SCD) *Heparin 5000 units SQ BID 3-4 Higher Order ONE of the following medications: *Heparin 5000 units SQ TID *Enoxaparin/Lovenox 40 mg SQ daily (WT < 150 kg, CrCl > 30 mL/min) *Enoxaparin/Lovenox 30 mg SQ daily (WT < 150 kg, CrCl > 10-29 mL/min) *Enoxaparin/Lovenox 30 mg SQ BID (WT < 150 kg, CrCl > 30 mL/min) AND/OR *Sequential Compression Device (SCD) 5 or more Highest Order ONE of the following medications: *Heparin 5000 units SQ TID (Preferred with Epidurals) *Enoxaparin/Lovenox 40 mg SQ daily (WT < 150 kg, CrCl > 30 mL/min) *Enoxaparin/Lovenox 30 mg SQ daily (WT < 150 kg, CrCl > 10-29 mL/min) *Enoxaparin/Lovenox 30 mg SQ BID (WT < 150 kg, CrCl > 30 mL/min) AND *Sequential Compression Device (SCD) Assessment and Plan Problem List: (1) Back pain ICD Codes: M54.9 - Dorsalgia, unspecified (2) Hypertension ICD Codes: I10 - Essential (primary) hypertension Assessment and Plan hypertension will add catapress patch if further control needed back pain will add lyrica Discussed Condition With patient Discharge Planning home Kelechi Doe DO Mar 02, 2017 23:03
[2017-03-03] VITALS: BP 98/50; PULSE 90; RESP 16; TEMP 99.5; O2SAT 90
[2017-03-03 04:00] VITALS: BP 117/60; PULSE 85; RESP 16; TEMP 98.9; O2SAT 90
[2017-03-03] MEDS: LEVOTHYROXINE SODIUM 50 MCG TAB PO SCH (05:24)
[2017-03-03] MEDS: ACETAMINOPHEN/HYDROcodone 325 MG/10 MG TAB PO PRN ×5 (05:25→22:05)
[2017-03-03 08:00] VITALS: BP 118/61; PULSE 78; RESP 16; TEMP 95.1; O2SAT 92
[2017-03-03] MEDS: DOCUSATE SODIUM 50 MG/SENNA 8.6 MG TAB PO SCH ×2 (09:00→21:00)
[2017-03-03] MEDS: DEMECLOCYCLINE HCL 150 MG TAB PO SCH ×2 (09:24→22:04)
[2017-03-03] MEDS: CHOLECALCIFEROL (VIT D3) 1000 UNIT TAB PO SCH (09:25)
[2017-03-03] MEDS: SODIUM CHLORIDE 1 GRAM TAB PO SCH ×3 (09:30→17:37)
[2017-03-03] MEDS: SODIUM CHLORIDE 0.9% FLUSH 10 ML FLUSH IV FLUSH SCH ×2 (09:30→22:12)
[2017-03-03 10:12] LABS: HEMATOCRIT 34.4 % (35.0-46.0); MEAN CELL VOLUME 90.5 FL (80.0-100.0); MEAN CORPUSCULAR HEMOGLOBIN 30.2 PG (27.0-34.0); MEAN CORPUSCULAR HGB CONC 33.4 % (32.0-36.0); PLATELET COUNT 53 TH/MM3 (150-450); RED CELL DISTRIBUTION WIDTH 16.9 % (11.6-17.2); WHITE BLOOD COUNT 1.8 TH/MM3 (4.0-11.0)
[2017-03-03 10:16] LABS: REVIEW FLAG FINAL
[2017-03-03 10:23] LABS: ANION GAP 8 MEQ/L (5-15); AST (GOT) 12 U/L (15-37); BICARBONATE 23.6 MEQ/L (21.0-32.0); CHLORIDE 102 MEQ/L (98-107); GLOMERULAR FILTRATION RATE 95 ML/MIN (>89); POTASSIUM 4.1 MEQ/L (3.5-5.1); SODIUM (NA) 134 MEQ/L (136-145)
[2017-03-03 10:24] LABS: ALT (GPT) 17 U/L (10-53)
[2017-03-03 10:26] LABS: ALKALINE PHOSPHATASE 71 U/L (45-117); TOTAL BILIRUBIN ADULT 0.6 MG/DL (0.2-1.0)
--- NOTE | 2017-03-03 10:47 | HHI.PR ---
Subjective Remarks Patient seen at bedside. Denies and CP or SOB. Complains of back pain and reports falls at home. Objective Vital Signs Date Time Temp Pulse Resp B/P (MAP) Pulse Ox O2 Delivery O2 Flow Rate FiO2 03/03/17 08:00 95.1 78 16 118/61 (80) 92 03/03/17 04:00 98.9 85 16 117/60 (79) 90 03/03/17 00:00 99.5 90 16 98/50 (66) 90 03/02/17 20:00 97.1 86 16 135/71 (92) 92 03/02/17 18:52 03/02/17 18:34 96.5 83 18 118/84 (95) 92 03/02/17 17:19 16 03/02/17 15:28 100 18 95 03/02/17 14:50 85 20 123/63 (83) 96 Room Air 03/02/17 14:18 16 03/02/17 13:51 17 03/02/17 11:00 16 I/O 03/02/17 03/02/17 03/02/17 03/03/17 03/03/17 03/03/17 07:00 15:00 23:00 07:00 15:00 23:00 Intake Total 120 ml Balance 120 ml Intake Oral 120 ml # Voids 2 1 Result Diagram: 03/03/17 1000 Imaging Last 72 hours Impressions Thoracic Spine CT 03/02/17 0000 Signed Impressions: Service Date/Time: Thursday, March 02, 2017 10:53 - CONCLUSION: Multiple chronic compression deformities. No acute compression deformity seen. Mendez Stephen Jr., MD Lumbar Spine CT 03/02/17 0000 Signed Impressions: Service Date/Time: Thursday, March 02, 2017 10:53 - CONCLUSION: 1. Chronic compression fractures to the superior and plate of T12 with some loss of height of the inferior endplate of L2 also with a chronic appearance. No acute injury. 2. Central disc herniation into the endplates inferiorly at L2 and L4 and superiorly at L3 characteristic of prominent Schmorl's nodes. 3. Despite degenerative disc disease and some facet hypertrophy, probably the spinal canal and neural foramina are adequate throughout without nerve root compromise. 4. Probable subcentimeter bilateral adrenal adenomas. Sanford Llanes MD Objective Remarks GENERAL: Alert and cooperative SKIN: Warm and dry. HEAD: Normocephalic. EYES: No scleral icterus. No injection or drainage. NECK: Supple, trachea midline. No JVD or lymphadenopathy. CARDIOVASCULAR: Regular rate and rhythm without murmurs, gallops, or rubs. RESPIRATORY: Breath sounds equal bilaterally. No accessory muscle use. GASTROINTESTINAL: Abdomen soft, non-tender, nondistended. MUSCULOSKELETAL: No cyanosis, or edema. BACK: Nontender without obvious deformity. No CVA tenderness. Medications and IVs Current Medications Medications (Trade) Dose Ordered Sig/[place] Route Start Time Stop Time Status Last Admin (NS Flush) 2 ml UNSCH PRN IV FLUSH 03/02/17 14:00 (NS Flush) 2 ml BID IV FLUSH 03/02/17 21:00 03/03/17 09:30 (Zofran Inj) 4 mg Q6H PRN IVP 03/02/17 14:00 (Narcan Inj) 0.4 mg UNSCH PRN IV 03/02/17 14:00 (Meryl-Colace) 1 tab BID PO 03/02/17 21:00 (Milk Of Magnesia Liq) 30 ml Q12H PRN PO 03/02/17 14:00 (Senokot) 17.2 mg Q12H PRN PO 03/02/17 14:00 (Dulcolax Supp) 10 mg DAILY PRN RECTAL 03/02/17 14:00 (Lactulose Liq) 30 ml DAILY PRN PO 03/02/17 14:00 (Vitamin D3) 1,000 units DAILY PO 03/03/17 09:00 03/03/17 09:25 (Declomycin) 300 mg Q12HR PO 03/02/17 21:00 03/03/17 09:24 ([place] 10-325 Mg) 1 tab Q4H PRN PO 03/02/17 14:00 03/03/17 09:26 (Duoneb Neb) 1 ampule Q6HR NEB PRN NEB 03/02/17 14:00 (Synthroid) 50 mcg DAILY@0600 PO 03/03/17 06:00 03/03/17 05:24 (Sodium Chloride) 1 gm TIDPC PO 03/02/17 18:30 03/03/17 09:30 (Lyrica) 75 mg Q12HR PO 03/03/17 09:00 Assessment and Plan Problem List: (1) Compression fracture of spine ICD Codes: M48.50XA - Collapsed vertebra, not elsewhere classified, site unspecified, initial encounter for fracture (2) Hypothyroid ICD Codes: E03.9 - Hypothyroidism, unspecified (3) Pancytopenia ICD Codes: D61.818 - Other pancytopenia (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 Reports that she feel this weekend. CT of lumbar and thoracic region done. Multiple chronic compression fx noted and disc herniation. Ortho consulted for recommendations. On [place] and Lyrica for pain. PT ordered Pancytopenia Patient with small cell lung carcinoma. WBC 1.8, HGB 11.5 and Plts of 53. Will continue to monitor. Hematology consulted Hypothyroidism continue replacement. TSH level pending SIADH Patient is on demeclocycline. Sodium levels pending this am. I and the [facility] have both examined this patient and reviewed this note and I agree with these findings and plan of care. Kelechi Doe DO Discussed Condition With Nursing Discharge Planning Discharge home with family and [facility] Cheryl Parra [facility] Mar 03, 2017 10:47
[2017-03-03 10:54] LABS: BLOOD UREA NITROGEN 14 MG/DL (7-18)
[2017-03-03 10:55] LABS: MAGNESIUM 2.2 MG/DL (1.5-2.5)
[2017-03-03] MEDS: PREGABALIN 75 MG CAP PO SCH ×2 (11:49→22:04)
[2017-03-03 12:00] VITALS: BP_SYST 109; BP_SYST 90; BP_SYST 99; BP_DIAS 55; BP_DIAS 58; BP_DIAS 65; PULSE 82; RESP 18; TEMP 96.9; O2SAT 92
[2017-03-03 18:00] VITALS: BP 95/61; PULSE 77; RESP 18; TEMP 96.7; O2SAT 94
[2017-03-03 20:00] VITALS: BP 122/73; PULSE 79; RESP 18; TEMP 97.2; O2SAT 90
[2017-03-04] VITALS: BP 118/68; PULSE 86; RESP 18; TEMP 97.1; O2SAT 90
[2017-03-04] MEDS ORDERED: FAMOTIDINE 20 MG TAB PO PRN (01:15)
[2017-03-04] MEDS: ACETAMINOPHEN/HYDROcodone 325 MG/10 MG TAB PO PRN ×6 (01:45→22:20)
[2017-03-04 04:00] VITALS: BP 120/65; PULSE 80; RESP 18; TEMP 97; O2SAT 90
[2017-03-04] MEDS: LEVOTHYROXINE SODIUM 50 MCG TAB PO SCH (05:46)
[2017-03-04] MEDS: CALCIUM CARBONATE 500 MG CHEWABLE TAB CHEW PRN (05:47)
[2017-03-04 07:14] LABS: BICARBONATE 26.2 MEQ/L (21.0-32.0); POTASSIUM 4.1 MEQ/L (3.5-5.1)
[2017-03-04 07:19] LABS: AUTOMATED NEUTROPHIL # 0.5 TH/MM3 (1.8-7.7); BASOPHIL % 0.7 % (0.0-2.0); EOSINOPHIL % 0.6 % (0.0-4.0); HEMATOCRIT 32.4 % (35.0-46.0); LYMPH % 38.9 % (9.0-44.0); LYMPHOCYTE # 0.8 TH/MM3 (1.0-4.8); MEAN CELL VOLUME 90.1 FL (80.0-100.0); MEAN CORPUSCULAR HEMOGLOBIN 31.1 PG (27.0-34.0); MEAN CORPUSCULAR HGB CONC 34.5 % (32.0-36.0); NEUT % 25.8 % (16.0-70.0); PLATELET COUNT 68 TH/MM3 (150-450); RED CELL DISTRIBUTION WIDTH 16.8 % (11.6-17.2); WHITE BLOOD COUNT 1.9 TH/MM3 (4.0-11.0)
[2017-03-04 07:55] LABS: HEMO FLAGS AUTO DIFF
[2017-03-04 08:00] VITALS: BP 102/67; PULSE 89; RESP 20; TEMP 97.9; O2SAT 91
[2017-03-04 09:54] LABS: BANDS 1 % (0-6); EOSINOPHILS 1 % (0-4); NEUTROPHIL # MANUAL DIFF 0.5 TH/MM3 (1.8-7.7); PLATELET ESTIMATE SMEAR LOW (NORMAL); POLYS (SEG NEUTROPHILS) 26 % (16-70); WBC DIFF SAMPLE 100
[2017-03-04 09:55] LABS: PLATELET MORPHOLOGY NORMAL (NORMAL); SCAN/DIFF FINAL DIFF MANUAL
[2017-03-04] MEDS: DEMECLOCYCLINE HCL 150 MG TAB PO SCH ×2 (10:02→20:31)
[2017-03-04] MEDS: SODIUM CHLORIDE 1 GRAM TAB PO SCH ×3 (10:03→17:55)
[2017-03-04] MEDS: PREGABALIN 75 MG CAP PO SCH ×2 (10:03→20:31)
[2017-03-04] MEDS: CHOLECALCIFEROL (VIT D3) 1000 UNIT TAB PO SCH (10:03)
[2017-03-04] MEDS: DOCUSATE SODIUM 50 MG/SENNA 8.6 MG TAB PO SCH ×2 (10:04→20:31)
[2017-03-04] MEDS: SODIUM CHLORIDE 0.9% FLUSH 10 ML FLUSH IV FLUSH SCH ×2 (10:05→20:37)
--- NOTE | 2017-03-04 10:47 | HHI.PR ---
Subjective Remarks Patient seen at bedside. Denies and CP or SOB. Complains of back pain and rib discomfort. Objective Vital Signs Date Time Temp Pulse Resp B/P (MAP) Pulse Ox O2 Delivery O2 Flow Rate FiO2 03/04/17 04:00 97.0 80 18 120/65 (83) 90 03/04/17 00:00 97.1 86 18 118/68 (85) 90 03/03/17 20:00 97.2 79 18 122/73 (89) 90 03/03/17 18:00 96.7 77 18 95/61 (72) 94 03/03/17 12:00 96.9 82 18 99/58 (72) 92 109/65 (80) 90/55 (67) I/O 03/03/17 03/03/17 03/03/17 03/04/17 03/04/17 03/04/17 07:00 15:00 23:00 07:00 15:00 23:00 Intake Total 120 ml 480 ml 240 ml 480 ml Output Total 150 ml Balance 120 ml 330 ml 240 ml 480 ml Intake Oral 120 ml 480 ml 240 ml 480 ml Output Urine Total 150 ml # Voids 1 1 Result Diagram: 03/04/17 0620 03/04/17 0620 Objective Remarks GENERAL: Alert and cooperative SKIN: Warm and dry. HEAD: Normocephalic. EYES: No scleral icterus. No injection or drainage. NECK: Supple, trachea midline. No JVD or lymphadenopathy. CARDIOVASCULAR: Regular rate and rhythm without murmurs, gallops, or rubs. RESPIRATORY: Breath sounds equal bilaterally. No accessory muscle use. GASTROINTESTINAL: Abdomen soft, non-tender, nondistended. MUSCULOSKELETAL: No cyanosis, or edema. BACK: Nontender without obvious deformity. No CVA tenderness. Medications and IVs Current Medications Medications (Trade) Dose Ordered Sig/Alma Route Start Time Stop Time Status Last Admin (NS Flush) 2 ml UNSCH PRN IV FLUSH 03/02/17 14:00 (NS Flush) 2 ml BID IV FLUSH 03/02/17 21:00 03/04/17 10:05 (Zofran Inj) 4 mg Q6H PRN IVP 03/02/17 14:00 (Narcan Inj) 0.4 mg UNSCH PRN IV 03/02/17 14:00 (Meryl-Colace) 1 tab BID PO 8/22/17 21:00 03/04/17 10:04 (Milk Of Magnesia Liq) 30 ml Q12H PRN PO 03/02/17 14:00 (Senokot) 17.2 mg Q12H PRN PO 03/02/17 14:00 (Dulcolax Supp) 10 mg DAILY PRN RECTAL 03/02/17 14:00 (Lactulose Liq) 30 ml DAILY PRN PO 03/02/17 14:00 (Vitamin D3) 1,000 units DAILY PO 03/03/17 09:00 03/04/17 10:03 (Declomycin) 300 mg Q12HR PO 03/02/17 21:00 03/04/17 10:02 ([place] 10-325 Mg) 1 tab Q4H PRN PO 03/02/17 14:00 03/04/17 10:02 (Duoneb Neb) 1 ampule Q6HR NEB PRN NEB 03/02/17 14:00 (Synthroid) 50 mcg DAILY@0600 PO 03/03/17 06:00 03/04/17 05:46 (Sodium Chloride) 1 gm TIDPC PO 03/02/17 18:30 03/04/17 10:03 (Lyrica) 75 mg Q12HR PO 03/03/17 09:00 03/04/17 10:03 (Pepcid) 20 mg BID PRN PO 03/04/17 01:15 (Tums Chew) 500 mg Q4H PRN CHEW 03/04/17 01:15 03/04/17 05:47 Assessment and Plan Problem List: (1) Compression fracture of spine ICD Codes: M48.50XA - Collapsed vertebra, not elsewhere classified, site unspecified, initial encounter for fracture (2) Hypothyroid ICD Codes: E03.9 - Hypothyroidism, unspecified (3) Pancytopenia ICD Codes: D61.818 - Other pancytopenia (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 Reports that she feel this weekend. CT of lumbar and thoracic region done. Multiple chronic compression fx noted and disc herniation. Ortho consulted for recommendations. On Payette and Lyrica for pain. PT ordered Pancytopenia Patient with small cell lung carcinoma. WBC 1.8, HGB 11.5 and Plts of 53. Will continue to monitor. Hematology consulted Hypothyroidism continue replacement. TSH level pending SIADH Patient is on demeclocycline. Sodium levels pending this am. 03/04/17 Patient complaining of pain in rib area today. Awaiting ortho consult. Will continue Payette and lyrica. Discussed Fentanyl patch with Dr. Doe will reassess tomorrow Pancytopenia- WBC stable at 1.9 and Plt improved at 63. Hematology consult pending SIADH Sodium stable at 135 on demeclocycline. I and the PUBLICATIONS SALES REPRESENTATIVE have both examined this patient and reviewed this note and I agree with these findings and plan of care. Cheryl Lugo. PUBLICATIONS SALES REPRESENTATIVE Mar 04, 2017 10:47
--- NOTE | 2017-03-04 10:49 | HHI.FF ---
Face to Face Verification Diagnosis: (1) Compression fracture of spine (2) Small cell lung cancer Home Health Nursing Order: Medical education Nursing assessment with vital signs I have seen patient Nemo Bledsoe on 03/04/17. My clinical findings support the need for the requested home health care services because: Deconditioned w/ increased weakness I certify that my clinical findings support that this patient is homebound because: Impaired cognitive ability/safety Need for psychosocial assistance Cheryl Parra Mar 04, 2017 10:49
[2017-03-04 12:00] VITALS: BP 98/53; PULSE 89; RESP 22; TEMP 97.3; O2SAT 91
[2017-03-04 16:00] VITALS: BP 99/62; PULSE 84; RESP 20; TEMP 97.1; O2SAT 91
[2017-03-04 20:00] VITALS: BP 92/58; PULSE 90; RESP 18; TEMP 98.1; O2SAT 90
--- NOTE | 2017-03-04 20:01 | MB ---
cc: TEA HENRY DATE OF CONSULTATION: 03/04/2017. REASON FOR CONSULTATION: Intractable back pain. PHYSICIAN REQUESTING CONSULTATION: Dr. Kelechi Doe. HISTORY OF PRESENT ILLNESS: This patient is a pleasant 76-year-old female with onset of chest tightness. She has a known history of small-cell lung carcinoma. The patient relates a history of intermittent episodes of significant back pain over a period of several years. She notes that within the last two to three weeks fell backwards and landed up against a post and began developing increasing back pain. She has been followed by her primary care physician, Dr. Kelechi Doe. She was seen and admitted through the emergency room with increasing low back pain. A CT scan of the thoracic and lumbar spine shows evidence of multiple compression fractures of the thoracic and lumbar spine. These were interpreted as chronic based on the CT scan. I have been asked to see her in consultation regarding the same. PAST MEDICAL HISTORY: Past medical history is significant for: 1. Lung carcinoma. 2. Hypertension. 3. Previous shoulder surgery. MEDICATIONS: 1. Redgranite. 2. Vitamin D. 3. Thyroid replacement. 4. DuoNeb. INPATIENT MEDICATIONS: Listed on the medication sheet. She had chemotherapy approximately two weeks ago. PHYSICAL EXAMINATION: GENERAL: A frail elderly female. HEAD, EYES, EARS, NOSE, THROAT: Normocephalic and atraumatic. Pupils equal, round and reactive to light and accommodation. Extraocular muscles intact. NECK: The neck is supple. CHEST: Clear. HEART: Regular rate and rhythm. ABDOMEN: Abdomen soft and nontender. MUSCULOSKELETAL: Significant thoracic kyphosis. Moderate pain thoracic and lumbar spine. Pain with range of motion at the pelvis level. LOWER EXTREMITIES: No significant edema. Straight leg raising negative. NEUROLOGIC: Motor examination is normal. Sensation is normal. Dorsalis pedis and posterior tibial pulses are 1+. IMAGING STUDIES: CT of the thoracic and lumbar spine were reviewed and reviewed the radiologist's interpretation and shows evidence of multiple compression fractures mid-thoracic spine and lumbar spine, L2, L3 and L4. They have a chronic appearance to them. IMPRESSION: Multiple compression fractures of the thoracic and lumbar spine. PLAN: These are probably mostly chronic fractures. I suspect that one or more may be subacute dating back two to three weeks. The patient is very neutropenic and is on neutropenic precautions. She is not a candidate to consider kyphoplasty at this time. MD DINO Romo/KIERAN /6:38 PM /7:37 PM
[2017-03-05] VITALS: BP 101/64; PULSE 89; RESP 18; TEMP 98; O2SAT 91
[2017-03-05] MEDS: ACETAMINOPHEN/HYDROcodone 325 MG/10 MG TAB PO PRN ×4 (02:12→20:10)
[2017-03-05 04:00] VITALS: BP 93/57; PULSE 81; RESP 16; TEMP 97.5; O2SAT 90
[2017-03-05] MEDS ORDERED: FILGRASTIM 480 MCG/1.6 ML VIAL SQ SCH (06:00)
[2017-03-05] MEDS ORDERED: FILGRASTIM 480 MCG/1.6 ML VIAL SQ ONE (06:00)
[2017-03-05] MEDS: LEVOTHYROXINE SODIUM 50 MCG TAB PO SCH (06:12)
--- NOTE | 2017-03-05 07:12 | MB ---
cc: SHORTY BARRON M.D. DATE OF CONSULTATION 03/04/2017 REASON FOR CONSULTATION Consult requested by Dr. Doe for evaluation of pancytopenia in a patient who is on chemotherapy for small cell lung cancer. HISTORY OF PRESENT ILLNESS Nemo is a pleasant 76-year-old female. She was diagnosed with limited stage small cell lung cancer September 2016. The patient has been on combined concurrent radiation and chemotherapy. So far she has been tolerating it well. The patient recently had developed back pain and she attributed this to coming off of the radiation therapy table. She was at home and twisted her back while walking outside the home. She was in excruciating pain and was brought into the emergency room. The CT scan of the thoracic and lumbar spine showed multiple chronic compression fractures. The patient is admitted to the hospital. Orthopedics has been consulted for possible kyphoplasty. The patient has pancytopenia and I have been asked to see the patient for further evaluation. The patient has been complaining of severe back pain. She denies any nausea, vomiting, or diarrhea. She denies any headaches or dizziness. Her appetite is good. The rest of the review of systems is negative. PAST MEDICAL HISTORY 1. Compression fractures of T and L-spine 2. COPD 3. Hypothyroidism 4. Small cell lung cancer limited stage PAST SURGICAL HISTORY 1. Cataract 2. Hfcaqd-I-Lcce placement 3. Removal of a benign tumor from the from clavicle. 4. Right paratracheal mass aspiration. ALLERGIES SHELLFISH MEDICATIONS Medications include: 1. Levothyroxine 2. Vitamin D 3. Sodium 4. Hydrocodone 5. Chemotherapy FAMILY HISTORY Mother from old age. Father at the age of 59 from colon cancer. The patient does not have any children. SOCIAL HISTORY The patient is legally . She used to smoke cigarettes one pack for 58 years. She drinks alcohol occasionally. PHYSICAL EXAMINATION VITAL SIGNS: Temperature 97.9, heart rate is 89, blood pressure is 102/67, O2 saturation 91% on room air. HEENT: PERRLA, EOMI, anicteric. No oral lesions noted. NECK: Supple. There is no cervical, supraclavicular or axillary lymphadenopathy noted. LUNGS: Clear. No wheezing, rhonchi or rales. HEART: Regular rate and rhythm. ABDOMEN: Soft and nontender. No hepatosplenomegaly. EXTREMITIES: No pedal edema. NEUROLOGIC: Awake, alert, and oriented times three. SKIN: No significant lesions are noted. ASSESSMENT 1. Pancytopenia due to chemotherapy. 2. Small cell lung cancer limited stage currently on radiation and chemotherapy cisplatin and etoposide. 3. Back pain due to multiple compression fractures. PLAN I have reviewed her records and I have discussed with the patient regarding her blood test results. CBC yesterday when she came in showed a white count 1.8, hemoglobin of 11.5, hematocrit 34.4, platelet count is 53. CBC this morning showed a white count of 1.9, hemoglobin 9.25 hematocrit 32.4, platelet count is 68. The absolute neutrophil count 2500. Because of the severe neutropenia, I will start her on Neupogen 480 mcg daily. We will monitor her CBC carefully. The patient does not require any blood or platelet transfusion support at this time. The patient states that orthopedics has been consulted for her back pain and compression fractures. Further recommendations to follow based on her hospital stay. Thank you for asking my opinion. MD JENNIFER Dominguez/NIKOLAI /5:48 AM /6:52 AM
[2017-03-05 08:00] VITALS: BP 90/62; PULSE 79; RESP 20; TEMP 97.4; O2SAT 91
[2017-03-05 08:23] LABS: AUTOMATED NEUTROPHIL # 0.7 TH/MM3 (1.8-7.7); BASOPHIL % 0.5 % (0.0-2.0); EOSINOPHIL % 0.7 % (0.0-4.0); HEMATOCRIT 31.7 % (35.0-46.0); LYMPH % 38.9 % (9.0-44.0); LYMPHOCYTE # 0.9 TH/MM3 (1.0-4.8); MEAN CELL VOLUME 90.4 FL (80.0-100.0); MEAN CORPUSCULAR HGB CONC 33.2 % (32.0-36.0); MONO % 25.9 % (0.0-8.0); PLATELET COUNT 89 TH/MM3 (150-450); RED BLOOD COUNT 3.51 MIL/MM3 (4.00-5.30); RED CELL DISTRIBUTION WIDTH 16.7 % (11.6-17.2); WHITE BLOOD COUNT 2.2 TH/MM3 (4.0-11.0)
[2017-03-05 08:48] LABS: HEMO FLAGS AUTO DIFF
[2017-03-05 08:59] LABS: POTASSIUM 4.9 MEQ/L (3.5-5.1)
[2017-03-05] MEDS: DOCUSATE SODIUM 50 MG/SENNA 8.6 MG TAB PO SCH ×2 (09:00→20:11)
[2017-03-05] MEDS: PREGABALIN 75 MG CAP PO SCH ×2 (09:00→20:11)
[2017-03-05] MEDS: SODIUM CHLORIDE 1 GRAM TAB PO SCH ×3 (09:22→18:13)
[2017-03-05] MEDS: CHOLECALCIFEROL (VIT D3) 1000 UNIT TAB PO SCH (09:22)
[2017-03-05] MEDS: DEMECLOCYCLINE HCL 150 MG TAB PO SCH ×2 (09:22→20:10)
[2017-03-05] MEDS: SODIUM CHLORIDE 0.9% FLUSH 10 ML FLUSH IV FLUSH SCH ×2 (09:23→20:11)
[2017-03-05] MEDS: CALCIUM CARBONATE 500 MG CHEWABLE TAB CHEW PRN (09:27)
[2017-03-05 09:44] LABS: BANDS 2 % (0-6); BASOPHILS 1 % (0-2); CORRECTED NUCLEATED RBC 1 /100 WBC (0-0); EOSINOPHILS 2 % (0-4); POLYS (SEG NEUTROPHILS) 37 % (16-70); WBC DIFF SAMPLE 100
[2017-03-05 09:45] LABS: BURR CELLS 1+ (NORMAL); NEUTROPHIL # MANUAL DIFF 0.9 TH/MM3 (1.8-7.7); PLATELET ESTIMATE SMEAR LOW (NORMAL); PLATELET MORPHOLOGY NORMAL (NORMAL)
[2017-03-05 09:46] LABS: ACANTHOCYTES 1+ (NORMAL); OVALOCYTES 1+ (NORMAL); SCAN/DIFF FINAL DIFF MANUAL
--- NOTE | 2017-03-05 11:06 | HHI.PR ---
Subjective Remarks Patient seen at bedside. Continues to complain of back pain and rib discomfort. Objective Vital Signs Date Time Temp Pulse Resp B/P (MAP) Pulse Ox O2 Delivery O2 Flow Rate FiO2 03/05/17 08:00 97.4 79 20 90/62 (71) 91 03/05/17 07:13 18 03/05/17 04:00 97.5 81 16 93/57 (69) 90 03/05/17 00:00 98.0 89 18 101/64 (76) 91 03/04/17 20:00 98.1 90 18 92/58 (69) 90 03/04/17 16:00 97.1 84 20 99/62 (74) 91 03/04/17 12:00 97.3 89 22 98/53 (68) 91 I/O 03/04/17 03/04/17 03/04/17 03/05/17 03/05/17 03/05/17 06:59 14:59 22:59 06:59 14:59 22:59 Intake Total 480 ml 1080 ml 380 ml Output Total 600 ml Balance 480 ml 480 ml 380 ml Intake Oral 480 ml 1080 ml 380 ml Output Urine Total 600 ml # Voids 1 2 Result Diagram: 03/05/17 0754 03/05/17 0754 Objective Remarks GENERAL: Alert and cooperative SKIN: Warm and dry. HEAD: Normocephalic. EYES: No scleral icterus. No injection or drainage. NECK: Supple, trachea midline. No JVD or lymphadenopathy. CARDIOVASCULAR: Regular rate and rhythm without murmurs, gallops, or rubs. RESPIRATORY: Breath sounds equal bilaterally. No accessory muscle use. GASTROINTESTINAL: Abdomen soft, non-tender, nondistended. MUSCULOSKELETAL: No cyanosis, or edema. BACK: Nontender without obvious deformity. No CVA tenderness. Medications and IVs Current Medications Medications (Trade) Dose Ordered Sig/Alma Route Start Time Stop Time Status Last Admin (NS Flush) 2 ml UNSCH PRN IV FLUSH 03/02/17 14:00 (NS Flush) 2 ml BID IV FLUSH 03/02/17 21:00 03/05/17 09:23 (Zofran Inj) 4 mg Q6H PRN IVP 03/02/17 14:00 (Narcan Inj) 0.4 mg UNSCH PRN IV 03/02/17 14:00 (Meryl-Colace) 1 tab BID PO 03/02/17 21:00 03/05/17 09:00 (Milk Of Magnesia Liq) 30 ml Q12H PRN PO 03/02/17 14:00 (Senokot) 17.2 mg Q12H PRN PO 03/02/17 14:00 (Dulcolax Supp) 10 mg DAILY PRN RECTAL 03/02/17 14:00 (Lactulose Liq) 30 ml DAILY PRN PO 03/02/17 14:00 (Vitamin D3) 1,000 units DAILY PO 03/03/17 09:00 03/05/17 09:22 (Declomycin) 300 mg Q12HR PO 03/02/17 21:00 03/05/17 09:22 (Ford 10-325 Mg) 1 tab Q4H PRN PO 03/02/17 14:00 03/05/17 10:39 (Duoneb Neb) 1 ampule Q6HR NEB PRN NEB 03/02/17 14:00 (Synthroid) 50 mcg DAILY@0600 PO 03/03/17 06:00 03/05/17 06:12 (Sodium Chloride) 1 gm TIDPC PO 03/02/17 18:30 03/05/17 09:22 (Lyrica) 75 mg Q12HR PO 03/03/17 09:00 03/04/17 20:31 (Pepcid) 20 mg BID PRN PO 03/04/17 01:15 (Tums Chew) 500 mg Q4H PRN CHEW 03/04/17 01:15 03/05/17 09:27 (Dilaudid Pf Inj) 1 mg Q4H PRN IV PUSH 03/04/17 16:45 (Neupogen Inj) 480 mcg DAILY@14 SQ 03/06/17 14:00 Assessment and Plan Problem List: (1) Compression fracture of spine ICD Codes: M48.50XA - Collapsed vertebra, not elsewhere classified, site unspecified, initial encounter for fracture (2) Hypothyroid ICD Codes: E03.9 - Hypothyroidism, unspecified (3) Pancytopenia ICD Codes: D61.818 - Other pancytopenia (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 Reports that she feel this weekend. CT of lumbar and thoracic region done. Multiple chronic compression fx noted and disc herniation. Ortho consulted for recommendations. On Ford and Lyrica for pain. PT ordered Pancytopenia Patient with small cell lung carcinoma. WBC 1.8, HGB 11.5 and Plts of 53. Will continue to monitor. Hematology consulted Hypothyroidism continue replacement. TSH level pending SIADH Patient is on demeclocycline. Sodium levels pending this am. 03/04/17 Patient complaining of pain in rib area today. Awaiting ortho consult. Will continue Ford and lyrica. Discussed Fentanyl patch with Dr. Doe will reassess tomorrow Pancytopenia- WBC stable at 1.9 and Plt improved at 63. Hematology consult pending SIADH Sodium stable at 135 on demeclocycline. 03/05/17 Compression fracture: Seen by ortho multiple compression fractures of the thoracic and lumbar spine. Per report these are probably mostly chronic fractures. Suspected that one or more may be subacute dating back two to three weeks. She is not a candidate to consider kyphoplasty at this time. Pain management consulted to assist with pain control. Pancytopenia- WBC improving at 2.2 and Plt improved at 89. Hematology neupogen added daily. SIADH Sodium stable on demeclocycline and sodium tablets. NA 137 Hypotension B/P low at 90/62 will add IVF's I and the PUMP OPERATOR have both examined this patient and reviewed this note and I agree with these findings and plan of care. Cheryl Lugo. PUMP OPERATOR Mar 05, 2017 11:06
[2017-03-05 12:00] VITALS: BP 123/73; PULSE 90; RESP 18; TEMP 99.1; O2SAT 92
[2017-03-05] MEDS: HYDROmorphone HCL PF 1 MG/ML VIAL IV PUSH PRN ×3 (13:15→18:09)
[2017-03-05] MEDS: SODIUM CHLOR 0.9% 1000 ML INJ 1,000 ML IV SCH ×2 (13:15→22:55)
--- NOTE | 2017-03-05 14:26 | PD.ONC.PN ---
Subjective Subjective Remarks "My back is killing me" Patient reports being very uncomfortable despite getting [place] every 4 hours. She was reminded that she has IV Dilaudid prn. Objective Data Date Time Temp Pulse Resp B/P (MAP) Pulse Ox O2 Delivery O2 Flow Rate FiO2 03/05/17 12:00 99.1 90 18 123/73 (90) 92 03/05/17 11:39 18 03/05/17 08:00 97.4 79 20 90/62 (71) 91 03/05/17 04:00 97.5 81 16 93/57 (69) 90 03/05/17 00:00 98.0 89 18 101/64 (76) 91 03/04/17 20:00 98.1 90 18 92/58 (69) 90 03/04/17 16:00 97.1 84 20 99/62 (74) 91 03/05/17 03/05/17 03/05/17 07:00 15:00 23:00 Intake Total 380 ml Balance 380 ml Result Diagram: 03/05/17 0754 03/05/17 0754 Laboratory Results Laboratory Tests Test 03/05/17 07:54 White Blood Count 2.2 TH/MM3 Red Blood Count 3.51 MIL/MM3 Hemoglobin 10.5 GM/DL Hematocrit 31.7 % Mean Corpuscular Volume 90.4 FL Mean Corpuscular Hemoglobin 30.0 PG Mean Corpuscular Hemoglobin Concent 33.2 % Red Cell Distribution Width 16.7 % Platelet Count 89 TH/MM3 Mean Platelet Volume 8.7 FL Neutrophils (%) (Auto) 34.0 % Lymphocytes (%) (Auto) 38.9 % Monocytes (%) (Auto) 25.9 % Eosinophils (%) (Auto) 0.7 % Basophils (%) (Auto) 0.5 % Neutrophils # (Auto) 0.7 TH/MM3 Lymphocytes # (Auto) 0.9 TH/MM3 Monocytes # (Auto) 0.6 TH/MM3 Eosinophils # (Auto) 0.0 TH/MM3 Basophils # (Auto) 0.0 TH/MM3 CBC Comment AUTO DIFF Differential Total Cells Counted 100 Neutrophils % (Manual) 37 % Band Neutrophils % 2 % Lymphocytes % 38 % Monocytes % 20 % Eosinophils % 2 % Basophils % 1 % Neutrophils # (Manual) 0.9 TH/MM3 Nucleated Red Blood Cells 1 /100 WBC Differential Comment FINAL DIFF MANUAL Platelet Estimate LOW Platelet Morphology Comment NORMAL Ovalocytes 1+ Toni Cells 1+ Acanthocytes 1+ Blood Urea Nitrogen 11 MG/DL Creatinine 0.70 MG/DL Random Glucose 86 MG/DL Calcium Level 9.2 MG/DL Sodium Level 137 MEQ/L Potassium Level 4.9 MEQ/L Chloride Level 105 MEQ/L Carbon Dioxide Level 27.0 MEQ/L Anion Gap 5 MEQ/L Estimat Glomerular Filtration Rate 81 ML/MIN Administered Medications Medications (Trade) Dose Ordered Sig/Alma Route PRN Reason Start Time Stop Time Status Last Admin Dose Admin Sodium Chloride (NS Flush) 2 ml BID IV FLUSH 03/02/17 21:00 03/05/17 09:23 Senna/Docusate Sodium (Meryl-Colace) 1 tab BID PO 03/02/17 21:00 03/05/17 09:00 Cholecalciferol (Vitamin D3) 1,000 units DAILY PO 03/03/17 09:00 03/05/17 09:22 Demeclocycline HCl (Declomycin) 300 mg Q12HR PO 03/02/17 21:00 03/05/17 09:22 Acetaminophen/ Hydrocodone Bitart ([place] 10-325 Mg) 1 tab Q4H PRN PO PAIN 1-10 03/02/17 14:00 03/05/17 10:39 Levothyroxine Sodium (Synthroid) 50 mcg DAILY@0600 PO 03/03/17 06:00 03/05/17 06:12 Sodium Chloride (Sodium Chloride) 1 gm TIDPC PO 03/02/17 18:30 03/05/17 13:15 Pregabalin (Lyrica) 75 mg Q12HR PO 03/03/17 09:00 03/04/17 20:31 Calcium Carbonate (Tums Chew) 500 mg Q4H PRN CHEW INDIGESTION 03/04/17 01:15 03/05/17 09:27 Hydromorphone HCl (Dilaudid Pf Inj) 1 mg Q4H PRN IV PUSH PAIN SCALE 6-10 03/04/17 16:45 03/05/17 14:11 Sodium Chloride 1,000 ml @ 84 mls/hr [id number] IV 03/05/17 11:00 03/05/17 13:15 Objective Remarks GENERAL: Chronically ill-appearing older female resting in bed. She appears uncomfortable. SKIN: Warm and dry. +Alopecia HEAD: Normocephalic. EYES: No injection or drainage. NECK: Supple, trachea midline. CARDIOVASCULAR: Regular rate and rhythm without murmurs. RESPIRATORY: Breath sounds equal bilaterally. No accessory muscle use. GASTROINTESTINAL: Abdomen soft, non-tender, nondistended. EXTREMITIES: No cyanosis, or edema. NEUROLOGICAL: No obvious focal deficit. Awake, alert, and oriented x3. Assessment/Plan Problem List: (1) Small cell lung cancer ICD Codes: C34.90 - Malignant neoplasm of unspecified part of unspecified bronchus or lung Status: Acute Plan: 03/05/17: Continue Neupogen. Once counts improved she may be eligible for kyphoplasty to control her pain. -- Original diagnosis was in September 2016 with a limited stage -- She has been tolerating concurrent radiation and chemotherapy. (2) Compression fracture of spine ICD Codes: M48.50XA - Collapsed vertebra, not elsewhere classified, site unspecified, initial encounter for fracture Plan: -- The patient suffered a back injury while walking outside her house -- She was evaluated by orthopedics for possible kyphoplasty -- No surgical plans until she is no longer neutropenic Plan Attending Statement still c/o back pain continue neupogen. Kyphoplasty next week as i expect her nuetropenia will resolve by that time. The exam, history, and the medical decision-making described in the above note were completed with the assistance of the mid-level provider. I reviewed and agree with the findings presented. I attest that I had a [id number] encounter with the patient on the same day, and personally performed and documented my assessment and findings in the medical record. Latanya Amos Mar 05, 2017 14:26 Domenic Rowley MD Mar 05, 2017 18:10
[2017-03-05 16:00] VITALS: BP 126/62; PULSE 104; RESP 18; TEMP 99.4; O2SAT 91
[2017-03-05] MEDS: fentaNYL 25 MCG/HR PATCH T-DERMAL SCH (18:08)
[2017-03-05 19:53] VITALS: BP 134/54; PULSE 102; RESP 20; TEMP 99.9; O2SAT 90; O2SAT 99
[2017-03-06] VITALS: BP 124/61; PULSE 107; RESP 20; TEMP 98; O2SAT 90
[2017-03-06] MEDS: HYDROmorphone HCL PF 1 MG/ML VIAL IV PUSH PRN ×5 (00:50→23:59)
[2017-03-06 04:00] VITALS: BP 104/60; PULSE 83; RESP 18; TEMP 96; O2SAT 97
[2017-03-06] MEDS: ACETAMINOPHEN/HYDROcodone 325 MG/10 MG TAB PO PRN ×4 (04:28→20:29)
[2017-03-06] MEDS: LEVOTHYROXINE SODIUM 50 MCG TAB PO SCH (04:29)
[2017-03-06 08:00] VITALS: BP 94/56; PULSE 80; RESP 20; TEMP 96.3; O2SAT 99
[2017-03-06 08:15] LABS: AUTOMATED NEUTROPHIL # 9.6 TH/MM3 (1.8-7.7); BASOPHIL # 0.1 TH/MM3 (0-0.2); BASOPHIL % 0.8 % (0.0-2.0); EOSINOPHIL % 0.2 % (0.0-4.0); LYMPH % 7.3 % (9.0-44.0); LYMPHOCYTE # 0.9 TH/MM3 (1.0-4.8); MEAN CELL VOLUME 90.6 FL (80.0-100.0); MEAN CORPUSCULAR HEMOGLOBIN 31.2 PG (27.0-34.0); MEAN CORPUSCULAR HGB CONC 34.4 % (32.0-36.0); NEUT % 81.7 % (16.0-70.0); PLATELET COUNT 89 TH/MM3 (150-450); RED CELL DISTRIBUTION WIDTH 16.8 % (11.6-17.2); WHITE BLOOD COUNT 11.8 TH/MM3 (4.0-11.0)
[2017-03-06 08:19] LABS: HEMO FLAGS AUTO DIFF
[2017-03-06 08:34] LABS: BICARBONATE 20.7 MEQ/L (21.0-32.0); POTASSIUM 4.3 MEQ/L (3.5-5.1)
[2017-03-06] MEDS: DOCUSATE SODIUM 50 MG/SENNA 8.6 MG TAB PO SCH ×2 (09:00→20:28)
[2017-03-06] MEDS: CHOLECALCIFEROL (VIT D3) 1000 UNIT TAB PO SCH (09:00)
[2017-03-06] MEDS: SODIUM CHLORIDE 1 GRAM TAB PO SCH ×3 (09:00→17:28)
[2017-03-06] MEDS: PREGABALIN 75 MG CAP PO SCH ×2 (09:00→20:29)
[2017-03-06] MEDS: DEMECLOCYCLINE HCL 150 MG TAB PO SCH ×2 (09:01→20:28)
[2017-03-06] MEDS: SODIUM CHLORIDE 0.9% FLUSH 10 ML FLUSH IV FLUSH SCH ×2 (09:03→20:28)
[2017-03-06 10:35] LABS: BANDS 30 % (0-6); MYELOCYTES 1 % (0-0); NEUTROPHIL # MANUAL DIFF 10.3 TH/MM3 (1.8-7.7); OVALOCYTES 1+ (NORMAL); PLATELET ESTIMATE SMEAR LOW (NORMAL); PLATELET MORPHOLOGY NORMAL (NORMAL); POLYS (SEG NEUTROPHILS) 56 % (16-70); SCAN/DIFF FINAL DIFF MANUAL; WBC DIFF SAMPLE 100
[2017-03-06] MEDS: SODIUM CHLOR 0.9% 1000 ML INJ 1,000 ML IV SCH ×2 (11:02→20:28)
[2017-03-06 12:00] VITALS: BP 122/55; PULSE 98; RESP 20; TEMP 98; O2SAT 98
[2017-03-06] MEDS ORDERED: FILGRASTIM 480 MCG/1.6 ML VIAL SQ SCH (14:00)
[2017-03-06 16:00] VITALS: BP 124/68; PULSE 79; RESP 14; TEMP 97.7; O2SAT 98
--- NOTE | 2017-03-06 17:13 | HHI.PR ---
Subjective Remarks neutropnia nupogen started Objective Vital Signs Date Time Temp Pulse Resp B/P (MAP) Pulse Ox O2 Delivery O2 Flow Rate FiO2 03/06/17 16:00 97.7 79 14 124/68 (86) 98 03/06/17 12:00 98.0 98 20 122/55 (77) 98 03/06/17 08:00 96.3 80 20 94/56 (69) 99 03/06/17 07:00 Nasal Cannula 3.00 03/06/17 04:00 96.0 83 18 104/60 (75) 97 03/06/17 00:00 98.0 107 20 124/61 (82) 90 03/05/17 20:27 94 Nasal Cannula 3.00 03/05/17 20:22 84 Room Air 03/05/17 19:53 99.9 102 20 134/54 (80) 90 03/05/17 18:49 18 03/05/17 18:49 18 I/O 03/05/17 03/05/17 03/05/17 03/06/17 03/06/17 03/06/17 07:00 15:00 23:00 07:00 15:00 23:00 Intake Total 380 ml 840 ml 480 ml 480 ml Output Total 550 ml 500 ml Balance 380 ml 290 ml 480 ml -20 ml Intake Oral 380 ml 840 ml 480 ml 480 ml Output Urine Total 550 ml 500 ml # Voids 2 3 1 Result Diagram: 03/06/1772303/06/17 0724 Objective Remarks GENERAL:frail white female SKIN: Warm and dry. HEAD: Normocephalic. EYES: No scleral icterus. No injection or drainage. NECK: Supple, trachea midline. No JVD or lymphadenopathy. CARDIOVASCULAR: Regular rate and rhythm without murmurs, gallops, or rubs. RESPIRATORY: Breath sounds equal bilaterally. No accessory muscle use. GASTROINTESTINAL: Abdomen soft, non-tender, nondistended. EXTREMITIES: No cyanosis, or edema.co intermitttant back pain NEUROLOGICAL: Awake, alert, and oriented x 3. Non-focal. Medications and IVs Inpatient Medications Acetaminophen/ Hydrocodone Bitart ([place] 10-325 Mg) 1 tab Q4H PRN PO PAIN 1-10 Last administered on 03/06/17t 15:12; Start 03/02/17 at 14:00 Albuterol/ Ipratropium (Duoneb Neb) 1 ampule Q6HR NEB PRN NEB SHORTNESS OF BREATH; Start 03/02/17 at 14:00 Bisacodyl (Dulcolax Supp) 10 mg DAILY PRN RECTAL SEVERE CONSITIPATION; Start at 14:00 Calcium Carbonate (Tums Chew) 500 mg Q4H PRN CHEW INDIGESTION Last administered on 03/05/17 09:27; Start 03/04/17 at 01:15 Cholecalciferol (Vitamin D3) 1,000 units DAILY PO Last administered on 09:00; Start 03/03/17 at 09:00 Demeclocycline HCl (Declomycin) 300 mg Q12HR PO Last administered on 03/06/17 09:01; Start 03/02/17 at 21:00 Famotidine (Pepcid) 20 mg BID PRN PO INDIGESTION; Start 03/04/17 at 01:15 Fentanyl (Duragesic 25 Mcg Patch.72 Hr) 1 patch Q3D T-DERMAL Last administered on 03/05/17 18:08; Start 03/05/17 at 17:00 Filgrastim (Neupogen Inj) 480 mcg ONCE ONCE SQ Last administered on 03/05/17 06:13; Start 03/05/17 at 06:00; Stop 03/05/17 at 06:01; Status DC Hydromorphone HCl (Dilaudid Pf Inj) 1 mg Q4H PRN IV PUSH PAIN SCALE 6-10 Last administered on 03/06/17 13:16; Start 03/04/17 at 16:45 Lactulose (Lactulose Liq) 30 ml DAILY PRN PO SEVERE CONSITIPATION; Start at 14:00 Levothyroxine Sodium (Synthroid) 50 mcg DAILY@0600 PO Last administered on 03/06 04:29; Start 03/03/17 at 06:00 Magnesium Hydroxide (Milk Of Magnesia Liq) 30 ml Q12H PRN PO MILD - MODERATE CONSTIPATION; Start 03/02/17 at 14:00 Miscellaneous Information 1 Q3D T-DERMAL ; Start 03/08/17 at 17:00 Morphine Sulfate (Morphine Inj) 4 mg ONCE ONCE IV PUSH Last administered on 13:17; Start 03/02/17 at 13:00; Stop 03/02/17 at 13:01; Status DC Naloxone HCl (Narcan Inj) 0.4 mg UNSCH PRN IV SEE LABEL COMMENTS; Start at 14:00 Ondansetron HCl (Zofran Inj) 4 mg Q6H PRN IVP NAUSEA OR VOMITING; Start at 14:00 Pregabalin (Lyrica) 75 mg Q12HR PO Last administered on 03/05/17 20:11; Start 03/03/17 at 09:00 Senna/Docusate Sodium (Meryl-Colace) 1 tab BID PO Last administered on 09:00; Start 03/02/17 at 21:00 Sennosides (Senokot) 17.2 mg Q12H PRN PO MODERATE - SEVERE CONSTIPATION; Start 03/02/17 at 14:00 Sodium Chloride 1,000 ml @ 84 mls/hr [id number] IV Last administered on 11:02; Start 03/05/17 at 11:00 Sodium Chloride (NS Flush) 2 ml BID IV FLUSH Last administered on 03/06/17 09: 03; Start 03/02/17 at 21:00 Sodium Chloride (Sodium Chloride) 1 gm TIDPC PO Last administered on 03/06/17 13:19; Start 03/02/17 at 18:30 Assessment and Plan Problem List: (1) Back pain ICD Codes: M54.9 - Dorsalgia, unspecified (2) Hypertension ICD Codes: I10 - Essential (primary) hypertension Assessment and Plan back pain intermittant has fentanyl now neutropenic precautions started Discussed Condition With pt Discharge Planning home Kelechi Doe DO Mar 06, 2017 17:13
[2017-03-06 20:00] VITALS: BP 113/60; PULSE 99; RESP 18; TEMP 97.6; O2SAT 96
[2017-03-07] VITALS: BP 148/65; PULSE 93; RESP 18; TEMP 99.3; O2SAT 98
[2017-03-07] MEDS: ACETAMINOPHEN/HYDROcodone 325 MG/10 MG TAB PO PRN ×4 (01:40→21:40)
[2017-03-07] MEDS: HYDROmorphone HCL PF 1 MG/ML VIAL IV PUSH PRN ×2 (03:53→14:49)
[2017-03-07] MEDS: LEVOTHYROXINE SODIUM 50 MCG TAB PO SCH ×2 (06:00→06:01)
[2017-03-07 07:50] LABS: AUTOMATED NEUTROPHIL # 13.3 TH/MM3 (1.8-7.7); BASOPHIL % 0.2 % (0.0-2.0); EOSINOPHIL % 0.1 % (0.0-4.0); HEMATOCRIT 28.4 % (35.0-46.0); LYMPH % 5.6 % (9.0-44.0); LYMPHOCYTE # 0.9 TH/MM3 (1.0-4.8); MEAN CORPUSCULAR HGB CONC 33.4 % (32.0-36.0); NEUT % 84.1 % (16.0-70.0); PLATELET COUNT 111 TH/MM3 (150-450); RED BLOOD COUNT 3.16 MIL/MM3 (4.00-5.30); RED CELL DISTRIBUTION WIDTH 17.2 % (11.6-17.2); WHITE BLOOD COUNT 15.8 TH/MM3 (4.0-11.0)
[2017-03-07 07:54] LABS: HEMO FLAGS AUTO DIFF
[2017-03-07 08:00] VITALS: BP 98/60; PULSE 83; RESP 20; TEMP 97.5; O2SAT 97
[2017-03-07 08:07] LABS: BICARBONATE 22.8 MEQ/L (21.0-32.0); POTASSIUM 3.9 MEQ/L (3.5-5.1)
[2017-03-07] MEDS: DEMECLOCYCLINE HCL 150 MG TAB PO SCH ×2 (09:15→21:37)
[2017-03-07] MEDS: PREGABALIN 75 MG CAP PO SCH ×2 (09:18→21:37)
[2017-03-07] MEDS: SODIUM CHLORIDE 1 GRAM TAB PO SCH ×3 (09:18→18:43)
[2017-03-07] MEDS: DOCUSATE SODIUM 50 MG/SENNA 8.6 MG TAB PO SCH ×2 (09:18→21:38)
[2017-03-07] MEDS: SODIUM CHLORIDE 0.9% FLUSH 10 ML FLUSH IV FLUSH SCH ×2 (09:18→21:38)
[2017-03-07] MEDS: SODIUM CHLOR 0.9% 1000 ML INJ 1,000 ML IV SCH ×2 (09:19→21:32)
[2017-03-07] MEDS: CHOLECALCIFEROL (VIT D3) 1000 UNIT TAB PO SCH (09:19)
[2017-03-07 09:26] LABS: BANDS 29 % (0-6); DOHLE BODIES PRESENT (NONE SEEN); METAMYELOCYTES 5 % (0-1); NEUTROPHIL # MANUAL DIFF 14.5 TH/MM3 (1.8-7.7); POLYS (SEG NEUTROPHILS) 58 % (16-70); WBC DIFF SAMPLE 100
[2017-03-07 09:27] LABS: ACANTHOCYTES OCC (NORMAL); OVALOCYTES 1+ (NORMAL); TOXIC GRANULATION 1+ (NORMAL)
[2017-03-07 09:28] LABS: PLATELET ESTIMATE SMEAR LOW (NORMAL)
[2017-03-07 09:29] LABS: PLATELET MORPHOLOGY ENLARGED (NORMAL); SCAN/DIFF FINAL DIFF MANUAL
[2017-03-07 12:00] VITALS: BP 133/69; PULSE 76; RESP 18; TEMP 97.1; O2SAT 96
[2017-03-07 14:39] VITALS: BP 105/56; PULSE 86
[2017-03-07 18:40] VITALS: BP 102/99; PULSE 74; RESP 14; TEMP 96.9; O2SAT 99
--- NOTE | 2017-03-07 19:29 | HHI.PR ---
Subjective Remarks pt seen this afternoon about 130pm was sitting up on side of bed with an aid present when I entered the room when she realized i was in she swung her legs upand swiveled to the bed and under the covers without any difficulty only when i asked about her back did she complain of any pain i think a large portion of her difficulties are supra tentoral Objective Vital Signs Date Time Temp Pulse Resp B/P (MAP) Pulse Ox O2 Delivery O2 Flow Rate FiO2 03/07/17 18:41 99 Nasal Cannula 2.00 03/07/17 18:40 96.9 74 14 102/99 (100) 99 03/07/17 14:39 86 105/56 (72) 03/07/17 12:00 97.1 76 18 133/69 (90) 96 03/07/17 09:31 98 Nasal Cannula 3.00 03/07/17 08:00 97.5 83 20 98/60 (73) 97 03/07/17 00:00 99.3 93 18 148/65 (92) 98 03/06/17 20:22 98 Nasal Cannula 3.00 03/06/17 20:00 97.6 99 18 113/60 (77) 96 I/O 03/06/17 03/06/17 03/06/17 03/07/17 03/07/17 03/07/17 06:59 14:59 22:59 06:59 14:59 22:59 Intake Total 480 ml 480 ml 672 ml 655 ml Output Total 500 ml Balance 480 ml -20 ml 672 ml 655 ml Intake Oral 480 ml 480 ml IV Total 672 ml 655 ml Output Urine Total 500 ml # Voids 3 1 3 Result Diagram: 03/07/17 0702 03/07/17 0702 Objective Remarks GENERAL:frail white female SKIN: Warm and dry. HEAD: Normocephalic. EYES: No scleral icterus. No injection or drainage. NECK: Supple, trachea midline. No JVD or lymphadenopathy. CARDIOVASCULAR: Regular rate and rhythm without murmurs, gallops, or rubs. RESPIRATORY: Breath sounds equal bilaterally. No accessory muscle use. GASTROINTESTINAL: Abdomen soft, non-tender, nondistended. EXTREMITIES: No cyanosis, or edema.co intermitttant back pain NEUROLOGICAL: Awake, alert, and oriented x 3. Non-focal. Medications and IVs Inpatient Medications Acetaminophen/ Hydrocodone Bitart ([place] 10-325 Mg) 1 tab Q4H PRN PO PAIN 1-10 Last administered on 03/07/17 13:30; Start 03/02/17 at 14:00 Albuterol/ Ipratropium (Duoneb Neb) 1 ampule Q6HR NEB PRN NEB SHORTNESS OF BREATH; Start 03/02/17 at 14:00 Bisacodyl (Dulcolax Supp) 10 mg DAILY PRN RECTAL SEVERE CONSITIPATION; Start at 14:00 Calcium Carbonate (Tums Chew) 500 mg Q4H PRN CHEW INDIGESTION Last administered on 03/05/17 09:27; Start 03/04/17 at 01:15 Cholecalciferol (Vitamin D3) 1,000 units DAILY PO Last administered on 09:19; Start 03/03/17 at 09:00 Demeclocycline HCl (Declomycin) 300 mg Q12HR PO Last administered on 03/07/17 09:15; Start 03/02/17 at 21:00 Famotidine (Pepcid) 20 mg BID PRN PO INDIGESTION; Start 03/04/17 at 01:15 Fentanyl (Duragesic 25 Mcg Patch.72 Hr) 1 patch Q3D T-DERMAL Last administered on 03/05/17 18:08; Start 03/05/17 at 17:00 Filgrastim (Neupogen Inj) 480 mcg ONCE ONCE SQ Last administered on 03/05/17 06:13; Start 03/05/17 at 06:00; Stop 03/05/17 at 06:01; Status DC Hydromorphone HCl (Dilaudid Pf Inj) 1 mg Q4H PRN IV PUSH PAIN SCALE 6-10 Last administered on 03/07/17 14:49; Start 03/04/17 at 16:45 Lactulose (Lactulose Liq) 30 ml DAILY PRN PO SEVERE CONSITIPATION; Start at 14:00 Levothyroxine Sodium (Synthroid) 50 mcg DAILY@0600 PO Last administered on 03/06 04:29; Start 03/03/17 at 06:00 Magnesium Hydroxide (Milk Of Magnesia Liq) 30 ml Q12H PRN PO MILD - MODERATE CONSTIPATION Last administered on 03/07/17 13:32; Start 03/02/17 at 14:00 Miscellaneous Information 1 Q3D T-DERMAL ; Start 03/08/17 at 17:00 Morphine Sulfate (Morphine Inj) 4 mg ONCE ONCE IV PUSH Last administered on 13:17; Start 03/02/17 at 13:00; Stop 03/02/17 at 13:01; Status DC Naloxone HCl (Narcan Inj) 0.4 mg UNSCH PRN IV SEE LABEL COMMENTS; Start at 14:00 Ondansetron HCl (Zofran Inj) 4 mg Q6H PRN IVP NAUSEA OR VOMITING; Start at 14:00 Pregabalin (Lyrica) 75 mg Q12HR PO Last administered on 03/07/17 09:18; Start 03/03/17 at 09:00 Senna/Docusate Sodium (Meryl-Colace) 1 tab BID PO Last administered on 09:18; Start 03/02/17 at 21:00 Sennosides (Senokot) 17.2 mg Q12H PRN PO MODERATE - SEVERE CONSTIPATION; Start 03/02/17 at 14:00 Sodium Chloride 1,000 ml @ 84 mls/hr [id number] IV Last administered on 09:19; Start 03/05/17 at 11:00 Sodium Chloride (NS Flush) 2 ml BID IV FLUSH Last administered on 03/07/17 09: 18; Start 03/02/17 at 21:00 Sodium Chloride (Sodium Chloride) 1 gm TIDPC PO Last administered on 03/07/17 18:43; Start 03/02/17 at 18:30 Assessment and Plan Problem List: (1) Back pain ICD Codes: M54.9 - Dorsalgia, unspecified Plan: I doubt her discomfort can be any better controlled than it is now recomend dc home with C when cleared by the [facility] (2) Hypertension ICD Codes: I10 - Essential (primary) hypertension Assessment and Plan back pain intermittant has fentanyl now neutropenic precautions started Discharge Planning home with homehealth when cleared by heme Kelechi Mejia DO Mar 07, 2017 19:29
[2017-03-07 20:00] VITALS: BP 129/58; PULSE 83; RESP 16; TEMP 98.2; O2SAT 97
[2017-03-08] VITALS (8 sets, daily range): BP systolic 103–138; BP diastolic 49–66; PULSE 82–92; RESP 16–18; TEMP 98–98.7; O2SAT 82–99
[2017-03-08] MEDS: HYDROmorphone HCL PF 1 MG/ML VIAL IV PUSH PRN (01:57)
[2017-03-08] MEDS: LEVOTHYROXINE SODIUM 50 MCG TAB PO SCH (05:09)
[2017-03-08] MEDS: ACETAMINOPHEN/HYDROcodone 325 MG/10 MG TAB PO PRN ×2 (06:12→19:59)
[2017-03-08 07:03] LABS: AUTOMATED NEUTROPHIL # 10.7 TH/MM3 (1.8-7.7); BASOPHIL % 0.3 % (0.0-2.0); EOSINOPHIL % 0.1 % (0.0-4.0); HEMATOCRIT 28.3 % (35.0-46.0); LYMPH % 7.8 % (9.0-44.0); MEAN CELL VOLUME 90.3 FL (80.0-100.0); MEAN CORPUSCULAR HGB CONC 33.3 % (32.0-36.0); NEUT % 79.8 % (16.0-70.0); PLATELET COUNT 125 TH/MM3 (150-450); RED BLOOD COUNT 3.14 MIL/MM3 (4.00-5.30); RED CELL DISTRIBUTION WIDTH 17.6 % (11.6-17.2); WHITE BLOOD COUNT 13.4 TH/MM3 (4.0-11.0)
[2017-03-08 07:10] LABS: HEMO FLAGS AUTO DIFF
--- NOTE | 2017-03-08 08:31 | PD.ONC.PN ---
Subjective Subjective Remarks no new c/o wants to go home. Objective Data Date Time Temp Pulse Resp B/P (MAP) Pulse Ox O2 Delivery O2 Flow Rate FiO2 03/08/17 04:00 98.1 86 17 128/57 (80) 97 03/08/17 02:52 94 2.00 03/08/17 01:35 93 Nasal Cannula 1.50 03/08/17 00:00 98.0 92 18 117/65 (82) 93 03/07/17 21:38 97 Nasal Cannula 2.00 03/07/17 20:00 98.2 83 16 129/58 (81) 97 03/07/17 18:41 99 Nasal Cannula 2.00 03/07/17 18:40 96.9 74 14 102/99 (100) 99 03/07/17 14:39 86 105/56 (72) 03/07/17 12:00 97.1 76 18 133/69 (90) 96 03/07/17 09:31 98 Nasal Cannula 3.00 03/08/17 03/08/17 03/08/17 06:59 14:59 22:59 Intake Total 240 ml Balance 240 ml Result Diagram: 03/08/17 0614 03/07/17 0702 Laboratory Results Laboratory Tests Test 03/08/17 06:14 White Blood Count 13.4 TH/MM3 Red Blood Count 3.14 MIL/MM3 Hemoglobin 9.4 GM/DL Hematocrit 28.3 % Mean Corpuscular Volume 90.3 FL Mean Corpuscular Hemoglobin 30.0 PG Mean Corpuscular Hemoglobin Concent 33.3 % Red Cell Distribution Width 17.6 % Platelet Count 125 TH/MM3 Mean Platelet Volume 8.8 FL Neutrophils (%) (Auto) 79.8 % Lymphocytes (%) (Auto) 7.8 % Monocytes (%) (Auto) 12.0 % Eosinophils (%) (Auto) 0.1 % Basophils (%) (Auto) 0.3 % Neutrophils # (Auto) 10.7 TH/MM3 Lymphocytes # (Auto) 1.0 TH/MM3 Monocytes # (Auto) 1.6 TH/MM3 Eosinophils # (Auto) 0.0 TH/MM3 Basophils # (Auto) 0.0 TH/MM3 CBC Comment AUTO DIFF Administered Medications Medications (Trade) Dose Ordered Sig/[place] Route PRN Reason Start Time Stop Time Status Last Admin Dose Admin Sodium Chloride (NS Flush) 2 ml BID IV FLUSH 03/02/17 21:00 03/07/17 09:18 Senna/Docusate Sodium (Meryl-Colace) 1 tab BID PO 03/02/17 21:00 03/07/17 21:38 Magnesium Hydroxide (Milk Of Magnpeter Liq) 30 ml Q12H PRN PO MILD - MODERATE CONSTIPATION 03/02/17 14:00 03/07/17 13:32 Cholecalciferol (Vitamin D3) 1,000 units DAILY PO 03/03/17 09:00 03/07/17 09:19 Demeclocycline HCl (Declomycin) 300 mg Q12HR PO 03/02/17 21:00 03/07/17 21:37 Acetaminophen/ Hydrocodone Bitart ([place] 10-325 Mg) 1 tab Q4H PRN PO PAIN 1-10 03/02/17 14:00 03/08/17 06:12 Levothyroxine Sodium (Synthroid) 50 mcg DAILY@0600 PO 03/03/17 06:00 03/08/17 05:09 Sodium Chloride (Sodium Chloride) 1 gm TIDPC PO 03/02/17 18:30 03/07/17 18:43 Pregabalin (Lyrica) 75 mg Q12HR PO 03/03/17 09:00 03/07/17 21:37 Calcium Carbonate (Tums Chew) 500 mg Q4H PRN CHEW INDIGESTION 03/04/17 01:15 03/05/17 09:27 Hydromorphone HCl (Dilaudid Pf Inj) 1 mg Q4H PRN IV PUSH PAIN SCALE 6-10 03/04/17 16:45 03/08/17 01:57 Fentanyl (Duragesic 25 Mcg Patch.72 Hr) 1 patch Q3D T-DERMAL 03/05/17 17:00 03/05/17 18:08 Objective Remarks GENERAL: Well-nourished, well-developed patient. SKIN: Warm and dry. HEAD: Normocephalic. EYES: No scleral icterus. No injection or drainage. NECK: Supple, trachea midline. No JVD or lymphadenopathy. LYMPHATIC: No adenopathy. CARDIOVASCULAR: Regular rate and rhythm without murmurs. RESPIRATORY: Breath sounds equal bilaterally. No accessory muscle use. GASTROINTESTINAL: Abdomen soft, non-tender, nondistended. EXTREMITIES: No cyanosis, or edema. MUSCULOSKELETAL: Adequate muscle tone. NEUROLOGICAL: No obvious focal deficit. Awake, alert, and oriented x3. PSYCHIATRIC: Appropriate mood and affect; insight and judgment normal. Assessment/Plan Problem List: (1) Small cell lung cancer ICD Codes: C34.90 - Malignant neoplasm of unspecified part of unspecified bronchus or lung Status: Acute Plan: 03/08 Neutropenia resolved. neupogen stopped yesterday. Pt has completed XRT she is due for chemo but she wants to dfer it. Reschedule appt from today to wednesday at [facility] office for chemo. Clear to d/c sign off Available prn 03/05/17: Continue Neupogen. Once counts improved she may be eligible for kyphoplasty to control her pain. -- Original diagnosis was in September 2016 with a limited stage -- She has been tolerating concurrent radiation and chemotherapy. (2) Compression fracture of spine ICD Codes: M48.50XA - Collapsed vertebra, not elsewhere classified, site unspecified, initial encounter for fracture Plan: -- The patient suffered a back injury while walking outside her house -- She was evaluated by orthopedics for possible kyphoplasty -- No surgical plans until she is no longer neutropenic Plan Domenic Rowley MD Mar 08, 2017 08:31
[2017-03-08] MEDS: DOCUSATE SODIUM 50 MG/SENNA 8.6 MG TAB PO SCH ×2 (09:17→19:59)
[2017-03-08] MEDS: SODIUM CHLORIDE 0.9% FLUSH 10 ML FLUSH IV FLUSH SCH ×2 (09:17→19:59)
[2017-03-08] MEDS: PREGABALIN 75 MG CAP PO SCH ×2 (09:18→19:58)
[2017-03-08] MEDS: DEMECLOCYCLINE HCL 150 MG TAB PO SCH ×2 (09:18→19:59)
[2017-03-08] MEDS: SODIUM CHLORIDE 1 GRAM TAB PO SCH ×3 (09:18→19:58)
[2017-03-08] MEDS: CHOLECALCIFEROL (VIT D3) 1000 UNIT TAB PO SCH (09:18)
[2017-03-08 10:41] LABS: BANDS 40 % (0-6); METAMYELOCYTES 1 % (0-1); NEUTROPHIL # MANUAL DIFF 12.6 TH/MM3 (1.8-7.7); OVALOCYTES 1+ (NORMAL); PLATELET ESTIMATE SMEAR LOW (NORMAL); PLATELET MORPHOLOGY NORMAL (NORMAL); POLYS (SEG NEUTROPHILS) 53 % (16-70); TOXIC GRANULATION 2+ (NORMAL); WBC DIFF SAMPLE 100
[2017-03-08 10:42] LABS: SCAN/DIFF FINAL DIFF MANUAL
[2017-03-08] MEDS ORDERED: VITA100018 PO (11:11)
[2017-03-08] MEDS ORDERED: SODI1TAB PO (11:11)
[2017-03-08] MEDS ORDERED: DEME150T2 PO (11:11)
[2017-03-08] MEDS ORDERED: LEVO50TA4 PO (11:11)
--- NOTE | 2017-03-08 11:18 | HHI.DS ---
Discharge Summary Admission Date Mar 02, 2017 at 14:07 Discharge Date: Mar 08, 2017 Admitting Diagnosis Intractable pain (1) Small cell lung cancer ICD Codes: C34.90 - Malignant neoplasm of unspecified part of unspecified bronchus or lung Status: Acute (2) Hypothyroid ICD Codes: E03.9 - Hypothyroidism, unspecified (3) Compression fracture of spine ICD Codes: M48.50XA - Collapsed vertebra, not elsewhere classified, site unspecified, initial encounter for fracture (4) Pancytopenia ICD Codes: D61.818 - Other pancytopenia Brief History 76yo F with PMH of lung CA s/p radiation therapy and now on chemotherapy presents to the ED with c/o back pain since last week. Pt states she rolled off the bed last week and has been that is midline and worst with movement in mid thoracic and upper lumbar spine region. Denies any head trauma, fever, chest pain, sob, n/v, abdominal pain, focal weakness or numbness. Pt follows with Dr. Carrero and last chemo was 02/17/17. CBC/BMP: 03/08/17 0614 03/07/17 0702 Significant Findings Laboratory Tests Test 03/06/17 07:24 03/07/17 07:02 03/08/17 06:14 White Blood Count 11.8 TH/MM3 (4.0-11.0) 15.8 TH/MM3 (4.0-11.0) 13.4 TH/MM3 (4.0-11.0) Red Blood Count 3.20 MIL/MM3 (4.00-5.30) 3.16 MIL/MM3 (4.00-5.30) 3.14 MIL/MM3 (4.00-5.30) Hemoglobin 10.0 GM/DL (11.6-15.3) 9.5 GM/DL (11.6-15.3) 9.4 GM/DL (11.6-15.3) Hematocrit 29.0 % (35.0-46.0) 28.4 % (35.0-46.0) 28.3 % (35.0-46.0) Platelet Count 89 TH/MM3 (150-450) 111 TH/MM3 (150-450) 125 TH/MM3 (150-450) Neutrophils (%) (Auto) 81.7 % (16.0-70.0) 84.1 % (16.0-70.0) 79.8 % (16.0-70.0) Lymphocytes (%) (Auto) 7.3 % (9.0-44.0) 5.6 % (9.0-44.0) 7.8 % (9.0-44.0) Monocytes (%) (Auto) 10.0 % (0.0-8.0) 10.0 % (0.0-8.0) 12.0 % (0.0-8.0) Neutrophils # (Auto) 9.6 TH/MM3 (1.8-7.7) 13.3 TH/MM3 (1.8-7.7) 10.7 TH/MM3 (1.8-7.7) Lymphocytes # (Auto) 0.9 TH/MM3 (1.0-4.8) 0.9 TH/MM3 (1.0-4.8) Monocytes # (Auto) 1.2 TH/MM3 (0-0.9) 1.6 TH/MM3 (0-0.9) 1.6 TH/MM3 (0-0.9) Band Neutrophils % 30 % (0-6) 29 % (0-6) 40 % (0-6) Lymphocytes % 5 % (9-44) 2 % (9-44) 5 % (9-44) Neutrophils # (Manual) 10.3 TH/MM3 (1.8-7.7) 14.5 TH/MM3 (1.8-7.7) 12.6 TH/MM3 (1.8-7.7) Myelocytes 1 % (0-0) Platelet Estimate LOW (NORMAL) LOW (NORMAL) LOW (NORMAL) Ovalocytes 1+ (NORMAL) 1+ (NORMAL) 1+ (NORMAL) Creatinine 0.49 MG/DL (0.50-1.00) Random Glucose 57 MG/DL (74-106) Sodium Level 135 MEQ/L (136-145) Carbon Dioxide Level 20.7 MEQ/L (21.0-32.0) Metamyelocytes 5 % (0-1) Toxic Granulation 1+ (NORMAL) 2+ (NORMAL) Dohle Bodies PRESENT (NONE SEEN) Platelet Morphology Comment ENLARGED (NORMAL) Acanthocytes OCC (NORMAL) Blood Urea Nitrogen 5 MG/DL (7-18) Red Cell Distribution Width 17.6 % (11.6-17.2) PE at Discharge GENERAL: Alert and cooperative SKIN: Warm and dry. HEAD: Normocephalic. EYES: No scleral icterus. No injection or drainage. NECK: Supple, trachea midline. No JVD or lymphadenopathy. CARDIOVASCULAR: Regular rate and rhythm without murmurs, gallops, or rubs. RESPIRATORY: Breath sounds equal bilaterally. No accessory muscle use. GASTROINTESTINAL: Abdomen soft, non-tender, nondistended. MUSCULOSKELETAL: No cyanosis, or edema. BACK: Nontender without obvious deformity. No CVA tenderness. Hospital Course 76yo F with PMH of lung CA s/p radiation therapy and now on chemotherapy presents to the ED with c/o back pain since last week. Pt states she rolled off the bed last week and has been that is midline and worst with movement in mid thoracic and upper lumbar spine region. Denies any head trauma, fever, chest pain, sob, n/v, abdominal pain, focal weakness or numbness. Pt follows with Dr. Carrero and last chemo was 02/17/17. Ortho and oncology consulted during her stay. No intervention recommended per ortho on compression fractures and PT and OT ordered. Patient also placed on Fentanyl patch with norco for breakthrough pain. Patient was also found to be pancytopenic during her stay and Neupogen ordered. Cleared for discharge per hem/onc. Encouraged patient to follow up in office in 1 week. Pain medication prescriptions left per . Discharged to SNF Pt Condition on Discharge: Good Discharge Disposition: Discharge to SNF Discharge Instructions DIET: Follow Instructions for: As Tolerated, No Restrictions Activities you can perform: Regular-No Restrictions Follow up Referrals: Appointment for Follow Up @ Oncology PCP Follow-up @ [facility] Continued Medications: Cholecalciferol (Vitamin D3) 1,000 Unit Tab 1000 UNITS PO DAILY for Nutritional Supplement for 30 Days, #1 BOTTLE 0 Refills (This prescription has been renewed) Demeclocycline (Demeclocycline) 150 Mg Tab 300 MG PO Q12HR for Electrolyte Replacement for 30 Days, #60 TAB (This prescription has been renewed) Hydrocodone-Acetaminophen ([place]) 10-325 Mg Tab 1 TAB PO Q4H PRN for PAIN, TAB 0 Refills Ipratropium-Albuterol Neb (Duoneb) 0.5-2.5 Mg/3 Ml Neb 3 ML NEB Q6HR PRN for SHORTNESS OF BREATH, #30 NEBULE 0 Refills Levothyroxine (Levothyroxine) 50 Mcg Tab 50 MCG PO DAILY for Thyroid for 30 Days, #30 TAB 0 Refills (This prescription has been renewed) Sodium Chloride (Sodium Chloride) 1 Gm Tab 1 GM PO TIDPC for Electrolyte Replacement for 30 Days, #90 TAB (This prescription has been renewed) Cheryl Parra Mar 08, 2017 11:18
[2017-03-08] MEDS ORDERED: REMOVE OLD DURAGESIC (FENTANYL) PATCH T-DERMAL SCH (17:00)
[2017-03-08] MEDS: fentaNYL 25 MCG/HR PATCH T-DERMAL SCH (20:04)
[2017-03-09 00:07] VITALS: BP 153/72; PULSE 85; RESP 16; TEMP 98.5; O2SAT 96
[2017-03-09 04:13] VITALS: BP 120/56; PULSE 77; RESP 16; TEMP 97.8; O2SAT 98
[2017-03-09] MEDS: LEVOTHYROXINE SODIUM 50 MCG TAB PO SCH (05:17)
[2017-03-09] MEDS: ACETAMINOPHEN/HYDROcodone 325 MG/10 MG TAB PO PRN ×3 (05:27→15:40)
[2017-03-09] MEDS: DEMECLOCYCLINE HCL 150 MG TAB PO SCH (07:33)
[2017-03-09] MEDS: PREGABALIN 75 MG CAP PO SCH ×2 (07:34→09:00)
[2017-03-09] MEDS: DOCUSATE SODIUM 50 MG/SENNA 8.6 MG TAB PO SCH (07:34)
[2017-03-09] MEDS: SODIUM CHLORIDE 1 GRAM TAB PO SCH ×2 (07:34→12:23)
[2017-03-09] MEDS: CHOLECALCIFEROL (VIT D3) 1000 UNIT TAB PO SCH (07:34)
[2017-03-09 08:00] VITALS: BP 134/59; PULSE 83; RESP 20; TEMP 97.7; O2SAT 95
[2017-03-09] MEDS: SODIUM CHLORIDE 0.9% FLUSH 10 ML FLUSH IV FLUSH SCH (09:00)
[2017-03-09] MEDS ORDERED: OXYGENDME NAS.CANULA (09:40)
--- NOTE | 2017-03-09 09:50 | HHI.DS ---
Discharge Summary Admission Date Mar 02, 2017 at 14:07 Discharge Date: Mar 09, 2017 Admitting Diagnosis Intractable pain (1) Small cell lung cancer ICD Codes: C34.90 - Malignant neoplasm of unspecified part of unspecified bronchus or lung Status: Acute (2) Hypothyroid ICD Codes: E03.9 - Hypothyroidism, unspecified (3) Compression fracture of spine ICD Codes: M48.50XA - Collapsed vertebra, not elsewhere classified, site unspecified, initial encounter for fracture (4) Pancytopenia ICD Codes: D61.818 - Other pancytopenia Brief History 76yo F with PMH of lung CA s/p radiation therapy and now on chemotherapy presents to the ED with c/o back pain since last week. Pt states she rolled off the bed last week and has been that is midline and worst with movement in mid thoracic and upper lumbar spine region. Denies any head trauma, fever, chest pain, sob, n/v, abdominal pain, focal weakness or numbness. Pt follows with Dr. Carrero and last chemo was 02/17/17. CBC/BMP: 03/08/17 0614 03/07/17 0702 Significant Findings Laboratory Tests Test 03/07/17 07:02 03/08/17 06:14 White Blood Count 15.8 TH/MM3 (4.0-11.0) 13.4 TH/MM3 (4.0-11.0) Red Blood Count 3.16 MIL/MM3 (4.00-5.30) 3.14 MIL/MM3 (4.00-5.30) Hemoglobin 9.5 GM/DL (11.6-15.3) 9.4 GM/DL (11.6-15.3) Hematocrit 28.4 % (35.0-46.0) 28.3 % (35.0-46.0) Platelet Count 111 TH/MM3 (150-450) 125 TH/MM3 (150-450) Neutrophils (%) (Auto) 84.1 % (16.0-70.0) 79.8 % (16.0-70.0) Lymphocytes (%) (Auto) 5.6 % (9.0-44.0) 7.8 % (9.0-44.0) Monocytes (%) (Auto) 10.0 % (0.0-8.0) 12.0 % (0.0-8.0) Neutrophils # (Auto) 13.3 TH/MM3 (1.8-7.7) 10.7 TH/MM3 (1.8-7.7) Lymphocytes # (Auto) 0.9 TH/MM3 (1.0-4.8) Monocytes # (Auto) 1.6 TH/MM3 (0-0.9) 1.6 TH/MM3 (0-0.9) Band Neutrophils % 29 % (0-6) 40 % (0-6) Lymphocytes % 2 % (9-44) 5 % (9-44) Neutrophils # (Manual) 14.5 TH/MM3 (1.8-7.7) 12.6 TH/MM3 (1.8-7.7) Metamyelocytes 5 % (0-1) Toxic Granulation 1+ (NORMAL) 2+ (NORMAL) Dohle Bodies PRESENT (NONE SEEN) Platelet Estimate LOW (NORMAL) LOW (NORMAL) Platelet Morphology Comment ENLARGED (NORMAL) Ovalocytes 1+ (NORMAL) 1+ (NORMAL) Acanthocytes OCC (NORMAL) Blood Urea Nitrogen 5 MG/DL (7-18) Red Cell Distribution Width 17.6 % (11.6-17.2) PE at Discharge GENERAL: Alert and cooperative SKIN: Warm and dry. HEAD: Normocephalic. EYES: No scleral icterus. No injection or drainage. NECK: Supple, trachea midline. No JVD or lymphadenopathy. CARDIOVASCULAR: Regular rate and rhythm without murmurs, gallops, or rubs. RESPIRATORY: Breath sounds equal bilaterally. No accessory muscle use. GASTROINTESTINAL: Abdomen soft, non-tender, nondistended. MUSCULOSKELETAL: No cyanosis, or edema. BACK: Nontender without obvious deformity. No CVA tenderness. Hospital Course 76yo F with PMH of lung CA s/p radiation therapy and now on chemotherapy presents to the ED with c/o back pain since last week. Pt states she rolled off the bed last week and has been that is midline and worst with movement in mid thoracic and upper lumbar spine region. Denies any head trauma, fever, chest pain, sob, n/v, abdominal pain, focal weakness or numbness. Pt follows with Dr. Carrero and last chemo was 02/17/17. Ortho and oncology consulted during her stay. No intervention recommended per ortho on compression fractures and PT and OT ordered. Patient also placed on Fentanyl patch with norco for breakthrough pain. Patient was also found to be pancytopenic during her stay and Neupogen ordered. Cleared for discharge per hem/onc. Encouraged patient to follow up in office in 1 week. Pain medication prescriptions left per . Discharged to SNF also OK to discharge home with C. Discussed with patient this AM and she thought she did not have a place to go home. Discussed with outsole caser discharge pending arrangements Pt Condition on Discharge: Good Discharge Disposition: Disch w/ Home Health Serv Discharge Instructions DIET: Follow Instructions for: As Tolerated, No Restrictions Activities you can perform: Regular-No Restrictions Follow up Referrals: Appointment for Follow Up @ Oncology PCP Follow-up @ [facility] New Medications: Oxygen (O2) (Oxygen (O2)) Device LITER [email or web address] CONTINUOUS for Prevent Hypoxemia, #2 2 Refills Oxygen Concentrator Portable Gaseous 2 L/min via Nasal Canula Continuous For 99 months Continued Medications: Cholecalciferol (Vitamin D3) 1,000 Unit Tab 1000 UNITS PO DAILY for Nutritional Supplement for 30 Days, #1 BOTTLE 0 Refills (This prescription has been renewed) Demeclocycline (Demeclocycline) 150 Mg Tab 300 MG PO Q12HR for Electrolyte Replacement for 30 Days, #60 TAB (This prescription has been renewed) Hydrocodone-Acetaminophen ([place]) 10-325 Mg Tab 1 TAB PO Q4H PRN for PAIN, TAB 0 Refills Ipratropium-Albuterol Neb (Duoneb) 0.5-2.5 Mg/3 Ml Neb 3 ML NEB Q6HR PRN for SHORTNESS OF BREATH, #30 NEBULE 0 Refills Levothyroxine (Levothyroxine) 50 Mcg Tab 50 MCG PO DAILY for Thyroid for 30 Days, #30 TAB 0 Refills (This prescription has been renewed) Sodium Chloride (Sodium Chloride) 1 Gm Tab 1 GM PO TIDPC for Electrolyte Replacement for 30 Days, #90 TAB (This prescription has been renewed) Cheryl Parra Mar 09, 2017 09:50
[2017-03-09 12:00] VITALS: BP 128/64; PULSE 85; RESP 16; TEMP 97.9; O2SAT 95
[2017-03-09 16:00] VITALS: BP 124/62; PULSE 82; RESP 16; TEMP 97.7; O2SAT 95
== END 2017-03-09 18:21 | disposition home health service (06) | DRG 542 ==
LOC: NEPC 09:50 → NEDA 13:25 → OBSVTOIN 14:07 → HOCB 18:19
PROVIDERS: ADMIT Family Medicine; ATTEND Family Medicine
DX: M48.54XA Collapsed vertebra, not elsewhere classified, thoracic region, initial encounter for fracture (principal); D61.810 Antineoplastic chemotherapy induced pancytopenia; E22.2 Syndrome of inappropriate secretion of antidiuretic hormone; I95.9 Hypotension, unspecified; C34.90 Malignant neoplasm of unspecified part of unspecified bronchus or lung; J44.9 Chronic obstructive pulmonary disease, unspecified; M48.56XA Collapsed vertebra, not elsewhere classified, lumbar region, initial encounter for fracture; I10 Essential (primary) hypertension; E06.3 Autoimmune thyroiditis; W06.XXXA Fall from bed, initial encounter; Y93.89 Activity, other specified; Y92.003 Bedroom of unspecified non-institutional (private) residence as the place of occurrence of the external cause; M19.90 Unspecified osteoarthritis, unspecified site; F41.9 Anxiety disorder, unspecified; F32.9 Major depressive disorder, single episode, unspecified; Z92.3 Personal history of irradiation; Z72.0 Tobacco use; R26.2 Difficulty in walking, not elsewhere classified; Z81.8 Family history of other mental and behavioral disorders; M40.204 Unspecified kyphosis, thoracic region; T45.1X5A Adverse effect of antineoplastic and immunosuppressive drugs, initial encounter; M51.26 Other intervertebral disc displacement, lumbar region
CPT/HCPCS: 72128; 72131; 76937; 80048; 80053; 83735; 84443; 85007; 85027; 96374; 96376; G8987-GP; G8988-GP; J1170; J1442; J2270; J7030

== ENCOUNTER 2017-04-08 12:50 | Emergency (ER) | payer MEDICARE, MEDICAID ==
[~2017-04-08] VITALS: Ht 154.9 cm; Wt 55.0 kg
[~2017-04-08 12:50] MED LIST changes: -FAMO20TA2 PO; -HYDR-3288 PO; +HYDR-3366 PO; -MIDO5TAB PO; -SENN1TAB PO; -TRAM50TA PO
[2017-04-08 12:53] VITALS: BP 128/71; PULSE 96; RESP 20; TEMP 97.4; O2SAT 95
[2017-04-08] MEDS ORDERED: SODIUM CHLOR 0.9% 1000 ML INJ 1,000 ML IV SCH (13:30)
[2017-04-08 13:36] VITALS: BP 137/67; PULSE 82; RESP 17; TEMP 97.8; O2SAT 99
--- NOTE | 2017-04-08 13:42 | PD ---
HPI Chief Complaint: GI Complaint Time Seen by Provider: 13:15 Travel History International Travel<30 days: No Contact w/Intl Traveler<30days: No Traveled to known affect area: No History of Present Illness HPI 76 years old female complaining abdominal cramping, vomiting and dizziness. Patient has history of small cell lung cancer and on chemotherapy. Patient was on radiation recently finished with radiation therapy. Patient started having abdominal cramping with diarrhea for the past 5 days. Patient states that she has a productive cough recently. Patient was seen by Dr. Rowley, oncologist 2 days ago and was put on Augmentin. Patient states that the diarrhea and abdominal cramping was worse with Augmentin. Augmentin was stopped and patient was put on Cipro yesterday. Patient states that she has intermittent abdominal cramps with diarrhea. Patient denies any blood or mucus in the stool. patient denies any fever chills. Patient denies any headache. Patient denies any chest pain or shortness of breath. Patient denies any focal weakness or numbness of the extremity. PFSH Past Medical History Arthritis: Yes Asthma: No Autoimmune Disease: No Anxiety: Yes Depression: Yes Cancer: Yes (Lung currently on Chemo) Cardiovascular Problems: No Chemotherapy: Yes COPD: Yes Diabetes: No Diminished Hearing: No Endocrine: Yes Genitourinary: No Immune Disorder: No Implanted Vascular Access Dvce: Yes (port) Musculoskeletal: Yes Neurologic: No Psychiatric: Yes Reproductive: No Respiratory: Yes Radiation Therapy: Yes (complete) Sleep Apnea: No Thyroid Disease: Yes (Carlos's) Tetanus Vaccination: > 5 Years Influenza Vaccination: Yes ?: Not : 0 Para: 0 Past Surgical History Abdominal Surgery: No AICD: No Arteriovenous Shunt: No Cardiac Surgery: No Ear Surgery: No Endocrine Surgery: No Eye Surgery: No Genitourinary Surgery: No Gynecologic Surgery: No Insulin Pump: No Joint Replacement: No Oral Surgery: No Pacemaker: No Thoracic Surgery: No Other Surgery: Yes (Insertion of port, otherwise no other surgeries.) Social History Alcohol Use: No Tobacco Use: Yes (ocassionally) Substance Use: No Allergies-Medications (Allergen,Severity, Reaction): Coded Allergies: shellfish derived (Unverified Allergy, Intermediate, hives, 04/08/17) amoxicillin (Verified Adverse Reaction, Severe, DIARRHEA, 04/08/17) clavulanic acid (Verified Adverse Reaction, Severe, DIARRHEA, 04/08/17) Reported Meds & Prescriptions Reported Meds & Active Scripts Active Sodium Chloride 1 Gm Tab 1 Gm PO TIDPC 30 Days Vitamin D3 (Cholecalciferol) 1,000 Unit Tab 1,000 Units PO DAILY 30 Days Levothyroxine (Levothyroxine Sodium) 50 Mcg Tab 50 Mcg PO DAILY 30 Days Reported [place] (Hydrocodone-Acetaminophen) 10-325 Mg Tab 1 Tab PO Q4H PRN Duoneb (Ipratropium-Albuterol Neb) 0.5-2.5 Mg/3 Ml Neb 3 Ml NEB Q6HR PRN Review of Systems General / Constitutional: No: Fever Eyes: No: Visual changes HENT: No: Headaches Cardiovascular: No: Chest Pain or Discomfort Respiratory: Positive: Cough, No: Shortness of Breath Gastrointestinal: Positive: Diarrhea, Abdominal Pain Genitourinary: No: Dysuria Musculoskeletal: No: Pain Skin: No Rash Neurologic: No: Weakness Psychiatric: No: Depression Endocrine: No: Polydipsia Hematologic/Lymphatic: No: Easy Bruising Physical Exam Narrative GENERAL: Well-nourished, well-developed patient. SKIN: Focused skin assessment warm/dry. HEAD: Normocephalic. EYES: No scleral icterus. No injection or drainage. NECK: Supple, trachea midline. No JVD or lymphadenopathy. CARDIOVASCULAR: Regular rate and rhythm without murmurs, gallops, or rubs. RESPIRATORY: Breath sounds equal bilaterally. No accessory muscle use. GASTROINTESTINAL: Abdomen soft, nondistended. Patient has mild diffuse tenderness over the abdomen. No rebound tenderness. No mass. MUSCULOSKELETAL: No cyanosis, or edema. BACK: Nontender without obvious deformity. No CVA tenderness. Neurologic exam normal. Data Data Last Documented VS Vital Signs Date Time Temp Pulse Resp B/P (MAP) Pulse Ox O2 Delivery O2 Flow Rate FiO2 04/08/17 17:36 97.9 87 16 136/83 (100) 99 Nasal Cannula 2.00 Orders Orders Electrocardiogram (04/08/17 13:30) Complete Blood Count With Diff (04/08/17 13:30) Comprehensive Metabolic Panel (04/08/17 13:30) Prothrombin Time / Inr (Pt) (04/08/17 13:30) Act Partial Throm Time (Ptt) (04/08/17 13:30) Lipase (04/08/17 13:30) Urinalysis - C+S If Indicated (04/08/17 13:30) Chest, Single Ap (04/08/17 13:30) Iv Access Insert/Monitor (04/08/17 13:30) Ecg Monitoring (04/08/17 13:30) Oximetry (04/08/17 13:30) Sodium Chlor 0.9% 1000 Ml Inj (Ns 1000 M (04/08/17 13:30) Morphine Inj (Morphine Inj) (04/08/17 15:15) Ondansetron Inj (Zofran Inj) (04/08/17 15:15) Labs Laboratory Tests Test 04/08/17 13:40 04/08/17 16:05 White Blood Count 11.9 TH/MM3 Red Blood Count 3.33 MIL/MM3 Hemoglobin 10.1 GM/DL Hematocrit 30.0 % Mean Corpuscular Volume 90.3 FL Mean Corpuscular Hemoglobin 30.3 PG Mean Corpuscular Hemoglobin Concent 33.6 % Red Cell Distribution Width 15.9 % Platelet Count 270 TH/MM3 Mean Platelet Volume 8.3 FL Neutrophils (%) (Auto) 73.4 % Lymphocytes (%) (Auto) 13.4 % Monocytes (%) (Auto) 9.9 % Eosinophils (%) (Auto) 3.0 % Basophils (%) (Auto) 0.3 % Neutrophils # (Auto) 8.7 TH/MM3 Lymphocytes # (Auto) 1.6 TH/MM3 Monocytes # (Auto) 1.2 TH/MM3 Eosinophils # (Auto) 0.4 TH/MM3 Basophils # (Auto) 0.0 TH/MM3 CBC Comment DIFF FINAL Differential Comment Prothrombin Time 10.7 SEC Prothromb Time International Ratio 1.0 RATIO Activated Partial Thromboplast Time 28.5 SEC Blood Urea Nitrogen 7 MG/DL Creatinine 0.60 MG/DL Random Glucose 87 MG/DL Total Protein 6.6 GM/DL Albumin 2.8 GM/DL Calcium Level 8.9 MG/DL Alkaline Phosphatase 133 U/L Aspartate Amino Transf (AST/SGOT) 26 U/L Alanine Aminotransferase (ALT/SGPT) 31 U/L Total Bilirubin 0.2 MG/DL Sodium Level 138 MEQ/L Potassium Level 3.9 MEQ/L Chloride Level 105 MEQ/L Carbon Dioxide Level 27.7 MEQ/L Anion Gap 5 MEQ/L Estimat Glomerular Filtration Rate 97 ML/MIN Lipase 173 U/L Urine Color LIGHT-YELLOW Urine Turbidity CLEAR Urine pH 6.0 Urine Specific [place] 1.008 Urine Protein NEG mg/dL Urine Glucose (UA) NEG mg/dL Urine Ketones NEG mg/dL Urine Occult Blood NEG Urine Nitrite NEG Urine Bilirubin NEG Urine Urobilinogen LESS THAN 2.0 MG/DL Urine Leukocyte Esterase NEG Urine RBC LESS THAN 1 /hpf Urine WBC 1 /hpf Urine Mucus FEW /lpf Microscopic Urinalysis Comment CULT NOT INDICATED MDM Medical Decision Making Medical Screen Exam Complete: Yes Emergency Medical Condition: Yes Interpretation(s) Last Impressions Chest X-Ray 04/08/17 1330 Signed Impressions: Service Date/Time: March 13:43 - CONCLUSION: 1. Chronic interstitial lung disease without acute abnormality or significant interval change. John Dobbins MD 1800 p.m. CBC WBC 11.9. Hemoglobin 10.1 hematocrit 30.0. 73 neutrophil. CMP within normal limit. UA is negative. Differential Diagnosis Differential diagnosis including URI, bronchitis, pneumonia, gastroenteritis, gastritis, PUD, pancreatitis, colitis, UTI, pyelonephritis, nephrolithiasis, electrolyte imbalance, dehydration. Narrative Course 76 years old female with history of lung CA on chemotherapy, patient complains of productive cough and abdominal cramping and diarrhea. Mom was saline solution 1 25 cc an hour. Diagnosis Primary Impression: Bronchitis Additional Impression: Gastroenteritis Patient Instructions: General Instructions Additional Instructions: Continue with Cipro as directed. Lomotil as needed for diarrhea. Encouraged by mouth fluids. Follow-up with personal physician. Return if persistent problem or worse. Med/Other Pt SpecificInfo: Prescription(s) given Scripts Diphenoxylate-Atropine (Lomotil) 2.5-0.025 Mg Tab 1 TAB PO Q6H Y for DIARRHEA, #20 TAB 0 Refills Prov: Wenceslao Davis MD 04/08/17 Disposition: 01 DISCHARGE HOME Condition: Stable Wenceslao Davis MD Apr 08, 2017 13:42
[2017-04-08 13:59] VITALS: BP 137/67; PULSE 82; RESP 18; TEMP 97.9; O2SAT 99
[2017-04-08 14:04] LABS: AUTOMATED NEUTROPHIL # 8.7 TH/MM3 (1.8-7.7); BASOPHIL % 0.3 % (0.0-2.0); EOSINOPHIL # 0.4 TH/MM3 (0-0.4); HEMO FLAGS DIFF FINAL; LYMPH % 13.4 % (9.0-44.0); LYMPHOCYTE # 1.6 TH/MM3 (1.0-4.8); MEAN CELL VOLUME 90.3 FL (80.0-100.0); MEAN CORPUSCULAR HEMOGLOBIN 30.3 PG (27.0-34.0); MEAN CORPUSCULAR HGB CONC 33.6 % (32.0-36.0); MONO % 9.9 % (0.0-8.0); NEUT % 73.4 % (16.0-70.0); PLATELET COUNT 270 TH/MM3 (150-450); RED BLOOD COUNT 3.33 MIL/MM3 (4.00-5.30); RED CELL DISTRIBUTION WIDTH 15.9 % (11.6-17.2); WHITE BLOOD COUNT 11.9 TH/MM3 (4.0-11.0)
--- NOTE | 2017-04-08 14:09 | RADRPT ---
EXAM DATE/TIME: 04/08/2017 13:43 [facility] COMPARISON: CHEST SINGLE AP, December 24, 2016, 11:55. INDICATIONS : Cough MEDICAL HISTORY : Carcinoma, lung. Thyroid disease SURGICAL HISTORY : Infusaport ENCOUNTER: Initial ACUITY: 3 days PAIN SCORE: 0/10 LOCATION: chest FINDINGS: There is a stable right subclavian [id number] in place. Mild diffuse lower lobe predominant bilate ral interstitial prominence. No new focal pleural or parenchymal opacities. Cardiomediastinal contour s are stable. Remainder of the exam is unchanged. CONCLUSION: 1. Chronic interstitial lung disease without acute abnormality or significant interval change. John Dobbins MD on April 08, 2017 at 14:05 Board Certified Radiologist. This report was verified electronically.
[2017-04-08 14:18] LABS: APTT (PATIENT) 28.5 SEC (24.3-30.1); PROTHROMBIN TIME - PATIENT 10.7 SEC (9.8-11.6)
[2017-04-08 14:20] LABS: ALT (GPT) 31 U/L (10-53); ANION GAP 5 MEQ/L (5-15); AST (GOT) 26 U/L (15-37); BICARBONATE 27.7 MEQ/L (21.0-32.0); BLOOD UREA NITROGEN 7 MG/DL (7-18); CHLORIDE 105 MEQ/L (98-107); GLOMERULAR FILTRATION RATE 97 ML/MIN (>89); POTASSIUM 3.9 MEQ/L (3.5-5.1); SODIUM (NA) 138 MEQ/L (136-145)
[2017-04-08 14:21] LABS: ALKALINE PHOSPHATASE 133 U/L (45-117); TOTAL BILIRUBIN ADULT 0.2 MG/DL (0.2-1.0)
[2017-04-08] MEDS ORDERED: ONDANSETRON HCL 4 MG/2 ML VIAL IV PUSH ONE (15:15)
[2017-04-08] MEDS ORDERED: MORPHINE SULFATE 4 MG/ML INJ IV PUSH ONE (15:15)
[2017-04-08 16:00] VITALS: BP 126/81; PULSE 81; RESP 16; TEMP 97.8; O2SAT 99
[2017-04-08 16:58] LABS: BLOOD, URINE NEG (NEG); COMMENT (UR) CULT NOT INDICATED; CULTURE IF INDICATED CULT NOT INDICATED; GLUCOSE,URINE NEG (NEG); KETONE, URINE NEG (NEG); MUCUS URINE FEW /lpf (OCC); NITRITE,URINE NEG (NEG); URINE COLOR LIGHT-YELLOW (YELLW/STRAW)
[2017-04-08 17:36] VITALS: BP 136/83; PULSE 87; RESP 16; TEMP 97.9; O2SAT 99
[2017-04-08] MEDS ORDERED: LOMO2.5T PO (18:03)
[2017-04-08 18:30] VITALS: BP 128/81; TEMP 98
--- NOTE | 2017-04-09 10:39 | EKG ---
Date Performed: 04/08/2017 Time Performed: 13:47:38 PTAGE: 76 years EKG: Sinus rhythm WITH FREQUENT PACS Compared to previous tracing the rate is faster and PACs are now noted BORDERLINE ECG PREVIOUS TRACING : 12/24/2016 11.16 DOCTOR: Noble Chavez Interpretating Date/Time 04/09/2017 10:37:40
== END 2017-04-08 18:30 | disposition home or self-care (01) ==
LOC: NEPE 12:50
DX: J40 Bronchitis, not specified as acute or chronic (principal); K52.9 Noninfective gastroenteritis and colitis, unspecified; J44.9 Chronic obstructive pulmonary disease, unspecified
CPT/HCPCS: 71010; 80053; 81001; 83690; 85025; 85610; 85730; 93005; 96361; 96374; 96375; 99285; J1642; J2270; J2405; J7030

== ENCOUNTER 2017-07-26 09:41 | Inpatient (IN) | payer MEDICARE, MEDICAID ==
[2017-07-26] MEDS: ONDANSETRON HCL 4 MG/2 ML VIAL IV PUSH (10:21)
[2017-07-26] MEDS: HYDROmorphone HCL PF 1 MG/ML VIAL IV PUSH (10:22)
[2017-07-26 11:19] LABS: AUTOMATED NEUTROPHIL # 6.7 TH/MM3 (1.8-7.7); BASOPHIL % 0.4 % (0.0-2.0); EOSINOPHIL # 0.1 TH/MM3 (0-0.4); EOSINOPHIL % 1.5 % (0.0-4.0); HEMATOCRIT 32.5 % (35.0-46.0); HEMO FLAGS DIFF FINAL; HEMOGLOBIN 11.3 GM/DL (11.6-15.3); LYMPH % 10.6 % (9.0-44.0); LYMPHOCYTE # 0.9 TH/MM3 (1.0-4.8); MEAN CELL VOLUME 90.9 FL (80.0-100.0); MEAN CORPUSCULAR HEMOGLOBIN 31.8 PG (27.0-34.0); MEAN PLATELET VOLUME 8.1 FL (7.0-11.0); MONO % 10.5 % (0.0-8.0); MONOCYTE # 0.9 TH/MM3 (0-0.9); PLATELET COUNT 260 TH/MM3 (150-450); RED BLOOD COUNT 3.57 MIL/MM3 (4.00-5.30); WHITE BLOOD COUNT 8.7 TH/MM3 (4.0-11.0)
[2017-07-26 11:31] LABS: ALBUMIN 3.4 GM/DL (3.4-5.0); ANION GAP 10 MEQ/L (5-15); AST (GOT) 14 U/L (15-37); BLOOD UREA NITROGEN 10 MG/DL (7-18); CALCIUM 10.1 MG/DL (8.5-10.1); CHLORIDE 95 MEQ/L (98-107); CREATININE 0.53 MG/DL (0.50-1.00); GLOMERULAR FILTRATION RATE 112 ML/MIN (>89); GLUCOSE,RANDOM 102 MG/DL (74-106); POTASSIUM 4.2 MEQ/L (3.5-5.1); SODIUM (NA) 130 MEQ/L (136-145)
[2017-07-26 11:32] LABS: ALT (GPT) 17 U/L (10-53)
[2017-07-26 11:34] LABS: ALKALINE PHOSPHATASE 100 U/L (45-117); TOTAL BILIRUBIN ADULT 0.4 MG/DL (0.2-1.0); TOTAL PROTEIN 7.6 GM/DL (6.4-8.2)
[2017-07-26] MEDS ORDERED: BISACODYL 10 MG SUPP RECTAL (13:00)
[2017-07-26] MEDS ORDERED: LACTULOSE SYRUP 20 GM/30 ML CUP PO (13:00)
[2017-07-26] MEDS ORDERED: ACETAMINOPHEN 325 MG TAB PO (13:00)
[2017-07-26] MEDS ORDERED: SENNOSIDES 8.6 MG TAB PO (13:00)
[2017-07-26] MEDS ORDERED: ONDANSETRON HCL 4 MG/2 ML VIAL IVP (13:00)
[2017-07-26] MEDS ORDERED: NALOXONE HCL 0.4 MG/ML AMP IV PUSH (13:00)
[2017-07-26] MEDS ORDERED: SODIUM CHLORIDE 0.9% FLUSH 10 ML FLUSH IV FLUSH (13:00)
[2017-07-26] MEDS: ENOXAPARIN SODIUM 40 MG/0.4 ML SYRINGE SQ (14:34)
[2017-07-26] MEDS: SODIUM CHLORIDE 1 GRAM TAB PO (14:53)
[2017-07-26] MEDS: SODIUM CHLORIDE 0.9% FLUSH 10 ML FLUSH IV FLUSH (21:00)
[2017-07-26] MEDS: DOCUSATE SODIUM 50 MG/SENNA 8.6 MG TAB PO (21:00)
[2017-07-27 03:41] LABS: BACTERIA, URINE RARE /hpf; BILIRUBIN, URINE NEG (NEG); BLOOD, URINE NEG (NEG); CALCIUM OXALATE CRYSTALS,URINE MOD /hpf; GLUCOSE,URINE NEG (NEG); KETONE, URINE NEG (NEG); MUCUS URINE FEW /lpf (OCC); NITRITE,URINE NEG (NEG); PH, URINE 5.5 (5.0-8.5); URINE COLOR YELLOW (YELLW/STRAW); URINE LEUKOCYTE ESTERASE NEG (NEG)
[2017-07-27 03:44] LABS: COMMENT (UR) CULT NOT INDICATED; CULTURE IF INDICATED CULT NOT INDICATED
[2017-07-27 08:20] LABS: ALBUMIN 3.1 GM/DL (3.4-5.0); ALT (GPT) 15 U/L (10-53); ANION GAP 6 MEQ/L (5-15); AST (GOT) 18 U/L (15-37); BICARBONATE 30.2 MEQ/L (21.0-32.0); BLOOD UREA NITROGEN 13 MG/DL (7-18); CALCIUM 9.7 MG/DL (8.5-10.1); CHLORIDE 97 MEQ/L (98-107); CREATININE 0.58 MG/DL (0.50-1.00); GLOMERULAR FILTRATION RATE 101 ML/MIN (>89); GLUCOSE,RANDOM 90 MG/DL (74-106); POTASSIUM 4.5 MEQ/L (3.5-5.1); SODIUM (NA) 133 MEQ/L (136-145)
[2017-07-27 08:22] LABS: ALKALINE PHOSPHATASE 87 U/L (45-117); TOTAL BILIRUBIN ADULT 0.4 MG/DL (0.2-1.0)
[2017-07-27] MEDS ORDERED: RESP: ALBUTEROL 2.5 MG/IPRATROPIUM 0.5 MG NEB (PRN) NEB (09:15)
[2017-07-27] MEDS ORDERED: oxyCODONE/ACETAMINOPHEN 7.5 MG/325 MG TAB PO (10:00)
[2017-07-27] MEDS: DOCUSATE SODIUM 50 MG/SENNA 8.6 MG TAB PO ×2 (10:12→20:57)
[2017-07-27] MEDS: SODIUM CHLORIDE 1 GRAM TAB PO (10:12)
[2017-07-27] MEDS: HEPARIN SODIUM - SQ 10,000 UNITS/ML VIAL SQ ×2 (10:13→20:59)
[2017-07-27] MEDS: SODIUM CHLORIDE 0.9% FLUSH 10 ML FLUSH IV FLUSH ×2 (10:13→20:59)
[2017-07-27] MEDS: ACETAMINOPHEN/HYDROcodone 325 MG/7.5 MG TAB PO (20:59)
[2017-07-28] MEDS: ACETAMINOPHEN/HYDROcodone 325 MG/7.5 MG TAB PO ×4 (00:40→17:01)
[2017-07-28] MEDS: LEVOTHYROXINE SODIUM 50 MCG TAB PO (06:24)
[2017-07-28] MEDS: DOCUSATE SODIUM 50 MG/SENNA 8.6 MG TAB PO ×3 (09:00→22:00)
[2017-07-28] MEDS: HEPARIN SODIUM - SQ 10,000 UNITS/ML VIAL SQ ×4 (09:00→22:02)
[2017-07-28] MEDS: SODIUM CHLORIDE 0.9% FLUSH 10 ML FLUSH IV FLUSH ×2 (09:00→22:00)
[2017-07-28] MEDS: CHOLECALCIFEROL (VIT D3) 1000 UNIT TAB PO (11:20)
[2017-07-28] MEDS: SODIUM CHLORIDE 1 GRAM TAB PO (11:20)
[2017-07-28 21:27] LABS: AUTOMATED NEUTROPHIL # 4.4 TH/MM3 (1.8-7.7); BASOPHIL % 0.5 % (0.0-2.0); EOSINOPHIL # 0.2 TH/MM3 (0-0.4); EOSINOPHIL % 3.7 % (0.0-4.0); HEMATOCRIT 31.9 % (35.0-46.0); HEMO FLAGS DIFF FINAL; HEMOGLOBIN 11.1 GM/DL (11.6-15.3); LYMPH % 16.4 % (9.0-44.0); LYMPHOCYTE # 1.1 TH/MM3 (1.0-4.8); MEAN CORPUSCULAR HEMOGLOBIN 31.3 PG (27.0-34.0); MEAN CORPUSCULAR HGB CONC 34.8 % (32.0-36.0); MEAN PLATELET VOLUME 7.5 FL (7.0-11.0); MONO % 11.1 % (0.0-8.0); MONOCYTE # 0.7 TH/MM3 (0-0.9); NEUT % 68.3 % (16.0-70.0); PLATELET COUNT 277 TH/MM3 (150-450); RED BLOOD COUNT 3.55 MIL/MM3 (4.00-5.30); RED CELL DISTRIBUTION WIDTH 13.4 % (11.6-17.2); WHITE BLOOD COUNT 6.4 TH/MM3 (4.0-11.0)
[2017-07-28 21:50] LABS: INTERNATIONAL NORMALIZED RATIO 1.1 RATIO; PROTHROMBIN TIME - PATIENT 10.8 SEC (9.8-11.6)
[2017-07-28 21:54] LABS: ANION GAP 6 MEQ/L (5-15); BICARBONATE 27.7 MEQ/L (21.0-32.0); BLOOD UREA NITROGEN 17 MG/DL (7-18); CALCIUM 9.4 MG/DL (8.5-10.1); CHLORIDE 99 MEQ/L (98-107); CREATININE 0.59 MG/DL (0.50-1.00); GLOMERULAR FILTRATION RATE 99 ML/MIN (>89); GLUCOSE,RANDOM 125 MG/DL (74-106); POTASSIUM 3.8 MEQ/L (3.5-5.1); SODIUM (NA) 133 MEQ/L (136-145)
[2017-07-29] MEDS: ACETAMINOPHEN/HYDROcodone 325 MG/7.5 MG TAB PO ×4 (03:26→23:16)
[2017-07-29] MEDS: LEVOTHYROXINE SODIUM 50 MCG TAB PO (05:16)
[2017-07-29] MEDS: SODIUM CHLORIDE 1 GRAM TAB PO (09:00)
[2017-07-29] MEDS: SODIUM CHLORIDE 0.9% FLUSH 10 ML FLUSH IV FLUSH ×2 (09:02→23:17)
[2017-07-29] MEDS: DOCUSATE SODIUM 50 MG/SENNA 8.6 MG TAB PO ×2 (09:02→23:16)
[2017-07-29] MEDS: CHOLECALCIFEROL (VIT D3) 1000 UNIT TAB PO (09:02)
[2017-07-29] MEDS: BUPIVACAINE HCL PF 0.75% 30 ML VIAL (09:47)
[2017-07-29] MEDS ORDERED: PROPOFOL 500 MG/50 ML INJ 50 ML (10:06)
[2017-07-29] MEDS ORDERED: diphenhydrAMINE HCL 50 MG/ML VIAL (10:57)
[2017-07-29] MEDS: ceFAZolin 2 GM/50 ML BAG IV (11:18)
[2017-07-29] MEDS: GLYCOPYRROLATE 1 MG/5 ML SYRINGE IV PUSH (12:00)
[2017-07-29] MEDS: PHENYLEPH/NS 1000 MCG/10 ML SYR IV (12:00)
[2017-07-29] MEDS: PROPOFOL 200 MG/20 ML AMP IV (12:00)
[2017-07-29] MEDS: *MEPERIDINE 25 MG INJ VIAL PERIprocedural Use ONLY (13:42)
[2017-07-29] MEDS ORDERED: MIDAZOLAM HCL 2 MG/2 ML VIAL (14:18)
[2017-07-29] MEDS ORDERED: DO NOT ADM ANY ANTICOAGULANT DRUGS (14:30)
[2017-07-29] MEDS: HEPARIN SODIUM - SQ 10,000 UNITS/ML VIAL SQ (21:00)
[2017-07-30] MEDS: SODIUM CHLOR 0.45% 1000 ML INJ 1,000 ML IV ×2 (06:42→19:30)
[2017-07-30] MEDS: LEVOTHYROXINE SODIUM 50 MCG TAB PO (06:42)
[2017-07-30] MEDS: ACETAMINOPHEN/HYDROcodone 325 MG/7.5 MG TAB PO ×4 (08:51→23:51)
[2017-07-30] MEDS: CHOLECALCIFEROL (VIT D3) 1000 UNIT TAB PO (08:51)
[2017-07-30] MEDS: SODIUM CHLORIDE 1 GRAM TAB PO (08:51)
[2017-07-30] MEDS: SODIUM CHLORIDE 0.9% FLUSH 10 ML FLUSH IV FLUSH ×2 (08:52→20:00)
[2017-07-30] MEDS: DOCUSATE SODIUM 50 MG/SENNA 8.6 MG TAB PO ×2 (08:52→19:58)
[2017-07-30] MEDS: HEPARIN SODIUM - SQ 10,000 UNITS/ML VIAL SQ ×2 (08:53→20:02)
[2017-07-30 13:19] LABS: AUTOMATED NEUTROPHIL # 4.7 TH/MM3 (1.8-7.7); BASOPHIL % 0.3 % (0.0-2.0); EOSINOPHIL # 0.2 TH/MM3 (0-0.4); EOSINOPHIL % 3.5 % (0.0-4.0); HEMATOCRIT 27.9 % (35.0-46.0); HEMO FLAGS DIFF FINAL; HEMOGLOBIN 9.8 GM/DL (11.6-15.3); LYMPHOCYTE # 0.9 TH/MM3 (1.0-4.8); MEAN CELL VOLUME 90.3 FL (80.0-100.0); MEAN CORPUSCULAR HEMOGLOBIN 31.8 PG (27.0-34.0); MEAN CORPUSCULAR HGB CONC 35.2 % (32.0-36.0); MEAN PLATELET VOLUME 8.1 FL (7.0-11.0); MONOCYTE # 0.7 TH/MM3 (0-0.9); NEUT % 72.2 % (16.0-70.0); PLATELET COUNT 241 TH/MM3 (150-450); RED BLOOD COUNT 3.09 MIL/MM3 (4.00-5.30); RED CELL DISTRIBUTION WIDTH 13.6 % (11.6-17.2); WHITE BLOOD COUNT 6.6 TH/MM3 (4.0-11.0)
[2017-07-30 13:41] LABS: BLOOD UREA NITROGEN 8 MG/DL (7-18); CALCIUM 9.4 MG/DL (8.5-10.1); CHLORIDE 96 MEQ/L (98-107); CREATININE 0.54 MG/DL (0.50-1.00); GLOMERULAR FILTRATION RATE 109 ML/MIN (>89); GLUCOSE,RANDOM 114 MG/DL (74-106); POTASSIUM 3.9 MEQ/L (3.5-5.1); SODIUM (NA) 133 MEQ/L (136-145)
[2017-07-30 13:43] LABS: ANION GAP 13 MEQ/L (5-15); BICARBONATE 24.3 MEQ/L (21.0-32.0)
[2017-07-31] MEDS: LEVOTHYROXINE SODIUM 50 MCG TAB PO (06:00)
[2017-07-31] MEDS: DOCUSATE SODIUM 50 MG/SENNA 8.6 MG TAB PO ×4 (09:00→22:04)
[2017-07-31] MEDS: SODIUM CHLORIDE 1 GRAM TAB PO (09:01)
[2017-07-31] MEDS: ACETAMINOPHEN/HYDROcodone 325 MG/7.5 MG TAB PO ×4 (09:01→23:28)
[2017-07-31] MEDS: SODIUM CHLORIDE 0.9% FLUSH 10 ML FLUSH IV FLUSH ×2 (09:01→22:05)
[2017-07-31] MEDS: CHOLECALCIFEROL (VIT D3) 1000 UNIT TAB PO (09:01)
[2017-07-31] MEDS: HEPARIN SODIUM - SQ 10,000 UNITS/ML VIAL SQ ×2 (09:02→22:04)
[2017-07-31] MEDS: BENZONATATE 100 MG CAP PO ×2 (15:23→22:11)
[2017-07-31] MEDS: SODIUM CHLOR 0.45% 1000 ML INJ 1,000 ML IV (22:05)
[2017-08-01] MEDS: LEVOTHYROXINE SODIUM 50 MCG TAB PO (06:00)
[2017-08-01] MEDS: SODIUM CHLOR 0.45% 1000 ML INJ 1,000 ML IV ×2 (09:00→21:34)
[2017-08-01] MEDS: SODIUM CHLORIDE 0.9% FLUSH 10 ML FLUSH IV FLUSH ×2 (09:00→21:34)
[2017-08-01] MEDS: ACETAMINOPHEN/HYDROcodone 325 MG/7.5 MG TAB PO ×4 (09:22→21:33)
[2017-08-01] MEDS: CHOLECALCIFEROL (VIT D3) 1000 UNIT TAB PO (09:23)
[2017-08-01] MEDS: SODIUM CHLORIDE 1 GRAM TAB PO (09:23)
[2017-08-01] MEDS: DOCUSATE SODIUM 50 MG/SENNA 8.6 MG TAB PO ×2 (09:23→21:33)
[2017-08-01] MEDS: HEPARIN SODIUM - SQ 10,000 UNITS/ML VIAL SQ ×2 (09:25→21:33)
[2017-08-01] MEDS: BENZONATATE 100 MG CAP PO (13:42)
[2017-08-02] MEDS: LEVOTHYROXINE SODIUM 50 MCG TAB PO (06:00)
[2017-08-02] MEDS: MAGNESIUM HYDROXIDE SUSP 30 ML CUP PO (06:43)
[2017-08-02] MEDS: ACETAMINOPHEN/HYDROcodone 325 MG/7.5 MG TAB PO ×4 (06:44→22:31)
[2017-08-02] MEDS: DOCUSATE SODIUM 50 MG/SENNA 8.6 MG TAB PO ×2 (07:52→20:35)
[2017-08-02] MEDS: CHOLECALCIFEROL (VIT D3) 1000 UNIT TAB PO (07:53)
[2017-08-02] MEDS: SODIUM CHLORIDE 0.9% FLUSH 10 ML FLUSH IV FLUSH ×2 (07:53→20:35)
[2017-08-02] MEDS: SODIUM CHLORIDE 1 GRAM TAB PO (07:53)
[2017-08-02] MEDS: HEPARIN SODIUM - SQ 10,000 UNITS/ML VIAL SQ ×3 (07:53→20:36)
[2017-08-02] MEDS: SODIUM CHLOR 0.45% 1000 ML INJ 1,000 ML IV ×2 (07:58→22:17)
[2017-08-02] MEDS: BENZONATATE 100 MG CAP PO (20:37)
[2017-08-03] MEDS: LEVOTHYROXINE SODIUM 50 MCG TAB PO (06:27)
[2017-08-03] MEDS: ACETAMINOPHEN/HYDROcodone 325 MG/7.5 MG TAB PO ×2 (06:28→10:51)
[2017-08-03] MEDS: HEPARIN SODIUM - SQ 10,000 UNITS/ML VIAL SQ (09:00)
[2017-08-03] MEDS: SODIUM CHLORIDE 0.9% FLUSH 10 ML FLUSH IV FLUSH (09:00)
[2017-08-03] MEDS: SODIUM CHLORIDE 1 GRAM TAB PO (09:24)
[2017-08-03] MEDS: CHOLECALCIFEROL (VIT D3) 1000 UNIT TAB PO (09:24)
[2017-08-03] MEDS: DOCUSATE SODIUM 50 MG/SENNA 8.6 MG TAB PO (09:25)
[2017-08-03] MEDS: SODIUM CHLOR 0.45% 1000 ML INJ 1,000 ML IV (11:00)
[2017-08-03] MEDS: BENZONATATE 100 MG CAP PO (12:28)
== END 2017-08-03 13:26 | DRG 478 ==
LOC: N06B 07-29 16:42 → NEPE 09:41 → NEDA 12:34 → NEPFCDU 14:39
PROC: 0P943ZX Drainage of Thoracic Vertebra, Percutaneous Approach, Diagnostic (ICD-10-PCS; principal; 2017-07-29)
PROC: 0PS43ZZ Reposition Thoracic Vertebra, Percutaneous Approach (ICD-10-PCS; 2017-07-29)
PROC: 0QS03ZZ Reposition Lumbar Vertebra, Percutaneous Approach (ICD-10-PCS; 2017-07-29)
PROC: 0QU03JZ Supplement Lumbar Vertebra with Synthetic Substitute, Percutaneous Approach (ICD-10-PCS; 2017-07-29)
PROC: 0PU43JZ Supplement Thoracic Vertebra with Synthetic Substitute, Percutaneous Approach (ICD-10-PCS; 2017-07-29)
PROC: 0PS43ZZ Reposition Thoracic Vertebra, Percutaneous Approach (ICD-10-PCS; 2017-07-29)
PROC: 0PU43JZ Supplement Thoracic Vertebra with Synthetic Substitute, Percutaneous Approach (ICD-10-PCS; 2017-07-29)
DX: M48.54XA Collapsed vertebra, not elsewhere classified, thoracic region, initial encounter for fracture (principal); C79.31 Secondary malignant neoplasm of brain; J44.9 Chronic obstructive pulmonary disease, unspecified; E87.1 Hypo-osmolality and hyponatremia; M48.04 Spinal stenosis, thoracic region; C34.90 Malignant neoplasm of unspecified part of unspecified bronchus or lung; M48.56XA Collapsed vertebra, not elsewhere classified, lumbar region, initial encounter for fracture; E06.3 Autoimmune thyroiditis; M19.90 Unspecified osteoarthritis, unspecified site; H91.93 Unspecified hearing loss, bilateral; F32.9 Major depressive disorder, single episode, unspecified; F41.9 Anxiety disorder, unspecified; Z72.0 Tobacco use; Z88.1 Allergy status to other antibiotic agents; Z91.013 Allergy to seafood; Z92.3 Personal history of irradiation
CPT/HCPCS: 20225; 22513; 22515; 71045; 72072; 72110; 76000; 80048; 80053; 81001; 85025; 85610; 88307; 88311; 88341; 88342; 96374; 96375; 97110-GP; 97530-GP; 99285-25